=== PATIENT | male | born 1955 | race Caucasian/White ===

== ENCOUNTER 2018-04-02 12:10 | Emergency (ER) | payer BC ==
[~2018-04-02] VITALS: Ht 188 cm; Wt 127.2 kg
[~2018-04-02 12:10] MED LIST: ARA20T; BUDE0.5A11 IH; CLIN150C2 PO; CLON-527 PO; FLUO20CA39 PO; FOLI0.4T2 PO; FURO-150 PO; GEMF600T89 PO; HYDR-4353 PO; LISI10TA4 PO; MECL12.584 PO; METO-292 PO; METO50TA17 PO; MONT10TA24 PO; ONDA8TAB6 PO; PANC1CAP PO; PANT-47 PO; QUELT PO; THI100T PO; VALA100027 PO
[2018-04-02] MEDS ORDERED: GABA-530 PO (12:55)
[2018-04-02 13:28] LABS: BASOPHILS % (AUTO) 0.2 % (0-1); EOSINOPHILS % (AUTO) 0.4 % (0-6); HEMATOCRIT 41.6 % (42.0-52.0); HEMOGLOBIN 14.3 g/dl (14.0-17.9); LYMPHOCYTES # (AUTO) 0.9 X10'3 (1.1-4.8); LYMPHOCYTES % (AUTO) 11.1 % (21-51); MEAN CORPUSCULAR HEMOGLOBIN 32.7 PG (27.0-31.0); MEAN CORPUSCULAR HGB CONC 34.2 g/dL (33.0-36.5); MEAN CORPUSCULAR VOLUME 95.5 FL (78-98); MEAN PLATELET VOLUME 7.5 FL (7.4-10.4); MONOCYTES # (AUTO) 0.8 X10'3 (0-0.9); MONOCYTES % (AUTO) 10.3 % (2-12); NEUTROPHILS # (AUTO) 6.1 X10'3 (1.8-7.7); PLATELET COUNT 179 X10'3 (140-440); RED BLOOD COUNT 4.36 X10'6 (4.70-6.10); RED CELL DISTRIBUTION WIDTH 14.8 % (11.5-14.5); WHITE BLOOD COUNT 7.8 X10'3 (4.5-11.0)
[2018-04-02 13:45] LABS: ALANINE AMINOTRANSFERASE 42 U/L (12-78); ALBUMIN 3.6 G/DL (3.4-5.0); ALBUMIN/GLOBULIN RATIO 1.1 (1.1-1.5); ALKALINE PHOSPHATASE 84 IU/L (46-116); ANION GAP 13 (8-16); ASPARTATE AMINO TRANSFERASE 35 U/L (10-37); BLOOD UREA NITROGEN 19 MG/DL (7-18); BUN/CREATININE RATIO 27.1 (5.4-32.0); CALCIUM 8.9 MG/DL (8.5-10.1); CHLORIDE 97 MMOL/L (99-107); GLUCOSE 134 MG/DL (70-104); POTASSIUM 3.7 MMOL/L (3.5-5.1); SODIUM 138 MMOL/L (135-145); TOTAL CARBON DIOXIDE 28.1 MMOL/L (24-32); TOTAL PROTEIN 6.9 G/DL (6.4-8.2); eGFR > 90 ML/MIN
--- NOTE | 2018-04-02 14:41 | NUR ---
Call to Sadie to inform that Pt. is ready for D/C.
[2018-04-02 15:30] VITALS: BP 206/123
== END 2018-04-02 15:32 | disposition home or self-care (01) ==
LOC: ER 12:10
DX: R56.9 Unspecified convulsions (principal); R42 Dizziness and giddiness; R50.9 Fever, unspecified; R51 Headache; M25.511 Pain in right shoulder; R06.02 Shortness of breath; R18.8 Other ascites; I10 Essential (primary) hypertension; E78.00 Pure hypercholesterolemia, unspecified; J44.9 Chronic obstructive pulmonary disease, unspecified; F10.10 Alcohol abuse, uncomplicated; Z79.899 Other long term (current) drug therapy; Z88.7 Allergy status to serum and vaccine; Z87.891 Personal history of nicotine dependence; Y90.9 Presence of alcohol in blood, level not specified
CPT/HCPCS: 36415; 80053; 85025; 93005; 99284

== ENCOUNTER 2020-01-06 16:45 | Inpatient (IN) | payer BC ==
[~2020-01-06] VITALS: Ht 188 cm; Wt 127.7 kg
[~2020-01-06 16:45] MED LIST changes: -CLIN150C2 PO; +GABA-530 PO; +MECL-183 PO; -MECL12.584 PO; -MONT10TA24 PO; +MONT10TA26 PO; -VALA100027 PO; +VALA100031 PO
[2020-01-06 18:09] LABS: ALANINE AMINOTRANSFERASE 49 U/L (12-78); ALBUMIN 2.8 G/DL (3.4-5.0); ALBUMIN/GLOBULIN RATIO 0.7 (1.1-1.5); ALKALINE PHOSPHATASE 177 IU/L (46-116); ANION GAP 11 (8-16); ASPARTATE AMINO TRANSFERASE 95 U/L (10-37); BILIRUBIN,TOTAL 0.5 MG/DL (0.1-1.0); BLOOD UREA NITROGEN 11 MG/DL (7-18); BUN/CREATININE RATIO 12.9 (5.4-32.0); CALCIUM 8.6 MG/DL (8.5-10.1); CHLORIDE 97 MMOL/L (99-107); CREATININE 0.85 MG/DL (0.60-1.10); GLUCOSE 106 MG/DL (70-104); POTASSIUM 3.8 MMOL/L (3.5-5.1); SODIUM 133 MMOL/L (135-145); TOTAL CARBON DIOXIDE 24.8 MMOL/L (24-32); TOTAL PROTEIN 6.6 G/DL (6.4-8.2); eGFR > 90 ML/MIN
[2020-01-06 18:44] LABS: ETHANOL 0.163 GM/DL (0.0-0.010)
[2020-01-06 18:46] LABS: BASOPHILS # (AUTO) 0.1 X10'3 (0-0.2); BASOPHILS % (AUTO) 0.9 % (0-1); EOSINOPHILS # (AUTO) 0.5 X10'3 (0-0.9); EOSINOPHILS % (AUTO) 6.1 % (0-6); HEMATOCRIT 28.4 % (42.0-52.0); HEMOGLOBIN 9.8 g/dl (14.0-17.9); LYMPHOCYTES # (AUTO) 2.5 X10'3 (1.1-4.8); LYMPHOCYTES % (AUTO) 31.6 % (21-51); MEAN CORPUSCULAR HEMOGLOBIN 34.6 PG (27.0-31.0); MEAN CORPUSCULAR HGB CONC 34.5 g/dL (33.0-36.5); MEAN CORPUSCULAR VOLUME 100.5 FL (78-98); MEAN PLATELET VOLUME 8.6 FL (7.4-10.4); MONOCYTES # (AUTO) 1.2 X10'3 (0-0.9); MONOCYTES % (AUTO) 15.8 % (2-12); NEUTROPHILS # (AUTO) 3.6 X10'3 (1.8-7.7); NEUTROPHILS % (AUTO) 45.6 % (42-75); RED BLOOD COUNT 2.83 X10'6 (4.70-6.10); RED CELL DISTRIBUTION WIDTH 15.1 % (11.5-14.5); WHITE BLOOD COUNT 7.9 X10'3 (4.5-11.0)
[2020-01-06 19:10] LABS: CLARITY,URINE CLEAR (Clear); COLOR,URINE YELLOW (Yellow); GLUCOSE, URINE NEGATIVE (Neg); KETONES,URINE NEGATIVE (Neg); LEUKOCYTE ESTERASE ,URINE NEGATIVE (Neg); NITRITES, URINE NEGATIVE (Neg); OCCULT BLOOD,URINE NEGATIVE (Neg); PH,URINE 5.5 (4.8-8.0); PROTEIN,URINE NEGATIVE (Neg); UROBILINOGEN,URINE 0.2 E.U/dL (0.2-1.0)
[2020-01-06 19:19] LABS: PLATELET COUNT 41 X10'3 (140-440)
[2020-01-06 19:22] LABS: UA COLLECTION TYPE CLN CATCH MIDSTREAM
[2020-01-06] MEDS ORDERED: CefTRIAXone 2gm/D5W 50ml BAG 50 ML IV ONE (19:40)
[2020-01-06] MEDS ORDERED: vancomycin/NS 1 GM ADD-VANTAGE 250 ML IV ONE (19:40)
[2020-01-06] MEDS ORDERED: magnesium hydroxide 30ml (MOM) UD suspension PO PRN (20:35)
[2020-01-06] MEDS ORDERED: ondansetron/PF 4mg/2ml inj IV PRN (20:35)
[2020-01-06] MEDS ORDERED: potassium CL 10mEq/100ml bag 100 ML IV PRN ×2 (20:35)
[2020-01-06] MEDS ORDERED: potassium Cl 20 mEq SR tablet PO PRN ×2 (20:35)
[2020-01-06] MEDS ORDERED: LISI-600 PO (20:46)
[2020-01-06] MEDS ORDERED: HYDR-4353 PO (20:46)
[2020-01-06] MEDS ORDERED: LEVO500T89 PO (20:46)
[2020-01-06] MEDS ORDERED: LIPA1CAP18 PO (20:46)
[2020-01-06] MEDS ORDERED: FLO0.4C PO (20:46)
[2020-01-06] MEDS ORDERED: GEMF600T89 PO (20:46)
[2020-01-06] MEDS ORDERED: MULT-1085 PO (20:46)
[2020-01-06] MEDS ORDERED: PANT40TA54 PO (20:46)
[2020-01-06] MEDS ORDERED: PHEN-893 (20:46)
[2020-01-06] MEDS ORDERED: CEPH-572 PO (20:46)
[2020-01-06] MEDS ORDERED: FLUO20CA39 PO (20:46)
[2020-01-06] MEDS ORDERED: ONDA4TAB12 PO (20:46)
[2020-01-06] MEDS ORDERED: MOME17SP BOTHNARES (20:46)
[2020-01-06] MEDS ORDERED: MONT10TA26 PO (20:46)
[2020-01-06] MEDS ORDERED: CLON-527 PO (20:46)
[2020-01-06] MEDS: furosemide 10 MG/1 ML 10ml inj IV SCH (21:22)
[2020-01-06] MEDS: FLUoxetine 10mg capsule PO SCH (21:22)
[2020-01-06] MEDS: HYDROcodone/acetaminophen 10/325mg tab PO PRN (22:12)
[2020-01-06] MEDS: clonazePAM 0.5mg tablet PO SCH (22:12)
[2020-01-06] MEDS: LORazepam 2 mg/ml vial IV PRN (22:12)
[2020-01-06 23:05] VITALS: BP 125/66
[2020-01-07] MEDS ORDERED: vancomycin/NS 1 GM ADD-VANTAGE 250 ML IV SCH (04:00)
[2020-01-07] MEDS: HYDROcodone/acetaminophen 10/325mg tab PO PRN ×4 (04:23→20:27)
[2020-01-07] MEDS: LORazepam 2 mg/ml vial IV PRN ×3 (04:23→20:30)
[2020-01-07 06:00] VITALS: BP_SYST 104; BP_SYST 113; BP_DIAS 50; BP_DIAS 83
--- NOTE | 2020-01-07 06:05 | NUR ---
REPORT GIVEN TO JAM ASIF.
[2020-01-07 06:36] LABS: BASOPHILS % (AUTO) 0.5 % (0-1); EOSINOPHILS # (AUTO) 0.4 X10'3 (0-0.9); EOSINOPHILS % (AUTO) 4.4 % (0-6); HEMATOCRIT 29.2 % (42.0-52.0); HEMOGLOBIN 10.1 g/dl (14.0-17.9); LYMPHOCYTES # (AUTO) 1.3 X10'3 (1.1-4.8); LYMPHOCYTES % (AUTO) 15.5 % (21-51); MEAN CORPUSCULAR HEMOGLOBIN 34.6 PG (27.0-31.0); MEAN CORPUSCULAR HGB CONC 34.7 g/dL (33.0-36.5); MEAN CORPUSCULAR VOLUME 99.8 FL (78-98); MEAN PLATELET VOLUME 8.4 FL (7.4-10.4); MONOCYTES # (AUTO) 1.6 X10'3 (0-0.9); MONOCYTES % (AUTO) 18.8 % (2-12); NEUTROPHILS # (AUTO) 5.2 X10'3 (1.8-7.7); NEUTROPHILS % (AUTO) 60.8 % (42-75); RED BLOOD COUNT 2.93 X10'6 (4.70-6.10); WHITE BLOOD COUNT 8.6 X10'3 (4.5-11.0)
[2020-01-07 06:44] LABS: PLATELET COUNT 41 X10'3 (140-440)
--- NOTE | 2020-01-07 06:49 | NUR ---
Patient in room ORTHO 4021A. I have received report from JAM WEBER and had the opportunity to ask questions and assume patient care.
[2020-01-07 06:50] LABS: ALANINE AMINOTRANSFERASE 54 U/L (12-78); ALBUMIN 2.7 G/DL (3.4-5.0); ALBUMIN/GLOBULIN RATIO 0.7 (1.1-1.5); ALKALINE PHOSPHATASE 163 IU/L (46-116); ANION GAP 7 (8-16); ASPARTATE AMINO TRANSFERASE 116 U/L (10-37); BLOOD UREA NITROGEN 11 MG/DL (7-18); BUN/CREATININE RATIO 14.3 (5.4-32.0); CALCIUM 8.5 MG/DL (8.5-10.1); CHLORIDE 101 MMOL/L (99-107); CREATININE 0.77 MG/DL (0.60-1.10); GLUCOSE 113 MG/DL (70-104); POTASSIUM 4.5 MMOL/L (3.5-5.1); SODIUM 137 MMOL/L (135-145); TOTAL CARBON DIOXIDE 29.1 MMOL/L (24-32); TOTAL PROTEIN 6.4 G/DL (6.4-8.2); eGFR > 90 ML/MIN
--- NOTE | 2020-01-07 07:03 | NUR ---
Page Sent PAGER ID: [phone] MESSAGE: YEFRI 5430-RE: KAY SAEED, 4021A...CRITICAL LAB PLT 41
[2020-01-07 07:09] LABS: TOTAL CELLS COUNTED 100
[2020-01-07 07:10] LABS: PLATELET ESTIMATE DECREASED
[2020-01-07] MEDS: K and/or MAG REPLACEMENT MC SCH ×2 (07:13→20:00)
[2020-01-07] MEDS: tamsulosin 0.4mg capsule PO SCH (08:05)
[2020-01-07] MEDS: clonazePAM 0.5mg tablet PO SCH ×4 (08:06→20:27)
[2020-01-07] MEDS: gemfibrozil 600mg tablet PO SCH (08:06)
[2020-01-07] MEDS: pantoprazole 40mg Tablet.DR PO SCH (08:06)
[2020-01-07] MEDS: FLUoxetine 10mg capsule PO SCH ×3 (08:07→20:27)
[2020-01-07] MEDS: lisinopril 10 MG tablet PO SCH (08:07)
[2020-01-07] MEDS: spironolactone 25 MG tablet PO SCH (08:08)
[2020-01-07] MEDS: thiamine 100mg tablet PO SCH (08:08)
[2020-01-07] MEDS: fluticasone nasal spray 16GM bottle NS SCH (08:09)
[2020-01-07] MEDS: furosemide 10 MG/1 ML 10ml inj IV SCH ×2 (08:13→20:30)
[2020-01-07] MEDS: CefTRIAXone/D5W-Rocephin 1gm 50 ML IV SCH (08:18)
[2020-01-07] MEDS: vancomycin/NS 1 GM ADD-VANTAGE 250 ML IV SCH ×2 (10:55→20:25)
[2020-01-07] MEDS: mineral oil/petrolatum, white cream 113gm jar TP SCH (17:32)
[2020-01-07 18:00] VITALS: BP 127/53
--- NOTE | 2020-01-07 18:24 | NUR ---
Problems reprioritized. Patient report given, questions answered & plan of care reviewed with JAM ALCANTARA.
[2020-01-07] MEDS: NYSTATIN CREAM - 30GM TUBE TP SCH (20:00)
[2020-01-07 22:00] VITALS: BP 141/68
[2020-01-08] MEDS: LORazepam 2 mg/ml vial IV PRN ×2 (00:53→19:07)
--- NOTE | 2020-01-08 03:20 | NUR ---
PAGER ID: [phone] MESSAGE: "[id number] Carlitos Ott Patient is experiencing extreme pain rating at a 9 out of 10. Current Marblemount 10mg frequency is BID. Vital signs stable, RR of 18. Can we change his frequency to Q6Hr PRN? Thank You, Ria RN #[phone]" [id number] Dr Garcia approved giving one additional dose of Marblemount 10mg now and reevaluating the frequency with the attending physician during morning rounds.
[2020-01-08] MEDS: vancomycin/NS 1 GM ADD-VANTAGE 250 ML IV SCH (03:47)
[2020-01-08] MEDS: HYDROcodone/acetaminophen 10/325mg tab PO PRN ×2 (03:48→14:37)
[2020-01-08 06:00] VITALS: BP 118/62
[2020-01-08 06:05] LABS: BASOPHILS % (AUTO) 0.3 % (0-1); EOSINOPHILS # (AUTO) 0.5 X10'3 (0-0.9); EOSINOPHILS % (AUTO) 6.4 % (0-6); HEMATOCRIT 29.8 % (42.0-52.0); HEMOGLOBIN 10.4 g/dl (14.0-17.9); LYMPHOCYTES # (AUTO) 1.9 X10'3 (1.1-4.8); LYMPHOCYTES % (AUTO) 24.9 % (21-51); MEAN CORPUSCULAR HEMOGLOBIN 34.8 PG (27.0-31.0); MEAN CORPUSCULAR HGB CONC 34.8 g/dL (33.0-36.5); MEAN CORPUSCULAR VOLUME 99.9 FL (78-98); MEAN PLATELET VOLUME 8.8 FL (7.4-10.4); MONOCYTES # (AUTO) 1.6 X10'3 (0-0.9); MONOCYTES % (AUTO) 20.6 % (2-12); NEUTROPHILS # (AUTO) 3.7 X10'3 (1.8-7.7); NEUTROPHILS % (AUTO) 47.8 % (42-75); RED BLOOD COUNT 2.98 X10'6 (4.70-6.10); RED CELL DISTRIBUTION WIDTH 15.3 % (11.5-14.5); WHITE BLOOD COUNT 7.7 X10'3 (4.5-11.0)
--- NOTE | 2020-01-08 06:14 | NUR ---
Problems reprioritized. Patient report given, questions answered & plan of care reviewed with JAM Swift.
[2020-01-08 06:17] LABS: ALANINE AMINOTRANSFERASE 55 U/L (12-78); ALBUMIN 2.8 G/DL (3.4-5.0); ALBUMIN/GLOBULIN RATIO 0.7 (1.1-1.5); ALKALINE PHOSPHATASE 165 IU/L (46-116); ANION GAP 6 (8-16); ASPARTATE AMINO TRANSFERASE 84 U/L (10-37); BILIRUBIN,TOTAL 1.1 MG/DL (0.1-1.0); BLOOD UREA NITROGEN 9 MG/DL (7-18); BUN/CREATININE RATIO 11.5 (5.4-32.0); CALCIUM 8.8 MG/DL (8.5-10.1); CHLORIDE 102 MMOL/L (99-107); CREATININE 0.78 MG/DL (0.60-1.10); GLUCOSE 116 MG/DL (70-104); SODIUM 138 MMOL/L (135-145); TOTAL CARBON DIOXIDE 29.9 MMOL/L (24-32); TOTAL PROTEIN 6.6 G/DL (6.4-8.2); eGFR > 90 ML/MIN
[2020-01-08 06:37] LABS: PLATELET COUNT 50 X10'3 (140-440)
--- NOTE | 2020-01-08 06:38 | NUR ---
Patient in room ORTHO 4021A. I have received report from JAM ALCANTARA and had the opportunity to ask questions and assume patient care.
--- NOTE | 2020-01-08 07:20 | NUR ---
Page Sent PAGER ID: [phone] MESSAGE: KAY LYNCH 4021A...CRITICAL LAB...PLT 50...YESTERDAY PLT 41
[2020-01-08] MEDS: K and/or MAG REPLACEMENT MC SCH ×2 (07:23→20:00)
[2020-01-08] MEDS: tamsulosin 0.4mg capsule PO SCH (08:08)
[2020-01-08] MEDS: gemfibrozil 600mg tablet PO SCH (08:08)
[2020-01-08] MEDS: clonazePAM 0.5mg tablet PO SCH ×4 (08:08→21:38)
[2020-01-08] MEDS: pantoprazole 40mg Tablet.DR PO SCH (08:09)
[2020-01-08] MEDS: thiamine 100mg tablet PO SCH (08:09)
[2020-01-08] MEDS: FLUoxetine 10mg capsule PO SCH ×3 (08:09→21:38)
[2020-01-08] MEDS: cetirizine 10mg tablet PO SCH (08:10)
[2020-01-08] MEDS: lisinopril 10 MG tablet PO SCH (08:10)
[2020-01-08] MEDS: spironolactone 25 MG tablet PO SCH (08:12)
[2020-01-08] MEDS: fluticasone nasal spray 16GM bottle NS SCH (08:13)
[2020-01-08] MEDS: furosemide 10 MG/1 ML 10ml inj IV SCH ×2 (08:15→21:36)
[2020-01-08] MEDS: CefTRIAXone/D5W-Rocephin 1gm 50 ML IV SCH (08:23)
[2020-01-08] MEDS: NYSTATIN CREAM - 30GM TUBE TP SCH ×2 (08:35→20:00)
[2020-01-08] MEDS: mineral oil/petrolatum, white cream 113gm jar TP SCH (08:35)
[2020-01-08 10:00] VITALS: BP 109/55
[2020-01-08] MEDS ORDERED: VANCOMYCIN LEVEL IV ONE (10:30)
--- NOTE | 2020-01-08 12:28 | NUR ---
Page Sent PAGER ID: [phone] MESSAGE: YEFRI 5430-RE: KAY SAEED 4021A...JUST RECIEVED MEDICAL RECORDS FROM [facility]
[2020-01-08] MEDS: VANCOmycin 1250MG/NS 250ml Bag 250 ML IV SCH ×2 (14:33→21:36)
[2020-01-08] MEDS: mag hydrox/Alum hydrox/simeth 30ml oral suspension PO PRN (17:31)
[2020-01-08 18:00] VITALS: BP 109/70
--- NOTE | 2020-01-08 18:23 | NUR ---
Problems reprioritized. Patient report given, questions answered & plan of care reviewed with JAM ESQUIVEL.
--- NOTE | 2020-01-08 18:36 | NUR ---
Patient in room ORTHO 4021. I have received report from Jeniffer POLK and had the opportunity to ask questions and assume patient care.
[2020-01-08] MEDS ORDERED: LORazepam 2 mg/ml vial IV PRN (20:40)
[2020-01-08] MEDS: lactobacillus rhamnosus 10,000 MMU CELLS/CAPSULE PO SCH (21:38)
[2020-01-08 22:00] VITALS: BP 117/63
[2020-01-09] MEDS: HYDROcodone/acetaminophen 10/325mg tab PO PRN ×5 (00:54→22:33)
[2020-01-09] MEDS: LORazepam 1 MG tablet PO PRN ×2 (02:45→22:33)
[2020-01-09] MEDS: VANCOmycin 1250MG/NS 250ml Bag 250 ML IV SCH ×2 (04:12→12:07)
[2020-01-09 06:00] VITALS: BP 135/66
--- NOTE | 2020-01-09 06:29 | NUR ---
Problems reprioritized. Patient report given, questions answered & plan of care reviewed with Tamara POLK.
[2020-01-09 06:46] LABS: BASOPHILS % (AUTO) 0.4 % (0-1); EOSINOPHILS # (AUTO) 0.6 X10'3 (0-0.9); EOSINOPHILS % (AUTO) 7.5 % (0-6); HEMATOCRIT 28.9 % (42.0-52.0); LYMPHOCYTES # (AUTO) 2.2 X10'3 (1.1-4.8); LYMPHOCYTES % (AUTO) 25.9 % (21-51); MEAN CORPUSCULAR HEMOGLOBIN 34.5 PG (27.0-31.0); MEAN CORPUSCULAR HGB CONC 34.5 g/dL (33.0-36.5); MEAN CORPUSCULAR VOLUME 100.1 FL (78-98); MEAN PLATELET VOLUME 8.6 FL (7.4-10.4); MONOCYTES # (AUTO) 1.6 X10'3 (0-0.9); MONOCYTES % (AUTO) 18.3 % (2-12); NEUTROPHILS # (AUTO) 4.1 X10'3 (1.8-7.7); NEUTROPHILS % (AUTO) 47.9 % (42-75); PLATELET COUNT 83 X10'3 (140-440); RED BLOOD COUNT 2.88 X10'6 (4.70-6.10); RED CELL DISTRIBUTION WIDTH 15.3 % (11.5-14.5); WHITE BLOOD COUNT 8.5 X10'3 (4.5-11.0)
[2020-01-09 07:24] LABS: % IRON SATURATION 11 % (11-46); IRON 25 UG/DL (53-167); TOTAL IRON BINDING CAPACITY 232 UG/DL (259-388)
[2020-01-09 07:29] LABS: ALANINE AMINOTRANSFERASE 48 U/L (12-78); ALBUMIN 2.8 G/DL (3.4-5.0); ALBUMIN/GLOBULIN RATIO 0.7 (1.1-1.5); ALKALINE PHOSPHATASE 150 IU/L (46-116); ANION GAP 7 (8-16); ASPARTATE AMINO TRANSFERASE 59 U/L (10-37); BILIRUBIN,TOTAL 0.7 MG/DL (0.1-1.0); BLOOD UREA NITROGEN 11 MG/DL (7-18); BUN/CREATININE RATIO 13.1 (5.4-32.0); CALCIUM 8.8 MG/DL (8.5-10.1); CHLORIDE 101 MMOL/L (99-107); CREATININE 0.84 MG/DL (0.60-1.10); FERRITIN 442 NG/ML (26-388); GLUCOSE 108 MG/DL (70-104); POTASSIUM 3.5 MMOL/L (3.5-5.1); SODIUM 140 MMOL/L (135-145); TOTAL PROTEIN 6.6 G/DL (6.4-8.2); eGFR > 90 ML/MIN
[2020-01-09 07:57] LABS: PLATELET ESTIMATE DECREASED; TOTAL CELLS COUNTED 100
[2020-01-09] MEDS: NYSTATIN CREAM - 30GM TUBE TP SCH ×2 (08:00→20:35)
[2020-01-09] MEDS: K and/or MAG REPLACEMENT MC SCH ×2 (08:00→20:00)
[2020-01-09] MEDS: mineral oil/petrolatum, white cream 113gm jar TP SCH (08:00)
[2020-01-09] MEDS: lactobacillus rhamnosus 10,000 MMU CELLS/CAPSULE PO SCH ×2 (09:10→20:33)
[2020-01-09] MEDS: cetirizine 10mg tablet PO SCH (09:11)
[2020-01-09] MEDS: clonazePAM 0.5mg tablet PO SCH ×4 (09:11→20:33)
[2020-01-09] MEDS: tamsulosin 0.4mg capsule PO SCH (09:11)
[2020-01-09] MEDS: gemfibrozil 600mg tablet PO SCH (09:11)
[2020-01-09] MEDS: thiamine 100mg tablet PO SCH (09:12)
[2020-01-09] MEDS: lisinopril 10 MG tablet PO SCH (09:12)
[2020-01-09] MEDS: spironolactone 25 MG tablet PO SCH (09:13)
[2020-01-09] MEDS: FLUoxetine 10mg capsule PO SCH ×3 (09:13→20:33)
[2020-01-09] MEDS: pantoprazole 40mg Tablet.DR PO SCH (09:13)
[2020-01-09] MEDS: furosemide 10 MG/1 ML 10ml inj IV SCH ×2 (09:14→20:34)
[2020-01-09] MEDS: fluticasone nasal spray 16GM bottle NS SCH (09:15)
[2020-01-09] MEDS: CefTRIAXone/D5W-Rocephin 1gm 50 ML IV SCH (09:15)
[2020-01-09 10:00] VITALS: BP 121/60
--- NOTE | 2020-01-09 11:08 | NUR ---
Patient in room ORTHO 4021. I have received report from Tamara. JAM and had the opportunity to ask questions and assume patient care.
[2020-01-09] MEDS ORDERED: VANCOMYCIN LEVEL IV ONE (11:30)
--- NOTE | 2020-01-09 11:30 | NUR ---
Report called to Jenelle- tranferred patient to surgical 344A- all belongings sent with patient.
--- NOTE | 2020-01-09 12:20 | NUR ---
Vanco trough 20.3. Pharmacy informed; stated give 1200 dose, will adjust next dose. Pt resting in room V/S 98.0, 79,18,96% R/A, 130/73. C/O 9/10 pain PRN pain med given.
[2020-01-09 12:24] VITALS: BP 130/73
[2020-01-09 18:15] VITALS: BP 119/70
--- NOTE | 2020-01-09 18:39 | NUR ---
Problems reprioritized. Patient report given, questions answered & plan of care reviewed with JAM Mahmood.
--- NOTE | 2020-01-09 18:40 | NUR ---
Patient in room NEDA 344. I have received report from JAM Almanzar and had the opportunity to ask questions and assume patient care.
[2020-01-09] MEDS: mag hydrox/Alum hydrox/simeth 30ml oral suspension PO PRN (20:33)
[2020-01-09] MEDS: vancomycin/NS 1 GM ADD-VANTAGE 250 ML IV SCH (20:35)
[2020-01-10 00:15] VITALS: BP 127/68
[2020-01-10] MEDS: HYDROcodone/acetaminophen 10/325mg tab PO PRN ×5 (03:32→23:28)
[2020-01-10] MEDS: vancomycin/NS 1 GM ADD-VANTAGE 250 ML IV SCH ×3 (04:46→21:22)
[2020-01-10] MEDS: LORazepam 1 MG tablet PO PRN (04:54)
--- NOTE | 2020-01-10 05:00 | NUR ---
Pt c/o of generalized itchy. Paged Dr. Brady for anti-itch med.
--- NOTE | 2020-01-10 06:30 | NUR ---
Patient in room NEDA 344. I have received report from JAM Mahmood and had the opportunity to ask questions and assume patient care.
--- NOTE | 2020-01-10 06:49 | NUR ---
Problems reprioritized. Patient report given, questions answered & plan of care reviewed with JAM Almanzar.
[2020-01-10 07:03] LABS: BASOPHILS # (AUTO) 0.1 X10'3 (0-0.2); BASOPHILS % (AUTO) 0.5 % (0-1); EOSINOPHILS # (AUTO) 0.8 X10'3 (0-0.9); EOSINOPHILS % (AUTO) 7.8 % (0-6); HEMOGLOBIN 10.8 g/dl (14.0-17.9); LYMPHOCYTES # (AUTO) 2.4 X10'3 (1.1-4.8); LYMPHOCYTES % (AUTO) 23.9 % (21-51); MEAN CORPUSCULAR HEMOGLOBIN 34.1 PG (27.0-31.0); MEAN CORPUSCULAR HGB CONC 33.9 g/dL (33.0-36.5); MEAN CORPUSCULAR VOLUME 100.5 FL (78-98); MEAN PLATELET VOLUME 7.6 FL (7.4-10.4); MONOCYTES # (AUTO) 1.9 X10'3 (0-0.9); MONOCYTES % (AUTO) 18.2 % (2-12); NEUTROPHILS # (AUTO) 5.1 X10'3 (1.8-7.7); NEUTROPHILS % (AUTO) 49.6 % (42-75); PLATELET COUNT 143 X10'3 (140-440); RED BLOOD COUNT 3.18 X10'6 (4.70-6.10); RED CELL DISTRIBUTION WIDTH 15.2 % (11.5-14.5); WHITE BLOOD COUNT 10.2 X10'3 (4.5-11.0)
[2020-01-10] MEDS: furosemide 10 MG/1 ML 10ml inj IV SCH ×2 (07:19→21:21)
[2020-01-10 07:21] LABS: ALANINE AMINOTRANSFERASE 45 U/L (12-78); ALBUMIN 3.1 G/DL (3.4-5.0); ALBUMIN/GLOBULIN RATIO 0.8 (1.1-1.5); ALKALINE PHOSPHATASE 167 IU/L (46-116); ANION GAP 8 (8-16); ASPARTATE AMINO TRANSFERASE 61 U/L (10-37); BILIRUBIN,TOTAL 0.6 MG/DL (0.1-1.0); BLOOD UREA NITROGEN 13 MG/DL (7-18); BUN/CREATININE RATIO 14.8 (5.4-32.0); CALCIUM 9.2 MG/DL (8.5-10.1); CHLORIDE 103 MMOL/L (99-107); CREATININE 0.88 MG/DL (0.60-1.10); GLUCOSE 111 MG/DL (70-104); POTASSIUM 3.6 MMOL/L (3.5-5.1); SODIUM 141 MMOL/L (135-145); TOTAL CARBON DIOXIDE 29.6 MMOL/L (24-32); TOTAL PROTEIN 7.1 G/DL (6.4-8.2); eGFR 87 ML/MIN
[2020-01-10] MEDS: CefTRIAXone/D5W-Rocephin 1gm 50 ML IV SCH (07:21)
[2020-01-10] MEDS: lactobacillus rhamnosus 10,000 MMU CELLS/CAPSULE PO SCH ×2 (07:26→21:22)
[2020-01-10] MEDS: tamsulosin 0.4mg capsule PO SCH (07:26)
[2020-01-10] MEDS: lisinopril 10 MG tablet PO SCH (07:26)
[2020-01-10] MEDS: clonazePAM 0.5mg tablet PO SCH ×4 (07:26→21:22)
[2020-01-10] MEDS: gemfibrozil 600mg tablet PO SCH (07:27)
[2020-01-10] MEDS: thiamine 100mg tablet PO SCH (07:27)
[2020-01-10] MEDS: pantoprazole 40mg Tablet.DR PO SCH (07:27)
[2020-01-10] MEDS: cetirizine 10mg tablet PO SCH (07:27)
[2020-01-10] MEDS: FLUoxetine 10mg capsule PO SCH ×3 (07:28→21:21)
[2020-01-10] MEDS: fluticasone nasal spray 16GM bottle NS SCH (07:29)
[2020-01-10] MEDS: spironolactone 25 MG tablet PO SCH (07:32)
[2020-01-10 08:00] VITALS: BP 134/83
[2020-01-10] MEDS: K and/or MAG REPLACEMENT MC SCH ×2 (08:00→20:00)
[2020-01-10] MEDS: NYSTATIN CREAM - 30GM TUBE TP SCH ×2 (08:00→21:22)
[2020-01-10] MEDS: mineral oil/petrolatum, white cream 113gm jar TP SCH (08:00)
[2020-01-10 08:01] LABS: TOTAL CELLS COUNTED 100
[2020-01-10 08:02] LABS: PLATELET ESTIMATE NORMAL
[2020-01-10 08:03] LABS: POLYCHROMASIA FEW
[2020-01-10 08:04] LABS: GIANT PLATELET FEW
[2020-01-10 08:05] LABS: LARGE PLATELETS FEW
--- NOTE | 2020-01-10 15:06 | NUR ---
Initial: Pt admit with BLE cellulitis. Per WO notes pt with BLE dried venous ulcers and some partial thickness openings to gluteal sulcus and under pannus. Pt currently on a heart healthy diet documented with mostly average 75-100% PO intake meeting estimated nutrient needs with adequate protein to support skin integrity. Multiple attempted visits with pt at bedside to obtain food preferences and assess need for nutrition intervention however pt unavailable. LB 01/08. No nutrition intervention implemented at this time. Will continue to follow. Recommendations: 1) Continue heart healthy diet 2) Monitor need for additional protein 3) Bowel care per rx 4) Scaled weights per rx Addendum: 01/10/20 at [address] Amended: Links added.
[2020-01-10 18:15] VITALS: BP 131/75
--- NOTE | 2020-01-10 18:42 | NUR ---
Problems reprioritized. Patient report given, questions answered & plan of care reviewed with JAM Mahmood.
--- NOTE | 2020-01-10 18:49 | NUR ---
Patient in room NEDA 344. I have received report from JAM Almanzar and had the opportunity to ask questions and assume patient care.
[2020-01-10] MEDS ORDERED: VANCOMYCIN LEVEL IV ONE (19:30)
[2020-01-10] MEDS ORDERED: LORazepam 1 MG tablet PO PRN (20:40)
--- NOTE | 2020-01-10 21:20 | NUR ---
[facility] 21.5. Talked to Pharmacist, Pancho and okay to administered bag at 2000
[2020-01-10] MEDS: hydrocortisone 1% cream 28gm TP SCH (21:22)
[2020-01-10] MEDS: mag hydrox/Alum hydrox/simeth 30ml oral suspension PO PRN (23:28)
[2020-01-10] MEDS: benzocaine/menthol oral lozeng 1 EACH BOX MM PRN (23:31)
[2020-01-11 00:15] VITALS: BP 129/63
[2020-01-11 03:59] LABS: OCCULT BLOOD STOOL POSITIVE (Neg)
[2020-01-11] MEDS: vancomycin/NS 1 GM ADD-VANTAGE 250 ML IV SCH ×2 (04:58→05:45)
[2020-01-11] MEDS: HYDROcodone/acetaminophen 10/325mg tab PO PRN ×2 (05:42→10:44)
[2020-01-11 06:01] LABS: BASOPHILS % (AUTO) 0.4 % (0-1); EOSINOPHILS # (AUTO) 0.9 X10'3 (0-0.9); EOSINOPHILS % (AUTO) 8.3 % (0-6); HEMATOCRIT 33.3 % (42.0-52.0); HEMOGLOBIN 11.3 g/dl (14.0-17.9); LYMPHOCYTES # (AUTO) 2.7 X10'3 (1.1-4.8); MEAN CORPUSCULAR HEMOGLOBIN 34.1 PG (27.0-31.0); MEAN CORPUSCULAR HGB CONC 33.9 g/dL (33.0-36.5); MEAN CORPUSCULAR VOLUME 100.6 FL (78-98); MEAN PLATELET VOLUME 7.7 FL (7.4-10.4); MONOCYTES # (AUTO) 1.5 X10'3 (0-0.9); MONOCYTES % (AUTO) 13.9 % (2-12); NEUTROPHILS # (AUTO) 5.7 X10'3 (1.8-7.7); NEUTROPHILS % (AUTO) 52.4 % (42-75); PLATELET COUNT 209 X10'3 (140-440); RED BLOOD COUNT 3.31 X10'6 (4.70-6.10); RED CELL DISTRIBUTION WIDTH 15.6 % (11.5-14.5); WHITE BLOOD COUNT 10.8 X10'3 (4.5-11.0)
--- NOTE | 2020-01-11 06:30 | NUR ---
Patient in room NEDA 344. I have received report from JAM Mahmood and had the opportunity to ask questions and assume patient care.
--- NOTE | 2020-01-11 06:41 | NUR ---
Problems reprioritized. Patient report given, questions answered & plan of care reviewed with JAM Armstrong.
[2020-01-11 06:48] LABS: ALANINE AMINOTRANSFERASE 46 U/L (12-78); ALBUMIN 3.2 G/DL (3.4-5.0); ALBUMIN/GLOBULIN RATIO 0.7 (1.1-1.5); ALKALINE PHOSPHATASE 162 IU/L (46-116); ANION GAP 11 (8-16); BILIRUBIN,TOTAL 0.7 MG/DL (0.1-1.0); BLOOD UREA NITROGEN 14 MG/DL (7-18); BUN/CREATININE RATIO 17.1 (5.4-32.0); CALCIUM 9.1 MG/DL (8.5-10.1); CHLORIDE 99 MMOL/L (99-107); CREATININE 0.82 MG/DL (0.60-1.10); GLUCOSE 94 MG/DL (70-104); SODIUM 138 MMOL/L (135-145); TOTAL CARBON DIOXIDE 27.7 MMOL/L (24-32); TOTAL PROTEIN 7.7 G/DL (6.4-8.2); eGFR > 90 ML/MIN
[2020-01-11 06:54] LABS: ASPARTATE AMINO TRANSFERASE 73 U/L (10-37); POTASSIUM 3.8 MMOL/L (3.5-5.1)
[2020-01-11 07:00] VITALS: BP 124/73
[2020-01-11] MEDS: lactobacillus rhamnosus 10,000 MMU CELLS/CAPSULE PO SCH (07:30)
[2020-01-11] MEDS: fluticasone nasal spray 16GM bottle NS SCH (07:30)
[2020-01-11] MEDS: lisinopril 10 MG tablet PO SCH (07:31)
[2020-01-11] MEDS: clonazePAM 0.5mg tablet PO SCH ×2 (07:31→14:06)
[2020-01-11] MEDS: cetirizine 10mg tablet PO SCH (07:31)
[2020-01-11] MEDS: gemfibrozil 600mg tablet PO SCH (07:31)
[2020-01-11] MEDS: FLUoxetine 10mg capsule PO SCH ×2 (07:31→14:07)
[2020-01-11] MEDS: tamsulosin 0.4mg capsule PO SCH (07:36)
[2020-01-11] MEDS: pantoprazole 40mg Tablet.DR PO SCH (07:36)
[2020-01-11] MEDS: thiamine 100mg tablet PO SCH (07:36)
[2020-01-11] MEDS: NYSTATIN CREAM - 30GM TUBE TP SCH (07:37)
[2020-01-11] MEDS: spironolactone 25 MG tablet PO SCH (07:37)
[2020-01-11] MEDS: mineral oil/petrolatum, white cream 113gm jar TP SCH (07:37)
[2020-01-11] MEDS: furosemide 10 MG/1 ML 10ml inj IV SCH ×2 (08:00→08:49)
[2020-01-11] MEDS: hydrocortisone 1% cream 28gm TP SCH (08:00)
[2020-01-11] MEDS ORDERED: VANCOMYCIN 750MG IV in NS 250 ML IV SCH (08:00)
[2020-01-11] MEDS: K and/or MAG REPLACEMENT MC SCH (08:00)
[2020-01-11] MEDS: CefTRIAXone/D5W-Rocephin 1gm 50 ML IV SCH (08:49)
[2020-01-11 11:00] VITALS: BP 122/60
[2020-01-11] MEDS: benzocaine/menthol oral lozeng 1 EACH BOX MM PRN (12:09)
[2020-01-11] MEDS ORDERED: MYC15CR TP (13:58)
[2020-01-11] MEDS ORDERED: BENZ1LOZ30 MM (13:58)
[2020-01-11] MEDS ORDERED: LACT1CAP26 PO (13:58)
[2020-01-11] MEDS ORDERED: SPIR25TA5 PO (13:58)
[2020-01-11] MEDS ORDERED: THIA50TA10 PO (13:58)
[2020-01-11] MEDS ORDERED: FOLI0.4T2 PO (13:58)
[2020-01-11] MEDS ORDERED: HYDR28CR14 TP (13:58)
[2020-01-11] MEDS ORDERED: WOOL454C TP (13:58)
[2020-01-11] MEDS ORDERED: FURO-150 PO (13:58)
[2020-01-11] MEDS ORDERED: CEFD300C3 PO (13:58)
[2020-01-12] MEDS ORDERED: VANCOMYCIN LEVEL IV ONE (07:30)
== END 2020-01-11 14:50 | disposition home health service (06) | DRG 603 ==
LOC: ER 16:46 → ED HOLD 20:34 → ORTHO 4S 22:41 → SUR 3N 01-09 11:33
PROVIDERS: ADMIT Internal Medicine; ATTEND Family Medicine
DX: L03.115 Cellulitis of right lower limb (principal); E87.2 Acidosis; D69.6 Thrombocytopenia, unspecified; L03.116 Cellulitis of left lower limb; E66.01 Morbid (severe) obesity due to excess calories; E78.00 Pure hypercholesterolemia, unspecified; E87.70 Fluid overload, unspecified; F10.10 Alcohol abuse, uncomplicated; I10 Essential (primary) hypertension; J44.9 Chronic obstructive pulmonary disease, unspecified; R63.3 Feeding difficulties; Z82.5 Family history of asthma and other chronic lower respiratory diseases; Z20.828 Contact with and (suspected) exposure to other viral communicable diseases; Z68.36 Body mass index [BMI] 36.0-36.9, adult
CPT/HCPCS: 36415; 71045; 76937; 80053; 80202; 80320; 81003; 82272; 82728; 82948; 83540; 83550; 83605; 83880; 84145; 84443; 84484; 85007; 85025; 87040; 87081; 87635; 87880; 93005; 93308; 96365; 97110; 97116; 97161; 97530; 99285; C9803; G0378; J0696; J1940; J2060; J3370; J7050

== ENCOUNTER 2020-04-05 17:48 | Inpatient (IN) | payer BC ==
[~2020-04-05] VITALS: Ht 188 cm; Wt 127.0 kg
[~2020-04-05 17:48] MED LIST changes: -ARA20T; +BENZ1LOZ30 MM; -BUDE0.5A11 IH; +FLO0.4C PO; -FOLI0.4T2 PO; -FURO-150 PO; -GABA-530 PO; +HYDR28CR14 TP; +LACT1CAP26 PO; +LIPA1CAP18 PO; -LISI10TA4 PO; +LISI20TA28 PO; -MECL-183 PO; -METO-292 PO; -METO50TA17 PO; +MOME17SP BOTHNARES; -MONT10TA26 PO; +MONT10TA32 PO; +MULT-1085 PO; +MYC15CR TP; +ONDA4TAB12 PO; -ONDA8TAB6 PO; -PANC1CAP PO; -PANT-47 PO; +PANT40TA54 PO; +PHEN-893; -QUELT PO; +SPIR25TA5 PO; -THI100T PO; +THIA50TA10 PO; -VALA100031 PO; +WOOL454C TP
--- NOTE | 2020-04-05 19:33 | NUR ---
STOOD AT BEDSIDE TO TRY TO VOID AGAIN, PATIENT UNABLE TO VOID X 2, PATIETN UNSTEADY ON FEET PA AWARE
[2020-04-05 19:43] LABS: BASOPHILS # (AUTO) 0.4 X10'3 (0-0.2); HEMOGLOBIN 10.8 g/dl (14.0-17.9); LYMPHOCYTES # (AUTO) 4.2 X10'3 (1.1-4.8); MEAN PLATELET VOLUME 7.8 FL (7.4-10.4); PLATELET COUNT 396 X10'3 (140-440); RED CELL DISTRIBUTION WIDTH 14.8 % (11.5-14.5)
[2020-04-05 19:45] LABS: BASOPHILS % (AUTO) 3.6 % (0-1); EOSINOPHILS # (AUTO) 0.4 X10'3 (0-0.9); EOSINOPHILS % (AUTO) 3.8 % (0-6); HEMATOCRIT 32.2 % (42.0-52.0); MEAN CORPUSCULAR HEMOGLOBIN 32.1 PG (27.0-31.0); MEAN CORPUSCULAR HGB CONC 33.5 g/dL (33.0-36.5); MEAN CORPUSCULAR VOLUME 96.1 FL (78-98); MONOCYTES % (AUTO) 8.6 % (2-12); NEUTROPHILS # (AUTO) 5.6 X10'3 (1.8-7.7); RED BLOOD COUNT 3.36 X10'6 (4.70-6.10); WHITE BLOOD COUNT 11.6 X10'3 (4.5-11.0)
[2020-04-05 20:20] LABS: PLATELET ESTIMATE NORMAL; TOTAL CELLS COUNTED 100
[2020-04-05 20:26] LABS: CLARITY,URINE CLEAR (Clear); COLOR,URINE YELLOW (Yellow); GLUCOSE, URINE NEGATIVE (Neg); KETONES,URINE NEGATIVE (Neg); LEUKOCYTE ESTERASE ,URINE NEGATIVE (Neg); NITRITES, URINE NEGATIVE (Neg); OCCULT BLOOD,URINE NEGATIVE (Neg); PROTEIN,URINE NEGATIVE (Neg); UROBILINOGEN,URINE 0.2 E.U/dL (0.2-1.0)
[2020-04-05 20:32] LABS: UA COLLECTION TYPE NON-SPECIFIED
[2020-04-05 20:35] LABS: ALANINE AMINOTRANSFERASE 44 U/L (12-78); ALBUMIN 3.7 G/DL (3.4-5.0); ALBUMIN/GLOBULIN RATIO 0.9 (1.1-1.5); ALKALINE PHOSPHATASE 134 IU/L (46-116); ANION GAP 10 (8-16); ASPARTATE AMINO TRANSFERASE 50 U/L (10-37); BILIRUBIN,TOTAL 0.3 MG/DL (0.1-1.0); BLOOD UREA NITROGEN 15 MG/DL (7-18); CALCIUM 9.2 MG/DL (8.5-10.1); CHLORIDE 101 MMOL/L (99-107); CREATININE 0.79 MG/DL (0.60-1.10); ETHANOL 0.285 GM/DL (0.0-0.010); GLUCOSE 106 MG/DL (70-104); POTASSIUM 4.2 MMOL/L (3.5-5.1); SODIUM 137 MMOL/L (135-145); TOTAL CARBON DIOXIDE 25.7 MMOL/L (24-32); TOTAL PROTEIN 7.6 G/DL (6.4-8.2); eGFR > 90 ML/MIN
[2020-04-05 20:40] LABS: URINE AMPHETAMINE SCREEN NEGATIVE (Neg); URINE BARBITUATE SCREEN NEGATIVE (Neg); URINE BENZODIAZEPINES SCREEN NEGATIVE (Neg); URINE CANNABINOID SCREEN NEGATIVE (Neg); URINE COCAINE SCREEN NEGATIVE (Neg); URINE METHADONE SCREEN NEGATIVE (Neg); URINE OPIATE SCREEN POSITIVE (Neg); URINE PHENCYCLIDINE SCREEN NEGATIVE (Neg)
--- NOTE | 2020-04-05 21:19 | NUR ---
ABDI HILLMAN IN ROOM DISCUSSING NEED TO LEAVE CATHETER IN DISCUSSED PAIN MEDICINE P[ATIENT STILL VOICING DESIRE TO KILL ONE SELF
[2020-04-05] MEDS ORDERED: morphine 4 MG/ML inj SYRINge IV ONE (21:40)
[2020-04-05] MEDS ORDERED: vancomycin inj 2,000 MG in normal saline 500ml IV soln 500 ML IV ONE (22:00)
[2020-04-05] MEDS ORDERED: acetaminophen 325mg tablet PO PRN (22:25)
[2020-04-05] MEDS ORDERED: potassium Cl 20 mEq SR tablet PO PRN ×2 (22:25)
[2020-04-05] MEDS ORDERED: magnesium hydroxide 30ml (MOM) UD suspension PO PRN (22:25)
[2020-04-05] MEDS ORDERED: mag hydrox/Alum hydrox/simeth 30ml oral suspension PO PRN (22:25)
[2020-04-05] MEDS ORDERED: magnesium 4gm in 100ml NS 100 ML IV PRN (22:25)
[2020-04-05] MEDS ORDERED: potassium Cl 40MEQ/1/2NS 520ml 520 ML IV PRN ×2 (22:25)
[2020-04-05] MEDS ORDERED: morphine 2 MG/ML inj. syringe IV PRN ×3 (22:25→22:30)
[2020-04-05] MEDS ORDERED: magnesium 2GM in 50ml NS 50 ML IV PRN (22:25)
[2020-04-05 23:03] LABS: HEMOGLOBIN A1C 5.4 % (4.5-6.2)
[2020-04-05] MEDS: thiamine inj. 100 MG in normal saline 100ml IV soln 100 ML IV SCH (23:10)
[2020-04-06 00:40] VITALS: BP 153/85
[2020-04-06] MEDS: morphine 4 MG/ML inj SYRINge IV PRN ×6 (01:21→23:47)
--- NOTE | 2020-04-06 02:25 | NUR ---
NOTIFIED R/T NO RELIEF OF PAIN, STATES THAT SHE DISCUSSED THIS WITH THE PT AND HE DID NOT WANT NORCO. SHE INCREASED THE PAIN MED FROM 2MG TO 4MG IV, SHE IS NOT GOING TO ORDER DILAUDID. PT ADVISED TO KEEP LEGS ELEVATED ABOVE HEART LEVEL. HE CONTINUES TO ASK IF HE CAN DANGLE HIS LEGS.
[2020-04-06] MEDS ORDERED: haloperidol 5mg tablet PO PRN (04:55)
[2020-04-06] MEDS ORDERED: haloperidol lactate 5mg/ml inj IM PRN (04:55)
[2020-04-06] MEDS ORDERED: LORazepam 2 mg/ml vial IV PRN (04:55)
[2020-04-06] MEDS: ondansetron/PF 4mg/2ml inj IV PRN (05:20)
--- NOTE | 2020-04-06 06:30 | NUR ---
Patient in room NEDA 357. I have received report from JAM Madrid and had the opportunity to ask questions and assume patient care.
[2020-04-06 06:34] LABS: BASOPHILS # (AUTO) 0.1 X10'3 (0-0.2); BASOPHILS % (AUTO) 1.1 % (0-1); EOSINOPHILS # (AUTO) 0.4 X10'3 (0-0.9); EOSINOPHILS % (AUTO) 3.8 % (0-6); HEMATOCRIT 28.8 % (42.0-52.0); HEMOGLOBIN 10.1 g/dl (14.0-17.9); LYMPHOCYTES # (AUTO) 1.2 X10'3 (1.1-4.8); LYMPHOCYTES % (AUTO) 11.9 % (21-51); MEAN CORPUSCULAR HEMOGLOBIN 33.1 PG (27.0-31.0); MEAN CORPUSCULAR HGB CONC 35.1 g/dL (33.0-36.5); MEAN CORPUSCULAR VOLUME 94.2 FL (78-98); MEAN PLATELET VOLUME 7.6 FL (7.4-10.4); MONOCYTES # (AUTO) 0.9 X10'3 (0-0.9); MONOCYTES % (AUTO) 8.8 % (2-12); NEUTROPHILS # (AUTO) 7.2 X10'3 (1.8-7.7); NEUTROPHILS % (AUTO) 74.4 % (42-75); PLATELET COUNT 331 X10'3 (140-440); RED BLOOD COUNT 3.06 X10'6 (4.70-6.10); RED CELL DISTRIBUTION WIDTH 14.4 % (11.5-14.5); WHITE BLOOD COUNT 9.7 X10'3 (4.5-11.0)
--- NOTE | 2020-04-06 06:34 | NUR ---
REPORT GIVEN TO JAM TRENT.
[2020-04-06 07:02] LABS: ALANINE AMINOTRANSFERASE 41 U/L (12-78); ALBUMIN 3.3 G/DL (3.4-5.0); ALBUMIN/GLOBULIN RATIO 0.9 (1.1-1.5); ALKALINE PHOSPHATASE 112 IU/L (46-116); AMYLASE 48 U/L (25-115); ANION GAP 11 (8-16); ASPARTATE AMINO TRANSFERASE 41 U/L (10-37); BILIRUBIN,TOTAL 0.4 MG/DL (0.1-1.0); BLOOD UREA NITROGEN 11 MG/DL (7-18); CALCIUM 9.5 MG/DL (8.5-10.1); CHLORIDE 103 MMOL/L (99-107); CHOL/HDL RATIO 1.8 (0.00-4.99); CHOLESTEROL 194 MG/DL (0-200); CREATININE 0.58 MG/DL (0.60-1.10); GLUCOSE 113 MG/DL (70-104); HDL CHOLESTEROL 110 MG/DL (35-60); LDL CHOLESTEROL 73 MG/DL (50-100); LIPASE 67 U/L (73-393); MAGNESIUM 1.3 MG/DL (1.5-2.4); PHOSPHORUS 3.2 MG/DL (2.3-4.5); SODIUM 138 MMOL/L (135-145); TOTAL CARBON DIOXIDE 23.7 MMOL/L (24-32); TOTAL PROTEIN 6.8 G/DL (6.4-8.2); TRIGLYCERIDES 37 MG/DL (20-135); eGFR > 90 ML/MIN
[2020-04-06 07:04] VITALS: BP 129/70
[2020-04-06] MEDS: multivitamins, therapeutics tablet PO SCH (07:43)
[2020-04-06] MEDS: LORazepam 2 mg/ml vial IV PRN ×4 (07:43→22:11)
[2020-04-06] MEDS: enoxaparin 40mg/0.4ml syringe SUBCUT SCH (07:45)
[2020-04-06] MEDS: folic acid 1mg/0.2ml inj IV SCH (07:45)
[2020-04-06] MEDS: thiamine inj. 100 MG in normal saline 100ml IV soln 100 ML IV SCH (07:46)
[2020-04-06] MEDS: K and/or MAG REPLACEMENT MC SCH ×2 (08:00→19:23)
[2020-04-06] MEDS ORDERED: thiamine inj. 100 MG, MVI, adult No.4 with vit. K 10 ML in dextrose 5% water 500ml 500 ML IV SCH ×3 (08:00)
[2020-04-06] MEDS: vancomycin/NS 1 GM ADD-VANTAGE 250 ML X 1 DOSE IV SCH ×3 (09:56→23:34)
[2020-04-06] MEDS ORDERED: VANCOmycin 1250MG/NS 250ml Bag 250 ML IV SCH (11:00)
[2020-04-06] MEDS: magnesium Cl slow-release 64mg tablet PO PRN ×2 (11:23→19:31)
[2020-04-06 12:00] VITALS: BP 138/61
--- NOTE | 2020-04-06 12:45 | NUR ---
Patient has continually asked to have catheter removed. Addressed with patient that we need to wait for physician orders. Patient acknowledged.
[2020-04-06] MEDS ORDERED: APIX5TAB3 PO (13:52)
[2020-04-06] MEDS ORDERED: FURO20TA4 (13:55)
[2020-04-06] MEDS ORDERED: TIOT18CA3 INH (13:55)
[2020-04-06] MEDS ORDERED: CLON-369 (13:55)
[2020-04-06] MEDS ORDERED: PENI-88 PO (14:08)
[2020-04-06] MEDS ORDERED: GABA300C PO (14:08)
[2020-04-06] MEDS ORDERED: CARV12.545 PO (14:08)
[2020-04-06] MEDS ORDERED: AZEL137S4 BOTHNARES (14:08)
[2020-04-06] MEDS ORDERED: FURO40TA4 PO (14:08)
[2020-04-06] MEDS ORDERED: OLOP5DRO14 EACHEYE (14:08)
[2020-04-06] MEDS ORDERED: BUDE0.5A3 NEB (14:08)
[2020-04-06] MEDS ORDERED: ATRNS BOTHNARES (14:08)
[2020-04-06] MEDS ORDERED: CHOL378P PO (14:08)
[2020-04-06] MEDS ORDERED: [UNRECOGNIZED DRUG - CODE] PO (14:08)
[2020-04-06] MEDS ORDERED: DILT-36 PO (14:08)
--- NOTE | 2020-04-06 17:44 | NUR ---
Student documentation: I have reviewed and agree with all interventions, assessments performed and documented by LANE MCCARTNEY.
[2020-04-06 18:30] VITALS: BP 147/80
[2020-04-06] MEDS: lactobacillus rhamnosus 10,000 MMU CELLS/CAPSULE PO SCH (19:31)
--- NOTE | 2020-04-06 21:10 | NUR ---
Pt wants Reyes catheter out. I talked to Dr. Scott and she said OK, DC it. Started bladder training and will dc in early am.
[2020-04-06] MEDS: HYDROcodone/acetaminophen 10/325mg tab PO PRN (22:14)
[2020-04-07] VITALS: BP 113/76
--- NOTE | 2020-04-07 04:48 | NUR ---
JACOB CHAN'D PER MD ORDER AFTER BLADDER TRAINING.
--- NOTE | 2020-04-07 06:39 | NUR ---
Problems reprioritized. Patient report given, questions answered & plan of care reviewed with LINWOOD. Addendum: 04/07/20 at 0639 by Isacc Neal RN Amended: Links added.
[2020-04-07 07:00] VITALS: BP 115/62
--- NOTE | 2020-04-07 07:04 | NUR ---
Patient in room NEDA 357. I have received report from Bonifacio POLK and had the opportunity to ask questions and assume patient care.Sitter at bedside
[2020-04-07] MEDS ORDERED: VANCOMYCIN LEVEL IV ONE (07:30)
[2020-04-07] MEDS: K and/or MAG REPLACEMENT MC SCH ×2 (08:00→20:00)
[2020-04-07 08:05] LABS: BASOPHILS # (AUTO) 0.1 X10'3 (0-0.2); BASOPHILS % (AUTO) 1.6 % (0-1); EOSINOPHILS # (AUTO) 0.5 X10'3 (0-0.9); EOSINOPHILS % (AUTO) 6.7 % (0-6); HEMATOCRIT 29.3 % (42.0-52.0); HEMOGLOBIN 9.9 g/dl (14.0-17.9); LYMPHOCYTES # (AUTO) 1.7 X10'3 (1.1-4.8); LYMPHOCYTES % (AUTO) 23.1 % (21-51); MEAN CORPUSCULAR HEMOGLOBIN 32.5 PG (27.0-31.0); MEAN CORPUSCULAR HGB CONC 33.7 g/dL (33.0-36.5); MEAN CORPUSCULAR VOLUME 96.3 FL (78-98); MEAN PLATELET VOLUME 7.4 FL (7.4-10.4); MONOCYTES # (AUTO) 0.7 X10'3 (0-0.9); MONOCYTES % (AUTO) 10.1 % (2-12); NEUTROPHILS # (AUTO) 4.2 X10'3 (1.8-7.7); NEUTROPHILS % (AUTO) 58.5 % (42-75); PLATELET COUNT 260 X10'3 (140-440); RED BLOOD COUNT 3.05 X10'6 (4.70-6.10); RED CELL DISTRIBUTION WIDTH 14.6 % (11.5-14.5); WHITE BLOOD COUNT 7.2 X10'3 (4.5-11.0)
[2020-04-07 08:18] LABS: ALANINE AMINOTRANSFERASE 32 U/L (12-78); ALBUMIN 2.9 G/DL (3.4-5.0); ALBUMIN/GLOBULIN RATIO 0.9 (1.1-1.5); ALKALINE PHOSPHATASE 100 IU/L (46-116); AMYLASE 34 U/L (25-115); ANION GAP 7 (8-16); ASPARTATE AMINO TRANSFERASE 31 U/L (10-37); BILIRUBIN,TOTAL 0.5 MG/DL (0.1-1.0); BLOOD UREA NITROGEN 11 MG/DL (7-18); BUN/CREATININE RATIO 20.4 (5.4-32.0); CALCIUM 8.8 MG/DL (8.5-10.1); CHLORIDE 103 MMOL/L (99-107); CREATININE 0.54 MG/DL (0.60-1.10); GLUCOSE 109 MG/DL (70-104); LIPASE < 50 U/L (73-393); MAGNESIUM 1.6 MG/DL (1.5-2.4); PHOSPHORUS 4.2 MG/DL (2.3-4.5); POTASSIUM 4.1 MMOL/L (3.5-5.1); SODIUM 137 MMOL/L (135-145); TOTAL CARBON DIOXIDE 27.4 MMOL/L (24-32); TOTAL PROTEIN 6.2 G/DL (6.4-8.2); VANCOMYCIN,TROUGH 13.3 UG/ML (6.0-14.0); eGFR > 90 ML/MIN
[2020-04-07] MEDS: enoxaparin 40mg/0.4ml syringe SUBCUT SCH (09:21)
[2020-04-07] MEDS: lactobacillus rhamnosus 10,000 MMU CELLS/CAPSULE PO SCH ×2 (09:21→19:12)
[2020-04-07] MEDS: multivitamins, therapeutics tablet PO SCH (09:23)
[2020-04-07] MEDS: HYDROcodone/acetaminophen 10/325mg tab PO PRN ×4 (09:23→22:53)
[2020-04-07] MEDS: folic acid 1mg/0.2ml inj IV SCH (09:24)
[2020-04-07] MEDS: VANCOmycin 1250MG/NS 250ml Bag 250 ML IV SCH ×2 (09:32→16:44)
[2020-04-07 11:00] VITALS: BP 127/70
[2020-04-07] MEDS: LORazepam 2 mg/ml vial IV PRN ×3 (11:58→19:12)
[2020-04-07] MEDS: thiamine inj. 100 MG in normal saline 100ml IV soln 100 ML IV SCH (11:58)
--- NOTE | 2020-04-07 12:18 | NUR ---
PAGER ID: [phone] MESSAGE: Susan-Surg [phone] Re: Namrata 357B patient very concerned about his home medications especially Prozac, also can I get a PT eval and tx
[2020-04-07] MEDS ORDERED: HYDROCODONE PO PRN (15:15)
[2020-04-07] MEDS ORDERED: IBUPROFEN PO PRN (15:15)
[2020-04-07] MEDS ORDERED: diphenhydrAMINE 25mg capsule PO PRN (15:20)
[2020-04-07] MEDS: diltiazem CD 180mg cap (once-daily) PO SCH (16:33)
[2020-04-07] MEDS: tamsulosin 0.4mg capsule PO SCH (16:34)
[2020-04-07] MEDS: gemfibrozil 600mg tablet PO SCH (16:34)
[2020-04-07] MEDS: montelukast 10mg tablet PO SCH (16:34)
[2020-04-07] MEDS: lisinopril 10 MG tablet PO SCH (16:36)
--- NOTE | 2020-04-07 18:31 | NUR ---
Problems reprioritized. Patient report given, questions answered & plan of care reviewed with Danielle Dunbar RN.
--- NOTE | 2020-04-07 18:36 | NUR ---
Patient in room NEDA 357. I have received report from Susan RN and JAM Youngblood and had the opportunity to ask questions and assume patient care.
[2020-04-07 19:00] VITALS: BP 135/77
[2020-04-07] MEDS: furosemide 40mg tablet PO SCH (19:12)
[2020-04-07] MEDS: apixaban 5mg tablet PO SCH (19:12)
[2020-04-07] MEDS: pantoprazole 40mg Tablet.DR PO SCH (19:12)
[2020-04-07] MEDS: carVEDilol 12.5mg tablet PO SCH (19:12)
[2020-04-07] MEDS: ipratropium 0.5 MG/2.5ML nebule IH SCH (20:22)
[2020-04-07] MEDS: FLUoxetine 10mg capsule PO SCH (20:59)
[2020-04-07] MEDS: ipratropium 0.06% nasal spray 15ml NS SCH (21:00)
[2020-04-07] MEDS ORDERED: tamsulosin 0.4mg capsule PO SCH (21:00)
[2020-04-08] VITALS: BP 116/64
[2020-04-08] MEDS: VANCOmycin 1250MG/NS 250ml Bag 250 ML IV SCH ×2 (00:39→11:24)
[2020-04-08] MEDS: LORazepam 2 mg/ml vial IV PRN (02:25)
[2020-04-08] MEDS: ipratropium 0.5 MG/2.5ML nebule IH SCH ×3 (03:05→19:17)
[2020-04-08] MEDS: HYDROcodone/acetaminophen 10/325mg tab PO PRN ×3 (04:22→19:09)
[2020-04-08] MEDS ORDERED: LORazepam 2 mg/ml vial IV PRN (04:55)
--- NOTE | 2020-04-08 06:28 | NUR ---
Problems reprioritized. Patient report given, questions answered & plan of care reviewed with JAM Wood.
[2020-04-08 07:00] VITALS: BP 119/64
[2020-04-08] MEDS ORDERED: VANCOMYCIN LEVEL IV ONE (07:30)
[2020-04-08] MEDS: lactobacillus rhamnosus 10,000 MMU CELLS/CAPSULE PO SCH ×2 (07:43→20:56)
[2020-04-08] MEDS: diltiazem CD 180mg cap (once-daily) PO SCH (07:43)
[2020-04-08] MEDS: carVEDilol 12.5mg tablet PO SCH ×2 (07:43→21:00)
[2020-04-08] MEDS: apixaban 5mg tablet PO SCH ×2 (07:44→20:57)
[2020-04-08] MEDS: tamsulosin 0.4mg capsule PO SCH (07:44)
[2020-04-08] MEDS: pantoprazole 40mg Tablet.DR PO SCH ×2 (07:46→21:00)
[2020-04-08] MEDS: montelukast 10mg tablet PO SCH (07:46)
[2020-04-08] MEDS: FLUoxetine 10mg capsule PO SCH (07:46)
[2020-04-08] MEDS: furosemide 40mg tablet PO SCH ×2 (07:46→20:00)
[2020-04-08] MEDS: multivitamins, therapeutics tablet PO SCH (07:47)
[2020-04-08] MEDS: lisinopril 10 MG tablet PO SCH (07:47)
[2020-04-08] MEDS: naphazoline/pheniramine eye 1 DROP BOTTLE EACHEYE PRN ×2 (07:48→16:28)
[2020-04-08] MEDS: gemfibrozil 600mg tablet PO SCH (07:48)
[2020-04-08] MEDS: ipratropium 0.06% nasal spray 15ml NS SCH ×3 (07:48→20:58)
[2020-04-08] MEDS: thiamine 100mg tablet PO SCH (07:50)
[2020-04-08] MEDS: folic acid 1mg tablet PO SCH (07:50)
[2020-04-08] MEDS: K and/or MAG REPLACEMENT MC SCH ×2 (08:00→20:00)
[2020-04-08 08:19] LABS: BASOPHILS # (AUTO) 0.1 X10'3 (0-0.2); BASOPHILS % (AUTO) 1.2 % (0-1); EOSINOPHILS # (AUTO) 0.7 X10'3 (0-0.9); EOSINOPHILS % (AUTO) 8.7 % (0-6); HEMATOCRIT 29.6 % (42.0-52.0); LYMPHOCYTES # (AUTO) 1.7 X10'3 (1.1-4.8); LYMPHOCYTES % (AUTO) 20.9 % (21-51); MEAN CORPUSCULAR HEMOGLOBIN 32.3 PG (27.0-31.0); MEAN CORPUSCULAR HGB CONC 33.8 g/dL (33.0-36.5); MEAN CORPUSCULAR VOLUME 95.5 FL (78-98); MEAN PLATELET VOLUME 7.5 FL (7.4-10.4); MONOCYTES # (AUTO) 0.7 X10'3 (0-0.9); MONOCYTES % (AUTO) 8.4 % (2-12); NEUTROPHILS # (AUTO) 4.9 X10'3 (1.8-7.7); NEUTROPHILS % (AUTO) 60.8 % (42-75); PLATELET COUNT 249 X10'3 (140-440); RED CELL DISTRIBUTION WIDTH 14.5 % (11.5-14.5); WHITE BLOOD COUNT 8.1 X10'3 (4.5-11.0)
--- NOTE | 2020-04-08 08:30 | NUR ---
Per morning report, Last BM 04/07/2020 no BM as of assessment today Addendum: 04/08/20 at 0831 by Barrington DAVALOS Amended: Links added.
[2020-04-08 08:41] LABS: ALANINE AMINOTRANSFERASE 36 U/L (12-78); ALBUMIN 3.1 G/DL (3.4-5.0); ALBUMIN/GLOBULIN RATIO 0.9 (1.1-1.5); ALKALINE PHOSPHATASE 104 IU/L (46-116); AMYLASE 32 U/L (25-115); ANION GAP 8 (8-16); ASPARTATE AMINO TRANSFERASE 33 U/L (10-37); BILIRUBIN,TOTAL 0.5 MG/DL (0.1-1.0); BLOOD UREA NITROGEN 11 MG/DL (7-18); BUN/CREATININE RATIO 16.7 (5.4-32.0); CHLORIDE 101 MMOL/L (99-107); CREATININE 0.66 MG/DL (0.60-1.10); GLUCOSE 118 MG/DL (70-104); LIPASE < 50 U/L (73-393); MAGNESIUM 1.7 MG/DL (1.5-2.4); PHOSPHORUS 4.4 MG/DL (2.3-4.5); SODIUM 136 MMOL/L (135-145); TOTAL CARBON DIOXIDE 26.7 MMOL/L (24-32); TOTAL PROTEIN 6.7 G/DL (6.4-8.2); VANCOMYCIN,TROUGH 18.2 UG/ML (6.0-14.0); eGFR > 90 ML/MIN
[2020-04-08] MEDS: budesonide 0.5mg/2ml UD nebule IH SCH ×2 (09:23→14:40)
[2020-04-08 11:00] VITALS: BP 109/65
[2020-04-08] MEDS: chloestyramine/aspartame 4gm packet PO SCH (11:00)
[2020-04-08] MEDS: LORazepam 1 MG tablet PO PRN ×3 (11:25→20:56)
--- NOTE | 2020-04-08 12:10 | NUR ---
Patient in room NEDA 357. I have received report from Barrington Wolff [facility] adn student and had the opportunity to ask questions and assume patient care.
--- NOTE | 2020-04-08 12:54 | NUR ---
Dr Scott rounded on pt and stated pt to have a psych consult before modifying sitter order.
[2020-04-08 13:02] VITALS: BP 108/57
--- NOTE | 2020-04-08 18:45 | NUR ---
Problems reprioritized. Patient report given, questions answered & plan of care reviewed with JAM GONZALEZ.
--- NOTE | 2020-04-08 18:50 | NUR ---
Patient in room NEDA 357. I have received report from JAM Wood and had the opportunity to ask questions and assume patient care.
--- NOTE | 2020-04-08 19:49 | NUR ---
Patient in room NEDA 357A. I have received report from JAM GONZALEZ and had the opportunity to ask questions and assume patient care.
[2020-04-08] MEDS: gabapentin 100mg capsule PO SCH (21:00)
[2020-04-08] MEDS ORDERED: FLUoxetine 20mg capsule PO SCH (21:00)
[2020-04-08] MEDS: morphine 2 MG/ML inj. syringe IV PRN (21:57)
[2020-04-08] MEDS: ondansetron/PF 4mg/2ml inj IV PRN (22:02)
[2020-04-09] VITALS: BP 128/83
[2020-04-09] MEDS: ceFAZolin/D5W- 1GM premix 50 ML IV SCH ×3 (00:07→16:00)
[2020-04-09] MEDS: HYDROcodone/acetaminophen 10/325mg tab PO PRN ×3 (00:29→14:22)
[2020-04-09] MEDS: LORazepam 1 MG tablet PO PRN ×2 (01:52→10:00)
[2020-04-09] MEDS: morphine 2 MG/ML inj. syringe IV PRN (05:01)
--- NOTE | 2020-04-09 06:30 | NUR ---
Problems reprioritized. Patient report given, questions answered & plan of care reviewed with JAM Mills.
--- NOTE | 2020-04-09 06:35 | NUR ---
Patient in room NEDA 357. I have received report from Danielle Antony RN and had the opportunity to ask questions and assume patient care.
--- NOTE | 2020-04-09 06:43 | NUR ---
Patient in room NEDA 357. I have received report from Danielle Dunbar RN and had the opportunity to ask questions and assume patient care.
[2020-04-09 06:54] LABS: BASOPHILS # (AUTO) 0.1 X10'3 (0-0.2); BASOPHILS % (AUTO) 0.8 % (0-1); EOSINOPHILS # (AUTO) 0.7 X10'3 (0-0.9); EOSINOPHILS % (AUTO) 8.4 % (0-6); HEMATOCRIT 28.8 % (42.0-52.0); HEMOGLOBIN 9.9 g/dl (14.0-17.9); LYMPHOCYTES # (AUTO) 2.3 X10'3 (1.1-4.8); LYMPHOCYTES % (AUTO) 25.7 % (21-51); MEAN CORPUSCULAR HEMOGLOBIN 32.7 PG (27.0-31.0); MEAN CORPUSCULAR HGB CONC 34.3 g/dL (33.0-36.5); MEAN CORPUSCULAR VOLUME 95.4 FL (78-98); MEAN PLATELET VOLUME 7.8 FL (7.4-10.4); MONOCYTES # (AUTO) 0.9 X10'3 (0-0.9); MONOCYTES % (AUTO) 10.3 % (2-12); NEUTROPHILS # (AUTO) 4.8 X10'3 (1.8-7.7); NEUTROPHILS % (AUTO) 54.8 % (42-75); PLATELET COUNT 232 X10'3 (140-440); RED BLOOD COUNT 3.02 X10'6 (4.70-6.10); RED CELL DISTRIBUTION WIDTH 14.3 % (11.5-14.5); WHITE BLOOD COUNT 8.8 X10'3 (4.5-11.0)
[2020-04-09 07:00] VITALS: BP 122/55
[2020-04-09] MEDS: ipratropium 0.5 MG/2.5ML nebule IH SCH (07:22)
[2020-04-09] MEDS: budesonide 0.5mg/2ml UD nebule IH SCH (07:23)
[2020-04-09] MEDS: gemfibrozil 600mg tablet PO SCH (07:42)
[2020-04-09] MEDS: lactobacillus rhamnosus 10,000 MMU CELLS/CAPSULE PO SCH (07:42)
[2020-04-09] MEDS: pantoprazole 40mg Tablet.DR PO SCH (07:42)
[2020-04-09] MEDS: thiamine 100mg tablet PO SCH (07:43)
[2020-04-09] MEDS: folic acid 1mg tablet PO SCH (07:43)
[2020-04-09] MEDS: carVEDilol 12.5mg tablet PO SCH (07:43)
[2020-04-09] MEDS: lisinopril 10 MG tablet PO SCH (07:43)
[2020-04-09] MEDS: apixaban 5mg tablet PO SCH (07:44)
[2020-04-09] MEDS: multivitamins, therapeutics tablet PO SCH (07:44)
[2020-04-09] MEDS: montelukast 10mg tablet PO SCH (07:44)
[2020-04-09] MEDS: tamsulosin 0.4mg capsule PO SCH (07:44)
[2020-04-09] MEDS: diltiazem CD 180mg cap (once-daily) PO SCH (07:44)
[2020-04-09 07:49] LABS: ALANINE AMINOTRANSFERASE 35 U/L (12-78); ALBUMIN/GLOBULIN RATIO 0.9 (1.1-1.5); ALKALINE PHOSPHATASE 103 IU/L (46-116); AMYLASE 32 U/L (25-115); ANION GAP 9 (8-16); ASPARTATE AMINO TRANSFERASE 32 U/L (10-37); BILIRUBIN,TOTAL 0.4 MG/DL (0.1-1.0); BLOOD UREA NITROGEN 10 MG/DL (7-18); BUN/CREATININE RATIO 15.9 (5.4-32.0); CALCIUM 8.9 MG/DL (8.5-10.1); CHLORIDE 100 MMOL/L (99-107); CREATININE 0.63 MG/DL (0.60-1.10); GLUCOSE 112 MG/DL (70-104); LIPASE < 50 U/L (73-393); MAGNESIUM 1.7 MG/DL (1.5-2.4); PHOSPHORUS 3.9 MG/DL (2.3-4.5); POTASSIUM 4.1 MMOL/L (3.5-5.1); SODIUM 135 MMOL/L (135-145); TOTAL PROTEIN 6.5 G/DL (6.4-8.2); eGFR > 90 ML/MIN
[2020-04-09] MEDS: gabapentin 100mg capsule PO SCH ×2 (08:00→13:00)
[2020-04-09] MEDS: K and/or MAG REPLACEMENT MC SCH (08:00)
[2020-04-09] MEDS: furosemide 40mg tablet PO SCH (08:00)
[2020-04-09] MEDS: naphazoline/pheniramine eye 1 DROP BOTTLE EACHEYE PRN ×2 (08:02→14:15)
[2020-04-09] MEDS: ipratropium 0.06% nasal spray 15ml NS SCH ×2 (08:02→14:13)
[2020-04-09] MEDS: chloestyramine/aspartame 4gm packet PO SCH (11:00)
--- NOTE | 2020-04-09 11:26 | NUR ---
Initial: Pt admit with BLE cellulitis and SI, social media developer following. Pt on a 2 g Na restricted diet documented with 100% PO intake throughout LOS. D/w dietary to send double protein TID for satiety. Pt receiving routine Thiamine, Folic acid, and MVI for EtOH hx. LBM 04/07 after receiving first dose of PRN bowel care 04/07. Will continue to follow and monitor need for further nutrition intervention. Recommendations: 1) Advance to regular diet as medically indicated 2) Double eggs WB, double meat BIDLD 3) Continue routine Thiamine, Folic acid, and MVI for EtOH hx 4) Routine bowel care 5) Scaled weights per rx Addendum: 04/09/20 at [address] Amended: Links added.
[2020-04-09 12:38] VITALS: BP 100/58
[2020-04-09] MEDS ORDERED: FLUO-167 PO (14:30)
[2020-04-09] MEDS ORDERED: DOXY-243 PO (14:31)
--- NOTE | 2020-04-09 16:25 | NUR ---
patient up with PT see note. Requiring q2hrly pain control. seen by Dr daniel, is for DC with follow up with Mental health patient given information for follow up with Dr leatha Richardson mental health and outpatient wound clinic . patient discharged home via private car with family member in stable condition. 1615hrs.
[2020-04-10] MEDS ORDERED: LORazepam 2 mg/ml vial IV PRN (04:55)
[2020-04-10] MEDS ORDERED: LORazepam 1 MG tablet PO PRN (04:55)
[2020-04-10] MEDS ORDERED: terbinafine 250mg tablet PO SCH (08:00)
== END 2020-04-09 16:05 | disposition home health service (06) | DRG 603 ==
LOC: ER 17:49 → ED HOLD 22:25 → SUR 3N 04-06 00:46
PROVIDERS: ADMIT Internal Medicine; ATTEND Internal Medicine
DX: L03.116 Cellulitis of left lower limb (principal); L03.115 Cellulitis of right lower limb; E66.01 Morbid (severe) obesity due to excess calories; Z68.35 Body mass index [BMI] 35.0-35.9, adult; Z88.8 Allergy status to other drugs, medicaments and biological substances; I10 Essential (primary) hypertension; E78.5 Hyperlipidemia, unspecified; J44.9 Chronic obstructive pulmonary disease, unspecified; G47.30 Sleep apnea, unspecified; I73.9 Peripheral vascular disease, unspecified; E78.00 Pure hypercholesterolemia, unspecified; F41.9 Anxiety disorder, unspecified; Z87.891 Personal history of nicotine dependence; R33.9 Retention of urine, unspecified; D64.9 Anemia, unspecified; D72.829 Elevated white blood cell count, unspecified; F32.9 Major depressive disorder, single episode, unspecified; B35.1 Tinea unguium; I87.2 Venous insufficiency (chronic) (peripheral); F10.20 Alcohol dependence, uncomplicated; Y90.9 Presence of alcohol in blood, level not specified; G89.4 Chronic pain syndrome; Z20.822 Contact with and (suspected) exposure to COVID-19
CPT/HCPCS: 36415; 80053; 80061; 80202; 80305; 80320; 81003; 82150; 82948; 83036; 83605; 83690; 83735; 83880; 84100; 84145; 84443; 85007; 85025; 85610; 87040; 87081; 87426; 93306; 93308; 94640; 94760; 96374; 97110; 97161; 97530; 97535; 99285; G0378; J0690; J1650; J2060; J2270; J2405; J3370; J3411; J3490; J7040; J7626; Q0163

== ENCOUNTER 2020-04-13 10:47 | Emergency (ER) | payer BC ==
[~2020-04-13] VITALS: Ht 188 cm; Wt 100.0 kg
[~2020-04-13 10:47] MED LIST changes: +APIX5TAB3 PO; +ATRNS BOTHNARES; +AZEL137S4 BOTHNARES; -BENZ1LOZ30 MM; +BUDE0.5A3 NEB; +CARV12.545 PO; +CHOL378P PO; -CLON-527 PO; +DILT-36 PO; +DOXY-243 PO; +FLUO-167 PO; -FLUO20CA39 PO; +FURO40TA4 PO; +GABA300C PO; -HYDR-4353 PO; -HYDR28CR14 TP; -LACT1CAP26 PO; -LIPA1CAP18 PO; -MOME17SP BOTHNARES; -MULT-1085 PO; -MYC15CR TP; +OLOP5DRO14 EACHEYE; -ONDA4TAB12 PO; -PHEN-893; -SPIR25TA5 PO; -THIA50TA10 PO; +TIOT18CA3 INH; -WOOL454C TP; +[UNRECOGNIZED DRUG - CODE] PO
[2020-04-13] MEDS ORDERED: normal saline 1000ML IV soln IVB ONE (12:20)
[2020-04-13] MEDS ORDERED: magnesium citrate 296ml oral solution PO ONE (12:20)
[2020-04-13] MEDS ORDERED: CefTRIAXone/D5W-Rocephin 1gm 50 ML IV ONE (12:25)
[2020-04-13 13:17] LABS: CLARITY,URINE CLEAR (Clear); COLOR,URINE YELLOW (Yellow); GLUCOSE, URINE NEGATIVE (Neg); KETONES,URINE NEGATIVE (Neg); LEUKOCYTE ESTERASE ,URINE NEGATIVE (Neg); NITRITES, URINE NEGATIVE (Neg); OCCULT BLOOD,URINE TRACE-INTACT (Neg); PROTEIN,URINE NEGATIVE (Neg); UA COLLECTION TYPE FOLEY CATH; UROBILINOGEN,URINE 0.2 E.U/dL (0.2-1.0)
[2020-04-13 13:22] LABS: BASOPHILS # (AUTO) 0.2 X10'3 (0-0.2); BASOPHILS % (AUTO) 1.1 % (0-1); EOSINOPHILS # (AUTO) 0.2 X10'3 (0-0.9); EOSINOPHILS % (AUTO) 1.5 % (0-6); HEMATOCRIT 31.2 % (42.0-52.0); HEMOGLOBIN 10.4 g/dl (14.0-17.9); LYMPHOCYTES # (AUTO) 2.8 X10'3 (1.1-4.8); LYMPHOCYTES % (AUTO) 18.6 % (21-51); MEAN CORPUSCULAR HEMOGLOBIN 31.9 PG (27.0-31.0); MEAN CORPUSCULAR HGB CONC 33.4 g/dL (33.0-36.5); MEAN CORPUSCULAR VOLUME 95.4 FL (78-98); MEAN PLATELET VOLUME 7.3 FL (7.4-10.4); MONOCYTES # (AUTO) 1.8 X10'3 (0-0.9); NEUTROPHILS # (AUTO) 10.1 X10'3 (1.8-7.7); NEUTROPHILS % (AUTO) 66.8 % (42-75); PLATELET COUNT 296 X10'3 (140-440); RED BLOOD COUNT 3.27 X10'6 (4.70-6.10); RED CELL DISTRIBUTION WIDTH 14.1 % (11.5-14.5); WHITE BLOOD COUNT 15.1 X10'3 (4.5-11.0)
[2020-04-13 13:30] LABS: MUCUS STRANDS FEW /LPF (Neg); SQUAMOUS EPITHELIAL CELL,UR NONE SEEN /LPF (FEW)
[2020-04-13 13:30] LABS: PARTIAL THROMBOPLASTIN TIME 27 SECONDS (22-32)
[2020-04-13 13:31] LABS: BACTERIA,URINE FEW /HPF (Neg); RBC,URINE 0-2 /HPF (0-2); WBC,URINE 0-4 /HPF (0-4)
[2020-04-13 13:33] LABS: ALANINE AMINOTRANSFERASE 32 U/L (12-78); ALBUMIN 3.6 G/DL (3.4-5.0); ALBUMIN/GLOBULIN RATIO 0.9 (1.1-1.5); ALKALINE PHOSPHATASE 111 IU/L (46-116); ANION GAP 8 (8-16); ASPARTATE AMINO TRANSFERASE 38 U/L (10-37); BILIRUBIN,TOTAL 0.3 MG/DL (0.1-1.0); BLOOD UREA NITROGEN 8 MG/DL (7-18); BUN/CREATININE RATIO 14.8 (5.4-32.0); CALCIUM 9.6 MG/DL (8.5-10.1); CHLORIDE 98 MMOL/L (99-107); CREATININE 0.54 MG/DL (0.60-1.10); GLUCOSE 111 MG/DL (70-104); POTASSIUM 3.7 MMOL/L (3.5-5.1); SODIUM 134 MMOL/L (135-145); TOTAL CARBON DIOXIDE 27.8 MMOL/L (24-32); TOTAL PROTEIN 7.5 G/DL (6.4-8.2); eGFR > 90 ML/MIN
[2020-04-13] MEDS ORDERED: POLY17PO10 PO (13:59)
[2020-04-13] MEDS ORDERED: CEPH-585 PO (13:59)
[2020-04-13 14:42] VITALS: BP 138/76
--- NOTE | 2020-04-13 17:29 | NUR ---
pt leena called and spoke to her at [phone] as per pt unable to urinate since pt got d/c .pt stated that he doesnot feel that he is full but has sensation in penis that he has go ,instructed to drink liquid and then try if he is unable to urinate at all and has lower abd pain then come back to er. verbalized understanding.
== END 2020-04-13 14:46 | disposition home or self-care (01) ==
LOC: ER 10:48
DX: K59.00 Constipation, unspecified (principal); R30.0 Dysuria; F10.129 Alcohol abuse with intoxication, unspecified; L03.116 Cellulitis of left lower limb; L03.115 Cellulitis of right lower limb; E78.00 Pure hypercholesterolemia, unspecified; I10 Essential (primary) hypertension; J44.9 Chronic obstructive pulmonary disease, unspecified; G47.39 Other sleep apnea; Z72.89 Other problems related to lifestyle; Z88.7 Allergy status to serum and vaccine; Z79.2 Long term (current) use of antibiotics; Z79.899 Other long term (current) drug therapy; Y90.8 Blood alcohol level of 240 mg/100 ml or more
CPT/HCPCS: 36415; 51702; 71045; 80053; 80320; 81001; 85025; 85610; 85730; 96365; 99284; J0696; J7030

== ENCOUNTER 2020-07-14 20:38 | Emergency (ER) | payer BC ==
[~2020-07-14] VITALS: Ht 188 cm; Wt 115.7 kg
[~2020-07-14 20:38] MED LIST changes: +CEPH-585 PO; -DOXY-243 PO
[2020-07-14 21:28] LABS: HEMOGLOBIN 10.9 g/dl (14.0-17.9); MEAN PLATELET VOLUME 7.6 FL (7.4-10.4); RED BLOOD COUNT 3.97 X10'6 (4.70-6.10)
[2020-07-14 21:30] LABS: BASOPHILS # (AUTO) 0.1 X10'3 (0-0.2); BASOPHILS % (AUTO) 0.7 % (0-1); EOSINOPHILS # (AUTO) 0.2 X10'3 (0-0.9); EOSINOPHILS % (AUTO) 1.3 % (0-6); HEMATOCRIT 32.9 % (42.0-52.0); LYMPHOCYTES # (AUTO) 2.5 X10'3 (1.1-4.8); LYMPHOCYTES % (AUTO) 20.8 % (21-51); MEAN CORPUSCULAR HEMOGLOBIN 27.4 PG (27.0-31.0); MEAN CORPUSCULAR HGB CONC 33.1 g/dL (33.0-36.5); MEAN CORPUSCULAR VOLUME 82.9 FL (78-98); NEUTROPHILS # (AUTO) 8.3 X10'3 (1.8-7.7); NEUTROPHILS % (AUTO) 69.2 % (42-75); PLATELET COUNT 331 X10'3 (140-440); RED CELL DISTRIBUTION WIDTH 17.9 % (11.5-14.5)
[2020-07-14 21:35] LABS: ALANINE AMINOTRANSFERASE 43 U/L (12-78); ALBUMIN 3.6 G/DL (3.4-5.0); ALKALINE PHOSPHATASE 107 IU/L (46-116); ANION GAP 11 (8-16); ASPARTATE AMINO TRANSFERASE 26 U/L (10-37); BILIRUBIN,TOTAL 0.3 MG/DL (0.1-1.0); BLOOD UREA NITROGEN 15 MG/DL (7-18); CHLORIDE 103 MMOL/L (99-107); CREATININE 1.07 MG/DL (0.60-1.10); GLUCOSE 124 MG/DL (70-104); POTASSIUM 3.7 MMOL/L (3.5-5.1); SODIUM 138 MMOL/L (135-145); TOTAL CARBON DIOXIDE 24.3 MMOL/L (24-32); TOTAL PROTEIN 7.1 G/DL (6.4-8.2); eGFR 70 ML/MIN
[2020-07-14 21:39] LABS: TROPONIN I < 0.04 NG/ML (0.0-0.05)
[2020-07-14 23:08] LABS: URINE AMPHETAMINE SCREEN NEGATIVE (Neg); URINE BARBITUATE SCREEN NEGATIVE (Neg); URINE BENZODIAZEPINES SCREEN POSITIVE (Neg); URINE CANNABINOID SCREEN NEGATIVE (Neg); URINE COCAINE SCREEN NEGATIVE (Neg); URINE METHADONE SCREEN NEGATIVE (Neg); URINE OPIATE SCREEN POSITIVE (Neg); URINE PHENCYCLIDINE SCREEN NEGATIVE (Neg)
[2020-07-14 23:26] LABS: ETHANOL < 0.010 GM/DL (0.0-0.010)
[2020-07-14] MEDS ORDERED: ALPRAZolam 0.5mg tablet PO ONE (23:45)
[2020-07-15] MEDS: normal saline 1000ML IV soln IVB ONE ×2 (00:22→00:23)
--- NOTE | 2020-07-15 00:25 | NUR ---
pt refused iv, Md Mcallister notified and no iv needed at this time.
[2020-07-15 00:29] VITALS: BP 114/53
== END 2020-07-15 00:33 | disposition home or self-care (01) ==
LOC: ER 20:39
DX: R53.81 Other malaise (principal); R42 Dizziness and giddiness; R11.0 Nausea; R53.1 Weakness; I48.91 Unspecified atrial fibrillation; I11.0 Hypertensive heart disease with heart failure; I50.9 Heart failure, unspecified; E78.00 Pure hypercholesterolemia, unspecified; J44.9 Chronic obstructive pulmonary disease, unspecified; F41.9 Anxiety disorder, unspecified; Z72.89 Other problems related to lifestyle; Z88.7 Allergy status to serum and vaccine; Z79.2 Long term (current) use of antibiotics; Z79.899 Other long term (current) drug therapy
CPT/HCPCS: 36415; 71045; 80053; 80305; 80320; 82140; 82948; 83880; 84484; 85025; 93005; 99285; J7030

== ENCOUNTER 2020-08-08 13:05 | Emergency (ER) | payer MEDICARE, BC ==
[~2020-08-08] VITALS: Ht 188 cm; Wt 118.2 kg
[2020-08-08 14:58] LABS: ALBUMIN 3.3 G/DL (3.4-5.0); ANION GAP 4 (8-16); BLOOD UREA NITROGEN 17 MG/DL (7-18); BUN/CREATININE RATIO 18.9 (5.4-32.0); CALCIUM 8.8 MG/DL (8.5-10.1); CHLORIDE 105 MMOL/L (99-107); GLUCOSE 97 MG/DL (70-104); POTASSIUM 4.4 MMOL/L (3.5-5.1); SODIUM 138 MMOL/L (135-145); TOTAL CARBON DIOXIDE 28.7 MMOL/L (24-32); eGFR 85 ML/MIN
[2020-08-08 15:01] LABS: BASOPHILS # (AUTO) 0.1 X10'3 (0-0.2); EOSINOPHILS # (AUTO) 0.4 X10'3 (0-0.9); EOSINOPHILS % (AUTO) 3.3 % (0-6); HEMATOCRIT 36.4 % (42.0-52.0); HEMOGLOBIN 11.8 g/dl (14.0-17.9); LYMPHOCYTES # (AUTO) 2.8 X10'3 (1.1-4.8); LYMPHOCYTES % (AUTO) 22.3 % (21-51); MEAN CORPUSCULAR HEMOGLOBIN 27.2 PG (27.0-31.0); MEAN CORPUSCULAR HGB CONC 32.4 g/dL (33.0-36.5); MEAN CORPUSCULAR VOLUME 83.8 FL (78-98); MEAN PLATELET VOLUME 7.7 FL (7.4-10.4); MONOCYTES # (AUTO) 1.2 X10'3 (0-0.9); MONOCYTES % (AUTO) 9.4 % (2-12); NEUTROPHILS # (AUTO) 8.1 X10'3 (1.8-7.7); PLATELET COUNT 303 X10'3 (140-440); RED BLOOD COUNT 4.34 X10'6 (4.70-6.10); RED CELL DISTRIBUTION WIDTH 18.8 % (11.5-14.5); WHITE BLOOD COUNT 12.7 X10'3 (4.5-11.0)
[2020-08-08] MEDS ORDERED: vancomycin/NS 1 GM ADD-VANTAGE 250 ML IV ONE (15:10)
[2020-08-08] MEDS ORDERED: CefTRIAXone 2gm/D5W 50ml BAG 50 ML IV ONE (15:10)
[2020-08-08 15:27] LABS: ACANTHOCYTES FEW; ANISOCYTOSIS 2+; ELLIPTOCYTES FEW; PLATELET ESTIMATE NORMAL
[2020-08-08] MEDS ORDERED: HYDROcodone/acetaminophen 10/325mg tab PO ONE (15:40)
[2020-08-08] MEDS ORDERED: ondansetron 4mg rapidly disintigrating tab PO ONE (15:40)
[2020-08-08 15:42] VITALS: BP 136/84
[2020-08-08] MEDS ORDERED: SULF1TAB45 PO (16:31)
== END 2020-08-08 18:39 | disposition home or self-care (01) ==
LOC: ER 13:06
DX: L97.528 Non-pressure chronic ulcer of other part of left foot with other specified severity (principal); L03.116 Cellulitis of left lower limb; L03.115 Cellulitis of right lower limb; I48.91 Unspecified atrial fibrillation; I11.0 Hypertensive heart disease with heart failure; I50.9 Heart failure, unspecified; E78.00 Pure hypercholesterolemia, unspecified; J44.9 Chronic obstructive pulmonary disease, unspecified; F41.9 Anxiety disorder, unspecified; Z72.89 Other problems related to lifestyle; Z88.7 Allergy status to serum and vaccine; Z79.2 Long term (current) use of antibiotics; Z79.899 Other long term (current) drug therapy
CPT/HCPCS: 36415; 73630; 80048; 83605; 84145; 85008; 85025; 87040; 96365; 96366; 96367; 99284; J0696; J3370

== ENCOUNTER 2020-08-10 08:24 | Emergency (ER) | payer BC ==
[~2020-08-10] VITALS: Ht 188 cm; Wt 122.0 kg
[~2020-08-10 08:24] MED LIST changes: +SULF1TAB45 PO
[2020-08-10 08:37] VITALS: BP 118/69
[2020-08-10] MEDS ORDERED: ondansetron 4mg rapidly disintigrating tab PO ONE (10:05)
[2020-08-10] MEDS ORDERED: HYDROcodone/acetaminophen 10/325mg tab PO ONE (10:05)
== END 2020-08-10 10:30 | disposition home or self-care (01) ==
LOC: ER 08:24
DX: L97.529 Non-pressure chronic ulcer of other part of left foot with unspecified severity (principal); R60.0 Localized edema; I48.91 Unspecified atrial fibrillation; I50.9 Heart failure, unspecified; I11.0 Hypertensive heart disease with heart failure; E78.00 Pure hypercholesterolemia, unspecified; G47.39 Other sleep apnea; J44.9 Chronic obstructive pulmonary disease, unspecified; Z88.7 Allergy status to serum and vaccine; Z79.2 Long term (current) use of antibiotics; Z79.899 Other long term (current) drug therapy
CPT/HCPCS: 99283

== ENCOUNTER 2020-09-11 14:05 | Emergency (ER) | payer MEDICARE, BC ==
[~2020-09-11] VITALS: Ht 188 cm; Wt 109.1 kg
[~2020-09-11 14:05] MED LIST changes: -SULF1TAB45 PO
[2020-09-11 16:33] LABS: BASOPHILS # (AUTO) 0.1 X10'3 (0-0.2); BASOPHILS % (AUTO) 0.8 % (0-1); EOSINOPHILS # (AUTO) 0.4 X10'3 (0-0.9); EOSINOPHILS % (AUTO) 5.3 % (0-6); HEMOGLOBIN 12.3 g/dl (14.0-17.9); LYMPHOCYTES # (AUTO) 2.3 X10'3 (1.1-4.8); LYMPHOCYTES % (AUTO) 28.7 % (21-51); MEAN CORPUSCULAR HEMOGLOBIN 27.5 PG (27.0-31.0); MEAN CORPUSCULAR HGB CONC 33.4 g/dL (33.0-36.5); MEAN CORPUSCULAR VOLUME 82.5 FL (78-98); MEAN PLATELET VOLUME 7.8 FL (7.4-10.4); MONOCYTES # (AUTO) 0.9 X10'3 (0-0.9); MONOCYTES % (AUTO) 11.6 % (2-12); NEUTROPHILS # (AUTO) 4.3 X10'3 (1.8-7.7); NEUTROPHILS % (AUTO) 53.6 % (42-75); PLATELET COUNT 263 X10'3 (140-440); RED BLOOD COUNT 4.48 X10'6 (4.70-6.10); RED CELL DISTRIBUTION WIDTH 16.1 % (11.5-14.5); WHITE BLOOD COUNT 8.1 X10'3 (4.5-11.0)
[2020-09-11 17:02] LABS: ANION GAP 9 (8-16); BILIRUBIN,TOTAL 0.3 MG/DL (0.1-1.0); BLOOD UREA NITROGEN 18 MG/DL (7-18); BUN/CREATININE RATIO 21.4 (5.4-32.0); CALCIUM 8.8 MG/DL (8.5-10.1); CHLORIDE 103 MMOL/L (99-107); CREATININE 0.84 MG/DL (0.60-1.10); GLUCOSE 95 MG/DL (70-104); POTASSIUM 4.4 MMOL/L (3.5-5.1); SODIUM 139 MMOL/L (135-145); TOTAL CARBON DIOXIDE 27.3 MMOL/L (24-32); eGFR > 90 ML/MIN
[2020-09-11 17:03] LABS: ALANINE AMINOTRANSFERASE 24 U/L (12-78); ALBUMIN 3.7 G/DL (3.4-5.0); ALKALINE PHOSPHATASE 125 IU/L (46-116); ASPARTATE AMINO TRANSFERASE 27 U/L (10-37); TOTAL PROTEIN 7.4 G/DL (6.4-8.2)
[2020-09-11] MEDS ORDERED: CLIN-15 PO (18:06)
[2020-09-11 18:12] VITALS: BP 141/82
[2020-09-11] MEDS ORDERED: HYDROcodone/acetaminophen 10/325mg tab PO ONE (18:15)
== END 2020-09-11 18:51 | disposition home or self-care (01) ==
LOC: ER 14:05
DX: S91.302A Unspecified open wound, left foot, initial encounter (principal); L03.116 Cellulitis of left lower limb; I87.2 Venous insufficiency (chronic) (peripheral); G89.29 Other chronic pain; Z88.7 Allergy status to serum and vaccine; Z79.899 Other long term (current) drug therapy; I48.91 Unspecified atrial fibrillation; I11.0 Hypertensive heart disease with heart failure; I50.9 Heart failure, unspecified; E78.00 Pure hypercholesterolemia, unspecified; J44.9 Chronic obstructive pulmonary disease, unspecified; G47.30 Sleep apnea, unspecified; X58.XXXA Exposure to other specified factors, initial encounter; Y93.89 Activity, other specified; Y92.89 Other specified places as the place of occurrence of the external cause; Y99.8 Other external cause status
CPT/HCPCS: 36415; 73630; 80053; 83605; 84145; 85025; 85651; 87040; 93925; 99285

== ENCOUNTER 2020-09-26 09:28 | Emergency (ER) | payer MEDICARE ==
[~2020-09-26] VITALS: Ht 188 cm; Wt 122.7 kg
[2020-09-26 09:30] VITALS: BP 134/71
== END 2020-09-26 09:41 | disposition left against medical advice (07) ==
LOC: ER 09:30
DX: M79.672 Pain in left foot (principal); Z53.21 Procedure and treatment not carried out due to patient leaving prior to being seen by health care provider

== ENCOUNTER 2020-11-16 05:04 | Emergency (ER) | payer MEDICARE ==
[~2020-11-16] VITALS: Ht 188 cm; Wt 122.7 kg
[2020-11-16] MEDS ORDERED: CLIN150C8 PO (05:50)
[2020-11-16 06:32] LABS: BASOPHILS # (AUTO) 0.1 X10'3 (0-0.2); BASOPHILS % (AUTO) 0.6 % (0-1); EOSINOPHILS # (AUTO) 0.4 X10'3 (0-0.9); EOSINOPHILS % (AUTO) 3.9 % (0-6); HEMATOCRIT 36.4 % (42.0-52.0); HEMOGLOBIN 12.2 g/dl (14.0-17.9); LYMPHOCYTES # (AUTO) 2.5 X10'3 (1.1-4.8); LYMPHOCYTES % (AUTO) 23.1 % (21-51); MEAN CORPUSCULAR HEMOGLOBIN 27.2 PG (27.0-31.0); MEAN CORPUSCULAR HGB CONC 33.4 g/dL (33.0-36.5); MEAN CORPUSCULAR VOLUME 81.4 FL (78-98); MONOCYTES # (AUTO) 0.8 X10'3 (0-0.9); MONOCYTES % (AUTO) 7.4 % (2-12); NEUTROPHILS # (AUTO) 6.9 X10'3 (1.8-7.7); PLATELET COUNT 289 X10'3 (140-440); RED BLOOD COUNT 4.48 X10'6 (4.70-6.10); WHITE BLOOD COUNT 10.6 X10'3 (4.5-11.0)
[2020-11-16 06:50] LABS: ALANINE AMINOTRANSFERASE 23 U/L (12-78); ALBUMIN 3.4 G/DL (3.4-5.0); ALBUMIN/GLOBULIN RATIO 0.9 (1.1-1.5); ALKALINE PHOSPHATASE 128 IU/L (46-116); ANION GAP 9 (8-16); ASPARTATE AMINO TRANSFERASE 18 U/L (10-37); BILIRUBIN,TOTAL 0.3 MG/DL (0.1-1.0); BLOOD UREA NITROGEN 28 MG/DL (7-18); BUN/CREATININE RATIO 13.9 (5.4-32.0); CALCIUM 8.9 MG/DL (8.5-10.1); CHLORIDE 110 MMOL/L (99-107); CREATININE 2.01 MG/DL (0.60-1.10); GLUCOSE 109 MG/DL (70-104); POTASSIUM 4.3 MMOL/L (3.5-5.1); SODIUM 145 MMOL/L (135-145); TOTAL CARBON DIOXIDE 26.3 MMOL/L (24-32); eGFR 34 ML/MIN
[2020-11-16 06:57] LABS: MAGNESIUM 2.2 MG/DL (1.5-2.4)
[2020-11-16 09:17] VITALS: BP 158/88
[2020-11-16 10:15] LABS: CLARITY,URINE SLIGHTLY CLOUDY (Clear); COLOR,URINE YELLOW (Yellow); UA COLLECTION TYPE NON-SPECIFIED
[2020-11-16 10:16] LABS: GLUCOSE, URINE NEGATIVE (Neg); KETONES,URINE NEGATIVE (Neg); NITRITES, URINE NEGATIVE (Neg); OCCULT BLOOD,URINE NEGATIVE (Neg); PROTEIN,URINE NEGATIVE (Neg); UROBILINOGEN,URINE 0.2 E.U/dL (0.2-1.0)
[2020-11-16 10:17] LABS: LEUKOCYTE ESTERASE ,URINE NEGATIVE (Neg)
[2020-11-16 10:18] LABS: BACTERIA,URINE NONE SEEN /HPF (Neg); MUCUS STRANDS FEW /LPF (Neg); SQUAMOUS EPITHELIAL CELL,UR FEW /LPF (FEW)
[2020-11-16 10:19] LABS: AMORPHOUS PHOSPHATES 1+; RBC,URINE 0-2 /HPF (0-2); WBC,URINE 0-4 /HPF (0-4)
== END 2020-11-16 09:19 | disposition home or self-care (01) ==
LOC: ER 05:05
DX: L03.115 Cellulitis of right lower limb (principal); Z20.822 Contact with and (suspected) exposure to COVID-19; L03.116 Cellulitis of left lower limb; R60.0 Localized edema; J02.9 Acute pharyngitis, unspecified; R51.9 Headache, unspecified; N28.9 Disorder of kidney and ureter, unspecified; I48.91 Unspecified atrial fibrillation; E78.00 Pure hypercholesterolemia, unspecified; I11.0 Hypertensive heart disease with heart failure; I50.9 Heart failure, unspecified; J44.9 Chronic obstructive pulmonary disease, unspecified; G47.39 Other sleep apnea; Z72.89 Other problems related to lifestyle; Z86.19 Personal history of other infectious and parasitic diseases; Z88.7 Allergy status to serum and vaccine; Z79.899 Other long term (current) drug therapy
CPT/HCPCS: 36415; 71045; 80053; 81001; 83605; 83735; 83880; 84145; 85025; 85651; 87040; 87081; 87635; 87880; 93005; 99285; C9803

== ENCOUNTER 2021-05-18 00:11 | Inpatient (IN) | payer MEDICARE ==
[~2021-05-18] VITALS: Ht 188 cm; Wt 134.1 kg
[~2021-05-18 00:11] MED LIST changes: -APIX5TAB3 PO; -CARV12.545 PO; -CEPH-585 PO; -CHOL378P PO; -DILT-36 PO; -FURO40TA4 PO; -GABA300C PO; -GEMF600T89 PO; +MONT-40 PO; -MONT10TA32 PO; -OLOP5DRO14 EACHEYE
[2021-05-18] MEDS ORDERED: aspirin 325mg tablet PO ONE (02:20)
[2021-05-18 02:45] LABS: BASOPHILS # (AUTO) 0.1 X10'3 (0-0.2); BASOPHILS % (AUTO) 0.8 % (0-1); EOSINOPHILS # (AUTO) 0.2 X10'3 (0-0.9); EOSINOPHILS % (AUTO) 1.5 % (0-6); HEMATOCRIT 31.1 % (42.0-52.0); HEMOGLOBIN 9.8 g/dl (14.0-17.9); LYMPHOCYTES # (AUTO) 2.1 X10'3 (1.1-4.8); LYMPHOCYTES % (AUTO) 19.2 % (21-51); MEAN CORPUSCULAR HEMOGLOBIN 23.1 PG (27.0-31.0); MEAN CORPUSCULAR HGB CONC 31.6 g/dL (33.0-36.5); MEAN CORPUSCULAR VOLUME 73.1 FL (78-98); MEAN PLATELET VOLUME 7.6 FL (7.4-10.4); MONOCYTES # (AUTO) 0.9 X10'3 (0-0.9); MONOCYTES % (AUTO) 8.3 % (2-12); NEUTROPHILS # (AUTO) 7.8 X10'3 (1.8-7.7); NEUTROPHILS % (AUTO) 70.2 % (42-75); PLATELET COUNT 349 X10'3 (140-440); RED BLOOD COUNT 4.26 X10'6 (4.70-6.10); RED CELL DISTRIBUTION WIDTH 16.6 % (11.5-14.5); WHITE BLOOD COUNT 11.2 X10'3 (4.5-11.0)
[2021-05-18 02:51] LABS: APTT 31 SECONDS (22-32)
[2021-05-18 02:54] LABS: ALBUMIN 3.1 G/DL (3.4-5.0); ANION GAP 10 (8-16); BILIRUBIN,TOTAL 0.3 MG/DL (0.1-1.0); BLOOD UREA NITROGEN 16 MG/DL (7-18); BUN/CREATININE RATIO 18.2 (5.4-32.0); CALCIUM 9.1 MG/DL (8.5-10.1); CHLORIDE 102 MMOL/L (99-107); CREATININE 0.88 MG/DL (0.60-1.10); GLUCOSE 119 MG/DL (70-104); POTASSIUM 3.9 MMOL/L (3.5-5.1); SODIUM 139 MMOL/L (135-145); TOTAL CARBON DIOXIDE 27.4 MMOL/L (24-32); eGFR 87 ML/MIN
[2021-05-18 02:55] LABS: ALANINE AMINOTRANSFERASE 19 U/L (12-78); ALBUMIN/GLOBULIN RATIO 0.8 (1.1-1.5); ALKALINE PHOSPHATASE 183 IU/L (46-116); ASPARTATE AMINO TRANSFERASE 19 U/L (10-37)
[2021-05-18] MEDS ORDERED: potassium Cl 20 mEq SR tablet PO PRN ×2 (03:10)
[2021-05-18] MEDS ORDERED: potassium CL 10mEq/100ml bag 100 ML IV PRN (03:10)
[2021-05-18] MEDS ORDERED: magnesium 4gm in 100ml NS 100 ML IV PRN (03:10)
[2021-05-18] MEDS ORDERED: magnesium 2GM in 50ml NS 50 ML IV PRN (03:10)
[2021-05-18] MEDS ORDERED: ondansetron/PF 4mg/2ml inj IV PRN (03:10)
[2021-05-18] MEDS ORDERED: mag hydrox/Alum hydrox/simeth 30ml oral suspension PO PRN (03:10)
[2021-05-18] MEDS ORDERED: acetaminophen 325mg tablet PO PRN ×2 (03:10)
[2021-05-18] MEDS ORDERED: HYDROcodone/acetaminophen 10/325mg tab PO PRN (03:10)
[2021-05-18] MEDS ORDERED: cefTRIAXone 1g/NS 100ml IVPB 100 ML IV ONE (03:35)
[2021-05-18 03:37] LABS: CHOL/HDL RATIO 1.6 (0.00-4.99); CHOLESTEROL 166 MG/DL (0-200); HDL CHOLESTEROL 106 MG/DL (35-60); LDL CHOLESTEROL 53 MG/DL (50-100); TRIGLYCERIDES 37 MG/DL (20-135)
[2021-05-18] MEDS ORDERED: CLON0.5T5 PO (03:59)
[2021-05-18] MEDS ORDERED: DOXY50CA2 PO (03:59)
[2021-05-18] MEDS ORDERED: DUTA0.5C36 PO (03:59)
[2021-05-18] MEDS ORDERED: CYCL-1 PO (03:59)
[2021-05-18] MEDS ORDERED: ONDA-104 PO (03:59)
[2021-05-18] MEDS ORDERED: DULO60CA65 PO (03:59)
[2021-05-18] MEDS ORDERED: CARV25TA2 PO (03:59)
[2021-05-18] MEDS ORDERED: ROPI0.5T4 PO (03:59)
[2021-05-18] MEDS ORDERED: OXYC1TAB17 PO (03:59)
[2021-05-18] MEDS ORDERED: BUPR-317 PO (03:59)
[2021-05-18] MEDS ORDERED: FLO0.4C PO (03:59)
[2021-05-18] MEDS ORDERED: APIX5TAB3 PO (04:00)
[2021-05-18] MEDS ORDERED: TRAZ-256 PO (04:01)
[2021-05-18] MEDS ORDERED: BUPR8TAB4 SL (04:01)
[2021-05-18] MEDS ORDERED: AMIO200T61 PO (04:01)
[2021-05-18] MEDS ORDERED: ondansetron 4mg rapidly disintigrating tab PO PRN (04:10)
[2021-05-18] MEDS ORDERED: traZODone 150mg tablet PO PRN (04:10)
[2021-05-18] MEDS ORDERED: clonazePAM 0.5mg tablet PO PRN (04:10)
[2021-05-18] MEDS ORDERED: traZODone 50mg tablet PO PRN (04:25)
[2021-05-18 04:40] LABS: URINE AMPHETAMINE SCREEN NEGATIVE (Neg); URINE BARBITUATE SCREEN NEGATIVE (Neg); URINE BENZODIAZEPINES SCREEN NEGATIVE (Neg); URINE CANNABINOID SCREEN NEGATIVE (Neg); URINE COCAINE SCREEN NEGATIVE (Neg); URINE METHADONE SCREEN NEGATIVE (Neg); URINE OPIATE SCREEN POSITIVE (Neg); URINE PHENCYCLIDINE SCREEN NEGATIVE (Neg)
[2021-05-18 05:32] VITALS: BP 145/76
[2021-05-18] MEDS: oxyCODONE/APAP 10/325mg tablet PO PRN ×2 (05:43→17:14)
[2021-05-18 06:00] VITALS: BP 153/77
[2021-05-18] MEDS: K and/or MAG REPLACEMENT MC SCH ×2 (08:00→19:08)
[2021-05-18] MEDS: BUPRENORPHINE 8 MG SL SCH ×2 (08:00→20:00)
[2021-05-18] MEDS ORDERED: apixaban 5mg tablet PO SCH (08:00)
[2021-05-18] MEDS: carVEDilol 12.5mg tablet PO SCH (08:00)
[2021-05-18] MEDS: dutasteride 0.5 MG capsule PO SCH (08:00)
[2021-05-18] MEDS: lisinopril 10 MG tablet PO SCH (08:00)
[2021-05-18] MEDS: HYDROcodone/acetaminophen 5mg/325mg tablet PO PRN ×2 (08:40→20:41)
[2021-05-18] MEDS: amiodarone 200mg tablet PO SCH ×2 (08:41→20:44)
[2021-05-18] MEDS: pantoprazole 40mg Tablet.DR PO SCH (08:41)
[2021-05-18] MEDS: duloxetine 30mg CAPSULE.DR PO SCH (08:41)
[2021-05-18] MEDS: buPROPion SR 150mg tablet PO SCH (08:42)
[2021-05-18] MEDS: docusate sod 100mg capsule PO SCH ×2 (08:42→20:44)
[2021-05-18] MEDS: apixaban 5mg tablet PO SCH ×2 (08:42→20:41)
[2021-05-18] MEDS: cefTRIAXone 1g/NS 100ml IVPB 100 ML IV SCH (08:42)
[2021-05-18 11:00] VITALS: BP 109/70
[2021-05-18] MEDS ORDERED: morphine 4 MG/ML inj SYRINge IV ONE (11:00)
[2021-05-18] MEDS ORDERED: iohexol 350MG/ML 100ml bottle IV ONE (11:17)
--- NOTE | 2021-05-18 12:08 | NUR ---
Dr. Riley notified of uneffective pain medication, X1 dose order of morphine ordered. new order received for aspirin 81 mg, to hold blood pressure medication for 24 hours, if MRI result (+) hold medications for 48 hours
[2021-05-18] MEDS: aspirin 81mg, enteric-coated 1 TAB TABLET.DR PO SCH (12:30)
--- NOTE | 2021-05-18 14:22 | NUR ---
WOUND INFECTION EDUCATION PROVIDED BY WOUND CARE 1. Patient instructed to call their primary doctor, or go the ED immediately if any of the following symptoms occur: * Increased pain in wound * Increase in drainage from the wound * Redness in the skin surrounding the wound * Warmth in the skin surrounding the wound * Bleeding from the wound * Temperature of 101 or greater 2. If any of these occur while in the hospital tell a nurse immediately. PRESSURE ULCER EDUCATION: DEFINITION: A pressure ulcer is an area of skin that breaks down when you stay in one position too long. The constant pressure against the skin reduces the blood flow to that area and the affected tissue dies. CAUSES: "Being bedridden or in a wheelchair "Fragile skin "Having a chronic condition, such as diabetes or vascular disease "Inability to move certain parts of your body without assistance "Older age "Incontinence of urine or stool SYMPTOMS: "A reddened area that DOES NOT turn white when pressed on - this can be the beginning of a pressure ulcer "A blister, deep sore or a crater - these can be advanced pressure ulcers FIRST AID: "Relieve the pressure on this area "Keep the area clean and dry "Call your primary doctor if you see any of the above symptoms "DO NOT massage the area "DO NOT use a donut shaped or ring shaped pillow- these actually interfere with the blood flow and cause complications PREVENTION: "Check for pressure ulcers everyday "Change position at least every two hours to relieve pressure "Use items that help relieve pressure- pillows, sheepskin, foam padding, and powders. "Keep skin clean and dry "Eat healthy well balanced meals "Exercise daily IF YOU SEE ANY OF THESE SYMPTOMS WHILE IN THE HOSPITAL - TELL YOUR NURSE IMMEDIATELY. IF YOU SEE ANY OF THESE SYMPTOMS WHILE AT HOME OR HAVE ANY QUESTIONS OR CONCERNS ABOUT PRESSURE ULCERS - CALL YOUR PRIMARY DOCTOR IMMEDIATELY. Addendum: 05/18/21 at 1422 by Yolanda Arreguin RN Amended: Links added.
[2021-05-18 15:00] VITALS: BP 135/68
--- NOTE | 2021-05-18 16:59 | NUR ---
Dr Rosemary white for clarification on holding blood pressure medication d/t MRI order cancel.
--- NOTE | 2021-05-18 17:03 | NUR ---
call back received from Dr. Riley to keep blood pressure medications on hold, will re-order MRI.
[2021-05-18 18:00] VITALS: BP 123/67
[2021-05-18] MEDS ORDERED: enoxaparin 40mg/0.4ml syringe SQ SCH (20:00)
[2021-05-18] MEDS: cyclobenzaprine 10mg tablet PO PRN (20:39)
[2021-05-18] MEDS: ROPINIRole 1mg tablet PO SCH (20:40)
[2021-05-18] MEDS: tamsulosin 0.4mg capsule PO SCH (20:40)
[2021-05-18 22:00] VITALS: BP 141/80
[2021-05-19] MEDS: oxyCODONE/APAP 10/325mg tablet PO PRN ×5 (00:31→22:38)
[2021-05-19 02:04] VITALS: BP 150/85
[2021-05-19] MEDS: cyclobenzaprine 10mg tablet PO PRN ×3 (02:51→19:17)
[2021-05-19] MEDS: HYDROcodone/acetaminophen 5mg/325mg tablet PO PRN ×4 (02:52→20:39)
[2021-05-19 07:33] LABS: BASOPHILS # (AUTO) 0.1 X10'3 (0-0.2); BASOPHILS % (AUTO) 1.7 % (0-1); EOSINOPHILS # (AUTO) 0.2 X10'3 (0-0.9); EOSINOPHILS % (AUTO) 2.7 % (0-6); HEMATOCRIT 32.7 % (42.0-52.0); HEMOGLOBIN 10.3 g/dl (14.0-17.9); LYMPHOCYTES # (AUTO) 2.2 X10'3 (1.1-4.8); LYMPHOCYTES % (AUTO) 26.4 % (21-51); MEAN CORPUSCULAR HGB CONC 31.6 g/dL (33.0-36.5); MEAN CORPUSCULAR VOLUME 72.7 FL (78-98); MEAN PLATELET VOLUME 8.1 FL (7.4-10.4); MONOCYTES # (AUTO) 0.8 X10'3 (0-0.9); MONOCYTES % (AUTO) 10.1 % (2-12); NEUTROPHILS # (AUTO) 4.9 X10'3 (1.8-7.7); NEUTROPHILS % (AUTO) 59.1 % (42-75); PLATELET COUNT 286 X10'3 (140-440); RED BLOOD COUNT 4.49 X10'6 (4.70-6.10); WHITE BLOOD COUNT 8.3 X10'3 (4.5-11.0)
[2021-05-19 07:52] LABS: ALANINE AMINOTRANSFERASE 17 U/L (12-78); ALBUMIN/GLOBULIN RATIO 0.7 (1.1-1.5); ALKALINE PHOSPHATASE 187 IU/L (46-116); ANION GAP 9 (8-16); ASPARTATE AMINO TRANSFERASE 24 U/L (10-37); BILIRUBIN,TOTAL 0.3 MG/DL (0.1-1.0); BLOOD UREA NITROGEN 8 MG/DL (7-18); BUN/CREATININE RATIO 10.4 (5.4-32.0); CALCIUM 8.7 MG/DL (8.5-10.1); CHLORIDE 106 MMOL/L (99-107); CREATININE 0.77 MG/DL (0.60-1.10); GLUCOSE 105 MG/DL (70-104); MAGNESIUM 2.3 MG/DL (1.5-2.4); POTASSIUM 3.6 MMOL/L (3.5-5.1); SODIUM 143 MMOL/L (135-145); TOTAL CARBON DIOXIDE 28.4 MMOL/L (24-32); TOTAL PROTEIN 7.2 G/DL (6.4-8.2); eGFR > 90 ML/MIN
[2021-05-19] MEDS: dutasteride 0.5 MG capsule PO SCH (08:00)
[2021-05-19] MEDS: BUPRENORPHINE 8 MG SL SCH ×2 (08:00→20:00)
[2021-05-19] MEDS: K and/or MAG REPLACEMENT MC SCH ×2 (08:00→19:18)
[2021-05-19] MEDS: cefTRIAXone 1g/NS 100ml IVPB 100 ML IV SCH (08:04)
[2021-05-19] MEDS: buPROPion SR 150mg tablet PO SCH (08:04)
[2021-05-19] MEDS: duloxetine 30mg CAPSULE.DR PO SCH (08:04)
[2021-05-19] MEDS: docusate sod 100mg capsule PO SCH ×2 (08:05→19:18)
[2021-05-19] MEDS: pantoprazole 40mg Tablet.DR PO SCH (08:05)
[2021-05-19] MEDS: amiodarone 200mg tablet PO SCH ×2 (08:05→19:18)
[2021-05-19] MEDS: aspirin 81mg, enteric-coated 1 TAB TABLET.DR PO SCH (08:05)
[2021-05-19] MEDS: apixaban 5mg tablet PO SCH ×2 (08:05→19:17)
[2021-05-19 11:00] VITALS: BP 123/72
[2021-05-19 15:00] VITALS: BP 112/74
[2021-05-19] MEDS: tamsulosin 0.4mg capsule PO SCH (20:39)
[2021-05-19] MEDS: ROPINIRole 1mg tablet PO SCH (20:39)
[2021-05-19 22:00] VITALS: BP 151/78
[2021-05-20 02:00] VITALS: BP 138/77
[2021-05-20] MEDS: HYDROcodone/acetaminophen 5mg/325mg tablet PO PRN ×2 (02:22→08:22)
[2021-05-20 03:00] VITALS: BP 138/77
[2021-05-20] MEDS: cyclobenzaprine 10mg tablet PO PRN ×2 (03:27→09:53)
[2021-05-20] MEDS: oxyCODONE/APAP 10/325mg tablet PO PRN ×3 (03:27→14:10)
[2021-05-20 06:00] VITALS: BP 144/74
[2021-05-20 07:15] LABS: BASOPHILS # (AUTO) 0.1 X10'3 (0-0.2); BASOPHILS % (AUTO) 0.9 % (0-1); EOSINOPHILS # (AUTO) 0.4 X10'3 (0-0.9); EOSINOPHILS % (AUTO) 4.8 % (0-6); HEMATOCRIT 30.8 % (42.0-52.0); HEMOGLOBIN 9.9 g/dl (14.0-17.9); LYMPHOCYTES # (AUTO) 2.1 X10'3 (1.1-4.8); LYMPHOCYTES % (AUTO) 28.7 % (21-51); MEAN CORPUSCULAR HEMOGLOBIN 23.5 PG (27.0-31.0); MEAN CORPUSCULAR HGB CONC 32.1 g/dL (33.0-36.5); MEAN CORPUSCULAR VOLUME 73.1 FL (78-98); MEAN PLATELET VOLUME 7.8 FL (7.4-10.4); MONOCYTES # (AUTO) 0.7 X10'3 (0-0.9); MONOCYTES % (AUTO) 9.5 % (2-12); NEUTROPHILS # (AUTO) 4.2 X10'3 (1.8-7.7); NEUTROPHILS % (AUTO) 56.1 % (42-75); PLATELET COUNT 292 X10'3 (140-440); RED BLOOD COUNT 4.21 X10'6 (4.70-6.10); RED CELL DISTRIBUTION WIDTH 16.8 % (11.5-14.5); WHITE BLOOD COUNT 7.4 X10'3 (4.5-11.0)
[2021-05-20] MEDS: BUPRENORPHINE 8 MG SL SCH (08:00)
[2021-05-20] MEDS: K and/or MAG REPLACEMENT MC SCH (08:00)
[2021-05-20 08:07] LABS: ALANINE AMINOTRANSFERASE 17 U/L (12-78); ALBUMIN 2.9 G/DL (3.4-5.0); ALBUMIN/GLOBULIN RATIO 0.8 (1.1-1.5); ALKALINE PHOSPHATASE 170 IU/L (46-116); ANION GAP 8 (8-16); ASPARTATE AMINO TRANSFERASE 23 U/L (10-37); BILIRUBIN,TOTAL 0.3 MG/DL (0.1-1.0); BLOOD UREA NITROGEN 9 MG/DL (7-18); BUN/CREATININE RATIO 11.7 (5.4-32.0); CALCIUM 8.6 MG/DL (8.5-10.1); CHLORIDE 107 MMOL/L (99-107); CREATININE 0.77 MG/DL (0.60-1.10); GLUCOSE 110 MG/DL (70-104); MAGNESIUM 2.4 MG/DL (1.5-2.4); POTASSIUM 3.9 MMOL/L (3.5-5.1); SODIUM 143 MMOL/L (135-145); TOTAL PROTEIN 6.7 G/DL (6.4-8.2); eGFR > 90 ML/MIN
[2021-05-20] MEDS ORDERED: LACT1CAP26 PO (09:26)
[2021-05-20] MEDS ORDERED: CEFD300C3 PO (09:26)
[2021-05-20] MEDS ORDERED: ASPI-1071 PO (09:26)
[2021-05-20] MEDS: amiodarone 200mg tablet PO SCH (09:52)
[2021-05-20] MEDS: lisinopril 10 MG tablet PO SCH (09:54)
[2021-05-20] MEDS: buPROPion SR 150mg tablet PO SCH (09:55)
[2021-05-20] MEDS: aspirin 81mg, enteric-coated 1 TAB TABLET.DR PO SCH (09:55)
[2021-05-20] MEDS: duloxetine 30mg CAPSULE.DR PO SCH (09:55)
[2021-05-20] MEDS: pantoprazole 40mg Tablet.DR PO SCH (09:57)
[2021-05-20] MEDS: apixaban 5mg tablet PO SCH (09:57)
[2021-05-20] MEDS: docusate sod 100mg capsule PO SCH (09:57)
[2021-05-20] MEDS: carVEDilol 12.5mg tablet PO SCH (09:58)
[2021-05-20] MEDS ORDERED: fluconazole 150mg tablet PO ONE (10:10)
[2021-05-20 11:00] VITALS: BP 140/72
[2021-05-20] MEDS: dutasteride 0.5 MG capsule PO SCH (11:14)
[2021-05-20] MEDS: cefTRIAXone 1g/NS 100ml IVPB 100 ML IV SCH (11:21)
--- NOTE | 2021-05-20 12:27 | NUR ---
Called [facility] to "call in" new RX - nystatin. use 3 times a day for 10 days.
[2021-05-20] MEDS ORDERED: nystatin 15 GM powder TP SCH (13:00)
--- NOTE | 2021-05-20 14:22 | NUR ---
Pt stable for D/C New rx was electronically sent to [facility]. 1 was called into [facility] [employer]. PIV was removed and pt tolerated well. Tele box was removed and handed back to teletype adjuster monitor. Pt received elicarlis coupon and wanted everything to be put in the folder. He states; "I do not have time to go over all d/c ppwk as I have done this a million times before and dont want to". He was rushing me to get out the door. Pt was wheeled down to private vehicle in [place] where his ride was waiting.
--- NOTE | 2021-05-20 14:32 | NUR ---
reposition pt has been repositioning himself throughout shift.
== END 2021-05-20 14:20 | disposition home health service (06) | DRG 69 ==
LOC: ER 00:12 → UNDOADMIN 03:12 → ED HOLD 03:12 → MED 3N 05:10 → PCU 3S 05-19 21:48
PROVIDERS: ADMIT Family Medicine; ATTEND Family Medicine
PROC: B3251ZZ Computerized Tomography (CT Scan) of Bilateral Common Carotid Arteries using Low Osmolar Contrast (ICD-10-PCS; principal; 2021-05-18)
PROC: B32G1ZZ Computerized Tomography (CT Scan) of Bilateral Vertebral Arteries using Low Osmolar Contrast (ICD-10-PCS; 2021-05-18)
PROC: B32R1ZZ Computerized Tomography (CT Scan) of Intracranial Arteries using Low Osmolar Contrast (ICD-10-PCS; 2021-05-18)
PROC: B3281ZZ Computerized Tomography (CT Scan) of Bilateral Internal Carotid Arteries using Low Osmolar Contrast (ICD-10-PCS; 2021-05-18)
DX: G45.9 Transient cerebral ischemic attack, unspecified (principal); M87.88 Other osteonecrosis, other site; I48.20 Chronic atrial fibrillation, unspecified; L03.116 Cellulitis of left lower limb; L03.115 Cellulitis of right lower limb; I50.32 Chronic diastolic (congestive) heart failure; R47.01 Aphasia; I11.0 Hypertensive heart disease with heart failure; F41.9 Anxiety disorder, unspecified; G47.30 Sleep apnea, unspecified; W01.0XXA Fall on same level from slipping, tripping and stumbling without subsequent striking against object, initial encounter; R47.81 Slurred speech; D64.9 Anemia, unspecified; E78.00 Pure hypercholesterolemia, unspecified; E78.5 Hyperlipidemia, unspecified; J44.9 Chronic obstructive pulmonary disease, unspecified; Z80.0 Family history of malignant neoplasm of digestive organs; Z82.5 Family history of asthma and other chronic lower respiratory diseases; Z98.1 Arthrodesis status; Y93.89 Activity, other specified; Y92.098 Other place in other non-institutional residence as the place of occurrence of the external cause; Y99.8 Other external cause status; Z88.7 Allergy status to serum and vaccine; Z79.899 Other long term (current) drug therapy
CPT/HCPCS: 36415; 70450; 70496; 70498; 73030; 73501; 80053; 80061; 80305; 83036; 83735; 84443; 84484; 85025; 85610; 85730; 87081; 92508; 92616; 93005; 93306; 93970; 97161; 97530; 99285; G0378; J0696; J2270; Q9967

== ENCOUNTER 2021-09-28 00:27 | Emergency (ER) | payer MEDICARE ==
[~2021-09-28] VITALS: Ht 188 cm; Wt 127.3 kg
[~2021-09-28 00:27] MED LIST changes: +AMIO200T61 PO; +APIX5TAB3 PO; +ASPI-1071 PO; -ATRNS BOTHNARES; -AZEL137S4 BOTHNARES; -BUDE0.5A3 NEB; +BUPR-317 PO; +BUPR8TAB4 SL; +CARV25TA2 PO; +CLON0.5T5 PO; +CYCL-1 PO; +DULO60CA65 PO; +DUTA0.5C36 PO; -FLUO-167 PO; +LACT1CAP26 PO; -MONT-40 PO; +ONDA-104 PO; +OXYC1TAB17 PO; +ROPI0.5T4 PO; -TIOT18CA3 INH; +TRAZ-256 PO; -[UNRECOGNIZED DRUG - CODE] PO
[2021-09-28] MEDS ORDERED: vancomycin/NS 1 GM ADD-VANTAGE 250 ML IV ONE (01:45)
[2021-09-28] MEDS ORDERED: morphine 4 MG/ML inj SYRINge IV ONE (02:25)
[2021-09-28 02:34] LABS: BASOPHILS # (AUTO) 0.1 X10'3 (0-0.2); BASOPHILS % (AUTO) 0.6 % (0-1); EOSINOPHILS # (AUTO) 0.4 X10'3 (0-0.9); EOSINOPHILS % (AUTO) 4.3 % (0-6); HEMATOCRIT 25.5 % (42.0-52.0); HEMOGLOBIN 8.1 g/dl (14.0-17.9); LYMPHOCYTES # (AUTO) 1.6 X10'3 (1.1-4.8); LYMPHOCYTES % (AUTO) 18.3 % (21-51); MEAN CORPUSCULAR HEMOGLOBIN 22.4 PG (27.0-31.0); MEAN CORPUSCULAR HGB CONC 31.9 g/dL (33.0-36.5); MEAN CORPUSCULAR VOLUME 70.4 FL (78-98); MEAN PLATELET VOLUME 7.5 FL (7.4-10.4); MONOCYTES % (AUTO) 11.7 % (2-12); NEUTROPHILS # (AUTO) 5.8 X10'3 (1.8-7.7); NEUTROPHILS % (AUTO) 65.1 % (42-75); PLATELET COUNT 236 X10'3 (140-440); RED BLOOD COUNT 3.62 X10'6 (4.70-6.10); WHITE BLOOD COUNT 8.9 X10'3 (4.5-11.0)
[2021-09-28 02:39] LABS: ALANINE AMINOTRANSFERASE 49 U/L (12-78); ALBUMIN 2.5 G/DL (3.4-5.0); ALBUMIN/GLOBULIN RATIO 0.8 (1.1-1.5); ALKALINE PHOSPHATASE 103 IU/L (46-116); ANION GAP 9 (8-16); ASPARTATE AMINO TRANSFERASE 20 U/L (10-37); BILIRUBIN,TOTAL 0.2 MG/DL (0.1-1.0); BLOOD UREA NITROGEN 25 MG/DL (7-18); BUN/CREATININE RATIO 26.9 (5.4-32.0); CHLORIDE 105 MMOL/L (99-107); CREATININE 0.93 MG/DL (0.60-1.10); GLUCOSE 173 MG/DL (70-104); POTASSIUM 4.2 MMOL/L (3.5-5.1); SODIUM 140 MMOL/L (135-145); TOTAL CARBON DIOXIDE 26.4 MMOL/L (24-32); TOTAL PROTEIN 5.6 G/DL (6.4-8.2); eGFR 81 ML/MIN
[2021-09-28 03:06] LABS: PLATELET ESTIMATE NORMAL
[2021-09-28 03:07] LABS: ANISOCYTOSIS 2+; MICROCYTOSIS 1+; POLYCHROMASIA 1+
[2021-09-28] MEDS ORDERED: CLIN-97 PO ×2 (03:15)
[2021-09-28 04:23] VITALS: BP 119/69
== END 2021-09-28 04:27 | disposition home or self-care (01) ==
LOC: ER 00:27
DX: L03.116 Cellulitis of left lower limb (principal); L03.115 Cellulitis of right lower limb; D64.9 Anemia, unspecified; K92.1 Melena; R19.7 Diarrhea, unspecified; I48.91 Unspecified atrial fibrillation; N40.0 Benign prostatic hyperplasia without lower urinary tract symptoms; I11.0 Hypertensive heart disease with heart failure; I50.9 Heart failure, unspecified; E78.00 Pure hypercholesterolemia, unspecified; I10 Essential (primary) hypertension; J44.9 Chronic obstructive pulmonary disease, unspecified; G47.30 Sleep apnea, unspecified; Z86.16 Personal history of COVID-19; Z72.89 Other problems related to lifestyle; Z79.899 Other long term (current) drug therapy; Z79.82 Long term (current) use of aspirin; Z79.2 Long term (current) use of antibiotics; Z88.7 Allergy status to serum and vaccine
CPT/HCPCS: 36415; 80053; 83605; 85008; 85025; 87040; 93005; 96365; 96366; 96375; 99285; J2270; J3370; 99284

== ENCOUNTER 2021-10-05 16:44 | Inpatient (IN) | payer MEDICARE ==
[~2021-10-05] VITALS: Ht 188 cm; Wt 122.7 kg
[~2021-10-05 16:44] MED LIST changes: +CLIN-97 PO
[2021-10-05] MEDS ORDERED: LIDOcaine 2% 10ml TOPICAL JELLY (Urojet) TP ONE (17:35)
[2021-10-05] MEDS ORDERED: ringers solution, lactated 1000ml IV soln IV ONE (17:40)
[2021-10-05] MEDS ORDERED: cefepime 2g/NS 100ml ADVANTAGE 100 ML IV ONE (17:50)
[2021-10-05 18:21] LABS: BASOPHILS % (AUTO) 0.2 % (0-1); EOSINOPHILS # (AUTO) 1.4 X10'3 (0-0.9); EOSINOPHILS % (AUTO) 16.1 % (0-6); HEMATOCRIT 24.9 % (42.0-52.0); HEMOGLOBIN 8.1 g/dl (14.0-17.9); LYMPHOCYTES # (AUTO) 1.9 X10'3 (1.1-4.8); LYMPHOCYTES % (AUTO) 22.1 % (21-51); MEAN CORPUSCULAR HEMOGLOBIN 22.5 PG (27.0-31.0); MEAN CORPUSCULAR HGB CONC 32.5 g/dL (33.0-36.5); MEAN CORPUSCULAR VOLUME 69.3 FL (78-98); MEAN PLATELET VOLUME 7.4 FL (7.4-10.4); MONOCYTES # (AUTO) 1.2 X10'3 (0-0.9); MONOCYTES % (AUTO) 13.5 % (2-12); NEUTROPHILS # (AUTO) 4.2 X10'3 (1.8-7.7); NEUTROPHILS % (AUTO) 48.1 % (42-75); PLATELET COUNT 245 X10'3 (140-440); RED CELL DISTRIBUTION WIDTH 18.2 % (11.5-14.5); WHITE BLOOD COUNT 8.8 X10'3 (4.5-11.0)
[2021-10-05 18:29] LABS: ALANINE AMINOTRANSFERASE 27 U/L (12-78); ALBUMIN 2.7 G/DL (3.4-5.0); ALBUMIN/GLOBULIN RATIO 0.8 (1.1-1.5); ALKALINE PHOSPHATASE 105 IU/L (46-116); ANION GAP 10 (8-16); ASPARTATE AMINO TRANSFERASE 20 U/L (10-37); BILIRUBIN,TOTAL 0.2 MG/DL (0.1-1.0); BLOOD UREA NITROGEN 43 MG/DL (7-18); BUN/CREATININE RATIO 21.6 (5.4-32.0); CHLORIDE 102 MMOL/L (99-107); CREATININE 1.99 MG/DL (0.60-1.10); GLUCOSE 126 MG/DL (70-104); POTASSIUM 4.7 MMOL/L (3.5-5.1); SODIUM 138 MMOL/L (135-145); TOTAL CARBON DIOXIDE 26.1 MMOL/L (24-32); TOTAL PROTEIN 6.3 G/DL (6.4-8.2); eGFR 34 ML/MIN
--- NOTE | 2021-10-05 18:30 | NUR ---
ASSUMED CARE OF PT. REPORT GIVEN BY KAREY POLK. PT AWAKE AND ALERT. PLAN OF CARE DISCUSSED WITH PT. JAMES CATH PLACED PER ORDER. PT TOLERATED WELL. UA SENT. WILL MONITOR.
[2021-10-05 18:38] LABS: MAGNESIUM 2.9 MG/DL (1.5-2.4)
[2021-10-05 18:51] LABS: COLOR,URINE YELLOW (Yellow); GLUCOSE, URINE NEGATIVE (Neg); KETONES,URINE NEGATIVE (Neg); LEUKOCYTE ESTERASE ,URINE NEGATIVE (Neg); NITRITES, URINE NEGATIVE (Neg); OCCULT BLOOD,URINE NEGATIVE (Neg); PH,URINE 5.5 (4.8-8.0); PROTEIN,URINE NEGATIVE (Neg); UROBILINOGEN,URINE 0.2 E.U/dL (0.2-1.0)
[2021-10-05 18:52] LABS: UA COLLECTION TYPE FOLEY CATH
[2021-10-05 18:57] LABS: CLARITY,URINE SLIGHTLY CLOUDY (Clear)
[2021-10-05 19:11] LABS: BACTERIA,URINE NONE SEEN /HPF (Neg); RBC,URINE 0-2 /HPF (0-2); SQUAMOUS EPITHELIAL CELL,UR FEW /LPF (FEW); TRANSITIONAL EPI CELLS,URINE FEW /HPF; WBC,URINE 0-4 /HPF (0-4)
[2021-10-05 19:29] LABS: ANISOCYTOSIS 2+; MICROCYTOSIS 2+; PLATELET ESTIMATE NORMAL; POLYCHROMASIA 1+
[2021-10-05 19:30] LABS: ELLIPTOCYTES FEW
[2021-10-05] MEDS ORDERED: oxyCODONE IR 5mg (immed. release) tablet PO ONE (19:50)
--- NOTE | 2021-10-05 20:00 | NUR ---
PT C/O MAR LE PAIN. WILL NOTIFIED MD FOR ANALGESIC ORDER AND MONITOR.
[2021-10-05] MEDS ORDERED: potassium CL 10mEq/100ml bag 100 ML IV PRN (23:10)
[2021-10-05] MEDS ORDERED: acetaminophen 325mg tablet PO PRN (23:10)
[2021-10-05] MEDS ORDERED: magnesium 4gm in 100ml NS 100 ML IV PRN (23:10)
[2021-10-05] MEDS ORDERED: magnesium 2GM in 50ml NS 50 ML IV PRN (23:10)
[2021-10-05] MEDS ORDERED: magnesium hydroxide 30ml (MOM) UD suspension PO PRN (23:10)
[2021-10-05] MEDS ORDERED: POTASSIUM BICARB 20meq eff tab 20 MEQ TABLET.EFF PO PRN ×2 (23:10)
[2021-10-05] MEDS ORDERED: magnesium Cl slow-release 64mg tablet PO PRN (23:10)
[2021-10-05 23:23] LABS: POTASSIUM 4.6 MMOL/L (3.5-5.1)
[2021-10-05] MEDS ORDERED: FLUC100T64 PO (23:58)
[2021-10-05] MEDS ORDERED: BUME2TAB7 PO (23:58)
[2021-10-05] MEDS ORDERED: DOXY-224 PO (23:58)
[2021-10-06] MEDS ORDERED: CEPH500C2 PO (00:09)
[2021-10-06] MEDS ORDERED: LACT1CAP26 PO (00:18)
[2021-10-06] MEDS ORDERED: ASPI81TA52 PO (00:19)
[2021-10-06] MEDS ORDERED: OXYC-150 PO (00:57)
[2021-10-06] MEDS ORDERED: clonazePAM 0.5mg tablet PO PRN (01:10)
[2021-10-06] MEDS ORDERED: traZODone 50mg tablet PO PRN (01:10)
[2021-10-06] MEDS: oxyCODONE/APAP 10/325mg tablet PO PRN ×4 (01:53→20:18)
[2021-10-06] MEDS: ondansetron/PF 4mg/2ml inj IV PRN ×3 (03:09→20:18)
[2021-10-06 07:33] LABS: BASOPHILS % (AUTO) 0.4 % (0-1); EOSINOPHILS # (AUTO) 1.2 X10'3 (0-0.9); EOSINOPHILS % (AUTO) 16.8 % (0-6); HEMATOCRIT 24.6 % (42.0-52.0); HEMOGLOBIN 7.9 g/dl (14.0-17.9); LYMPHOCYTES # (AUTO) 1.9 X10'3 (1.1-4.8); LYMPHOCYTES % (AUTO) 26.4 % (21-51); MEAN CORPUSCULAR HEMOGLOBIN 22.4 PG (27.0-31.0); MEAN CORPUSCULAR HGB CONC 32.3 g/dL (33.0-36.5); MEAN CORPUSCULAR VOLUME 69.4 FL (78-98); MEAN PLATELET VOLUME 7.3 FL (7.4-10.4); MONOCYTES # (AUTO) 0.7 X10'3 (0-0.9); MONOCYTES % (AUTO) 10.1 % (2-12); NEUTROPHILS # (AUTO) 3.4 X10'3 (1.8-7.7); NEUTROPHILS % (AUTO) 46.3 % (42-75); PLATELET COUNT 218 X10'3 (140-440); RED BLOOD COUNT 3.54 X10'6 (4.70-6.10); RED CELL DISTRIBUTION WIDTH 17.9 % (11.5-14.5); WHITE BLOOD COUNT 7.3 X10'3 (4.5-11.0)
[2021-10-06] MEDS ORDERED: dutasteride 0.5 MG capsule PO SCH (08:00)
[2021-10-06] MEDS: K and/or MAG REPLACEMENT MC SCH ×2 (08:00→20:00)
[2021-10-06] MEDS ORDERED: vancomycin/NS 1 GM ADD-VANTAGE 250 ML IV SCH (08:00)
[2021-10-06 08:03] LABS: PLATELET ESTIMATE NORMAL
[2021-10-06 08:04] LABS: ANISOCYTOSIS 1+; MICROCYTOSIS 2+
[2021-10-06 08:05] LABS: ELLIPTOCYTES FEW
[2021-10-06 08:07] LABS: ALANINE AMINOTRANSFERASE 26 U/L (12-78); ALBUMIN 2.4 G/DL (3.4-5.0); ALBUMIN/GLOBULIN RATIO 0.7 (1.1-1.5); ALKALINE PHOSPHATASE 96 IU/L (46-116); ANION GAP 6 (8-16); ASPARTATE AMINO TRANSFERASE 23 U/L (10-37); BILIRUBIN,TOTAL 0.2 MG/DL (0.1-1.0); BLOOD UREA NITROGEN 26 MG/DL (7-18); BUN/CREATININE RATIO 23.4 (5.4-32.0); CALCIUM 7.9 MG/DL (8.5-10.1); CHLORIDE 107 MMOL/L (99-107); CREATININE 1.11 MG/DL (0.60-1.10); GLUCOSE 116 MG/DL (70-104); MAGNESIUM 2.3 MG/DL (1.5-2.4); POTASSIUM 4.7 MMOL/L (3.5-5.1); SODIUM 141 MMOL/L (135-145); TOTAL CARBON DIOXIDE 27.8 MMOL/L (24-32); TOTAL PROTEIN 5.9 G/DL (6.4-8.2); eGFR 66 ML/MIN
[2021-10-06 08:46] VITALS: BP 152/74
[2021-10-06] MEDS: lisinopril 10 MG tablet PO SCH (10:00)
[2021-10-06] MEDS: amiodarone 200mg tablet PO SCH ×2 (10:00→20:14)
[2021-10-06] MEDS: docusate sod 100mg capsule PO SCH ×2 (10:01→20:00)
[2021-10-06] MEDS: bumetanide 1mg tablet PO SCH (10:01)
[2021-10-06] MEDS: apixaban 5mg tablet PO SCH ×2 (10:01→20:17)
[2021-10-06] MEDS: carVEDilol 12.5mg tablet PO SCH ×2 (10:02→20:17)
[2021-10-06] MEDS: aspirin 81mg, enteric-coated 1 TAB TABLET.DR PO SCH (10:02)
[2021-10-06] MEDS: duloxetine 30mg CAPSULE.DR PO SCH (10:02)
[2021-10-06] MEDS: buPROPion SR 150mg tablet PO SCH (10:03)
[2021-10-06] MEDS: CefTRIAXone/D5W-Rocephin 1gm 50 ML IV SCH (10:45)
[2021-10-06 10:57] VITALS: BP 92/49
[2021-10-06] MEDS: fluconazole 100mg tablet PO SCH (12:23)
[2021-10-06] MEDS: mag hydrox/Alum hydrox/simeth 30ml oral suspension PO PRN ×2 (16:52→23:41)
--- NOTE | 2021-10-06 18:23 | NUR ---
Patient in room ORTHO 4010. I have received report from Lars POLK and had the opportunity to ask questions and assume patient care.
--- NOTE | 2021-10-06 18:23 | NUR ---
Problems reprioritized. Patient report given, questions answered & plan of care reviewed with Amanda POLK.
[2021-10-06 20:19] VITALS: BP 107/55
[2021-10-06] MEDS ORDERED: tamsulosin 0.4mg capsule PO SCH (21:00)
[2021-10-06] MEDS ORDERED: ROPINIRole 1mg tablet PO SCH (21:00)
[2021-10-06 22:00] VITALS: BP 103/81
[2021-10-07] MEDS: oxyCODONE/APAP 10/325mg tablet PO PRN ×4 (00:12→14:53)
[2021-10-07 06:19] LABS: BASOPHILS % (AUTO) 0.5 % (0-1); EOSINOPHILS # (AUTO) 1.1 X10'3 (0-0.9); EOSINOPHILS % (AUTO) 14.7 % (0-6); HEMATOCRIT 24.4 % (42.0-52.0); HEMOGLOBIN 7.9 g/dl (14.0-17.9); LYMPHOCYTES # (AUTO) 2.1 X10'3 (1.1-4.8); LYMPHOCYTES % (AUTO) 28.7 % (21-51); MEAN CORPUSCULAR HEMOGLOBIN 22.4 PG (27.0-31.0); MEAN CORPUSCULAR HGB CONC 32.5 g/dL (33.0-36.5); MEAN CORPUSCULAR VOLUME 68.9 FL (78-98); MEAN PLATELET VOLUME 7.5 FL (7.4-10.4); MONOCYTES # (AUTO) 0.8 X10'3 (0-0.9); MONOCYTES % (AUTO) 10.3 % (2-12); NEUTROPHILS # (AUTO) 3.4 X10'3 (1.8-7.7); NEUTROPHILS % (AUTO) 45.8 % (42-75); PLATELET COUNT 219 X10'3 (140-440); RED BLOOD COUNT 3.55 X10'6 (4.70-6.10); RED CELL DISTRIBUTION WIDTH 18.2 % (11.5-14.5); WHITE BLOOD COUNT 7.4 X10'3 (4.5-11.0)
--- NOTE | 2021-10-07 06:28 | NUR ---
Problems reprioritized. Patient report given, questions answered & plan of care reviewed with Aracely POLK.
[2021-10-07 06:51] LABS: ALANINE AMINOTRANSFERASE 21 U/L (12-78); ALBUMIN 2.3 G/DL (3.4-5.0); ALBUMIN/GLOBULIN RATIO 0.6 (1.1-1.5); ALKALINE PHOSPHATASE 92 IU/L (46-116); ANION GAP 6 (8-16); ASPARTATE AMINO TRANSFERASE 19 U/L (10-37); BILIRUBIN,TOTAL 0.1 MG/DL (0.1-1.0); BLOOD UREA NITROGEN 16 MG/DL (7-18); BUN/CREATININE RATIO 17.4 (5.4-32.0); CHLORIDE 104 MMOL/L (99-107); CREATININE 0.92 MG/DL (0.60-1.10); GLUCOSE 101 MG/DL (70-104); MAGNESIUM 2.1 MG/DL (1.5-2.4); POTASSIUM 4.3 MMOL/L (3.5-5.1); SODIUM 141 MMOL/L (135-145); TOTAL PROTEIN 5.9 G/DL (6.4-8.2); eGFR 82 ML/MIN
[2021-10-07 07:10] VITALS: BP 94/54
[2021-10-07] MEDS: docusate sod 100mg capsule PO SCH (07:48)
[2021-10-07] MEDS: duloxetine 30mg CAPSULE.DR PO SCH (07:48)
[2021-10-07] MEDS: aspirin 81mg, enteric-coated 1 TAB TABLET.DR PO SCH (07:48)
[2021-10-07] MEDS: CefTRIAXone/D5W-Rocephin 1gm 50 ML IV SCH (07:48)
[2021-10-07] MEDS: fluconazole 100mg tablet PO SCH (07:48)
[2021-10-07] MEDS: bumetanide 1mg tablet PO SCH (07:48)
[2021-10-07] MEDS: buPROPion SR 150mg tablet PO SCH (07:48)
[2021-10-07] MEDS: apixaban 5mg tablet PO SCH (07:48)
[2021-10-07] MEDS: amiodarone 200mg tablet PO SCH (07:48)
[2021-10-07] MEDS: lisinopril 10 MG tablet PO SCH (07:49)
[2021-10-07] MEDS: carVEDilol 12.5mg tablet PO SCH (07:49)
[2021-10-07] MEDS: K and/or MAG REPLACEMENT MC SCH (07:49)
[2021-10-07 07:57] LABS: ANISOCYTOSIS 2+; ELLIPTOCYTES 1+; HYPOCHROMASIA 1+; MICROCYTOSIS 2+; PLATELET ESTIMATE NORMAL
[2021-10-07 10:00] VITALS: BP 107/58
[2021-10-07] MEDS: ondansetron/PF 4mg/2ml inj IV PRN (11:00)
[2021-10-07] MEDS ORDERED: VANC5VIA PO (13:31)
[2021-10-07] MEDS ORDERED: HYDR12.55 PO (13:32)
[2021-10-07] MEDS ORDERED: vancomycin 125mg/5ml ORAL solution 5ml UD oral syringe PO SCH (14:00)
--- NOTE | 2021-10-07 15:22 | NUR ---
Patient stable and appropriate for discharge home with SO. IV removed. Reyes catheter in place patent/draining. Reyes catheter care explained and demonstrated for patient. Discharge instructions and education given and reviewed with patient, all questions answered. Verbalized understanding of all. New RX e-scripted to preferred pharmacy, next due doses of all medications written down for patient.
[2021-10-08] MEDS ORDERED: vitamin A & D ointment-NF 1 APPLIC TUBE TP SCH (08:00)
--- NOTE | 2021-10-13 13:14 | NUR ---
Case Management DC follow up: Left VM with name, telephone number, and reason for call.
--- NOTE | 2021-10-15 08:42 | NUR ---
Case Management DC follow up:Late Entry:Spoke with Patient via telephone 10/13/21. S/P: Patient Reports: Denies Acute/continuous CP, emergent SOB, resp distress, dyspnea.Verbalizes he has nausea; however, has taken Zofran and not had any episode of vomiting.Denies: Vertigo, and/or syncope episodes, orthostatic hypotension, ZAYAS, blurry vision, s/s of stroke/BE-FAST.Verbalizes he has had a fleeting episode of dizziness.Denies dysuria, hematuria, retention, abdominal pain/distention, hematochezia, melena, unexplained bruising, bleeding, fever, chills.Verbalizes he went to 's office 10/12/21 and had his Reyes catheter removed; again denying any problem voiding.Verbalizes he feels shaky, weak and very tired.When asked ,Patient verbalizes he has not had anything to eat.Verbalizes he has taken his regular medications including pain medication and Zofran.Asked Patient at this time if he has been taking his Vancomycin.Patient verbalizes he has not picked up his new medication because he was told the order was unclear; therefore, not available.I telephoned Lacey and spoke with the Pharmacist regarding Patients prescriptions.Pharmacist verbalizes they had received clarification on order; prescriptions filled and waiting for pickup since yesterday. Cost of Vancomycin is one hundred and three dollars, and cost of his hydrochlorothiazide one dollar.Pharmacist agreed to call ,Patient's PCP, and work on a way to get leal of vancomycin decreased.Telephoned Patient and apprised him the prescriptions have been filled, and the cost of medications.Patient verbalizes he will pick the medications up.Denies any bouts of diarrhea.Verbalizes he has not seen home health nurse yet, but has spoken with Desmond Hartley via telephone.Reiterated to Patient to eat, monitor his blood pressure, and have Home health nurse draw his labs for C.M.P. , and bulk picker his medication.Patient complained of an increase in edema at lower extremities ; encouraged him to wear his TANI hose, and keep his legs elevated, after he picks up his new prescriptions.Verbalizes understanding of s/s that warrant a 9-11/ER visit for further evaluation.Verbalizes need for follow up appointment with JANAE Escobar.No complaints regarding care in hospital.Needs met, questions/concerns addressed at DC.No further questions/concerns regarding recent hospital stay and/or DC status at this time.
== END 2021-10-07 15:20 | disposition home health service (06) | DRG 602 ==
LOC: ER 16:46 → ED HOLD 23:13 → EDBEDREQ 10-06 03:31 → ORTHO 4S 10-06 07:50
PROVIDERS: ADMIT Internal Medicine; ATTEND Internal Medicine
DX: L03.116 Cellulitis of left lower limb (principal); N17.0 Acute kidney failure with tubular necrosis; A04.72 Enterocolitis due to Clostridium difficile, not specified as recurrent; I48.20 Chronic atrial fibrillation, unspecified; N17.9 Acute kidney failure, unspecified; I50.32 Chronic diastolic (congestive) heart failure; M87.88 Other osteonecrosis, other site; L03.115 Cellulitis of right lower limb; J44.9 Chronic obstructive pulmonary disease, unspecified; N13.9 Obstructive and reflux uropathy, unspecified; E78.00 Pure hypercholesterolemia, unspecified; G47.33 Obstructive sleep apnea (adult) (pediatric); D64.9 Anemia, unspecified; E66.9 Obesity, unspecified; Z20.822 Contact with and (suspected) exposure to COVID-19; Z96.643 Presence of artificial hip joint, bilateral; I11.0 Hypertensive heart disease with heart failure; F41.1 Generalized anxiety disorder; I87.2 Venous insufficiency (chronic) (peripheral); R13.10 Dysphagia, unspecified; Z80.0 Family history of malignant neoplasm of digestive organs; Z82.5 Family history of asthma and other chronic lower respiratory diseases; Z86.73 Personal history of transient ischemic attack (TIA), and cerebral infarction without residual deficits; Z88.7 Allergy status to serum and vaccine; Z79.899 Other long term (current) drug therapy; Z68.34 Body mass index [BMI] 34.0-34.9, adult
CPT/HCPCS: 36415; 71045; 80053; 81001; 83605; 83735; 83880; 84132; 84145; 84484; 85008; 85025; 87040; 87081; 87635; 93005; 97110; 97116; 97162; 99285; A4314; A4615; A6213; A6250; A6449; C9803; G0378; J0692; J0696; J2405; J7120

== ENCOUNTER 2021-10-19 00:33 | Emergency (ER) | payer MEDICARE ==
[~2021-10-19] VITALS: Ht 190.5 cm; Wt 127.3 kg
[~2021-10-19 00:33] MED LIST changes: -ASPI-1071 PO; +ASPI81TA52 PO; +BUME2TAB7 PO; -CLIN-97 PO; +FLUC100T64 PO; +HYDR12.55 PO; +OXYC-150 PO; +VANC5VIA PO
[2021-10-19] MEDS ORDERED: ondansetron 4mg rapidly disintigrating tab PO ONE (02:10)
[2021-10-19 02:18] LABS: BASOPHILS # (AUTO) 0.2 X10'3 (0-0.2); BASOPHILS % (AUTO) 1.3 % (0-1); EOSINOPHILS # (AUTO) 0.3 X10'3 (0-0.9); EOSINOPHILS % (AUTO) 2.4 % (0-6); HEMATOCRIT 28.8 % (42.0-52.0); HEMOGLOBIN 9.2 g/dl (14.0-17.9); LYMPHOCYTES # (AUTO) 3.9 X10'3 (1.1-4.8); LYMPHOCYTES % (AUTO) 28.5 % (21-51); MEAN CORPUSCULAR HEMOGLOBIN 21.3 PG (27.0-31.0); MEAN CORPUSCULAR HGB CONC 31.9 g/dL (33.0-36.5); MEAN CORPUSCULAR VOLUME 66.8 FL (78-98); MEAN PLATELET VOLUME 7.5 FL (7.4-10.4); MONOCYTES # (AUTO) 1.2 X10'3 (0-0.9); NEUTROPHILS # (AUTO) 8.1 X10'3 (1.8-7.7); NEUTROPHILS % (AUTO) 58.8 % (42-75); PLATELET COUNT 543 X10'3 (140-440); RED BLOOD COUNT 4.31 X10'6 (4.70-6.10); RED CELL DISTRIBUTION WIDTH 17.7 % (11.5-14.5); WHITE BLOOD COUNT 13.7 X10'3 (4.5-11.0)
[2021-10-19 02:34] LABS: ALANINE AMINOTRANSFERASE 19 U/L (12-78); ALBUMIN 3.4 G/DL (3.4-5.0); ALBUMIN/GLOBULIN RATIO 0.9 (1.1-1.5); ALKALINE PHOSPHATASE 126 IU/L (46-116); ANION GAP 11 (8-16); ASPARTATE AMINO TRANSFERASE 18 U/L (10-37); BILIRUBIN,TOTAL 0.2 MG/DL (0.1-1.0); BLOOD UREA NITROGEN 12 MG/DL (7-18); BUN/CREATININE RATIO 11.2 (5.4-32.0); CALCIUM 8.8 MG/DL (8.5-10.1); CHLORIDE 102 MMOL/L (99-107); CREATININE 1.07 MG/DL (0.60-1.10); GLUCOSE 111 MG/DL (70-104); LIPASE < 50 U/L (73-393); POTASSIUM 4.2 MMOL/L (3.5-5.1); SODIUM 140 MMOL/L (135-145); TOTAL PROTEIN 7.2 G/DL (6.4-8.2); eGFR 69 ML/MIN
[2021-10-19 02:49] LABS: PLATELET ESTIMATE NORMAL
[2021-10-19 02:50] LABS: ANISOCYTOSIS 2+; ELLIPTOCYTES 1+; HYPOCHROMASIA 2+; MICROCYTOSIS 2+
[2021-10-19] MEDS ORDERED: POTA-207 PO (02:55)
[2021-10-19] MEDS ORDERED: FURO20TA4 PO (02:55)
[2021-10-19] MEDS ORDERED: furosemide 20MG tablet PO ONE (02:55)
[2021-10-19] MEDS ORDERED: ONDA4TAB12 PO (02:55)
[2021-10-19 03:19] VITALS: BP 129/79
== END 2021-10-19 03:23 | disposition home or self-care (01) ==
LOC: ER 00:34
DX: L03.116 Cellulitis of left lower limb (principal); L03.115 Cellulitis of right lower limb; R22.43 Localized swelling, mass and lump, lower limb, bilateral; I11.0 Hypertensive heart disease with heart failure; I50.9 Heart failure, unspecified; J44.9 Chronic obstructive pulmonary disease, unspecified; Z88.7 Allergy status to serum and vaccine
CPT/HCPCS: 36415; 80053; 83690; 84145; 85008; 85025; 99284

== ENCOUNTER 2021-10-26 00:40 | Emergency (ER) | payer MEDICARE ==
[~2021-10-26] VITALS: Ht 188 cm; Wt 129.6 kg
[~2021-10-26 00:40] MED LIST changes: +FURO20TA4 PO; +ONDA4TAB12 PO; +POTA-207 PO
[2021-10-26] MEDS ORDERED: furosemide 40mg/4ml inj IV ONE (01:00)
[2021-10-26 01:24] LABS: BASOPHILS # (AUTO) 0.1 X10'3 (0-0.2); BASOPHILS % (AUTO) 1.3 % (0-1); EOSINOPHILS # (AUTO) 0.4 X10'3 (0-0.9); EOSINOPHILS % (AUTO) 4.5 % (0-6); HEMATOCRIT 27.1 % (42.0-52.0); HEMOGLOBIN 8.7 g/dl (14.0-17.9); LYMPHOCYTES # (AUTO) 2.2 X10'3 (1.1-4.8); LYMPHOCYTES % (AUTO) 22.7 % (21-51); MEAN CORPUSCULAR HEMOGLOBIN 21.3 PG (27.0-31.0); MEAN CORPUSCULAR HGB CONC 32.2 g/dL (33.0-36.5); MEAN CORPUSCULAR VOLUME 66.2 FL (78-98); MEAN PLATELET VOLUME 7.7 FL (7.4-10.4); MONOCYTES % (AUTO) 9.9 % (2-12); NEUTROPHILS # (AUTO) 6.1 X10'3 (1.8-7.7); NEUTROPHILS % (AUTO) 61.6 % (42-75); PLATELET COUNT 463 X10'3 (140-440); RED BLOOD COUNT 4.09 X10'6 (4.70-6.10); RED CELL DISTRIBUTION WIDTH 17.8 % (11.5-14.5); WHITE BLOOD COUNT 9.9 X10'3 (4.5-11.0)
[2021-10-26 01:36] LABS: ALANINE AMINOTRANSFERASE 17 U/L (12-78); ALBUMIN 3.3 G/DL (3.4-5.0); ALKALINE PHOSPHATASE 116 IU/L (46-116); ANION GAP 11 (8-16); ASPARTATE AMINO TRANSFERASE 19 U/L (10-37); BILIRUBIN,TOTAL 0.4 MG/DL (0.1-1.0); BLOOD UREA NITROGEN 13 MG/DL (7-18); BUN/CREATININE RATIO 13.1 (5.4-32.0); CHLORIDE 103 MMOL/L (99-107); CREATININE 0.99 MG/DL (0.60-1.10); GLUCOSE 139 MG/DL (70-104); POTASSIUM 3.3 MMOL/L (3.5-5.1); SODIUM 140 MMOL/L (135-145); TOTAL PROTEIN 6.6 G/DL (6.4-8.2); eGFR 76 ML/MIN
[2021-10-26 02:43] VITALS: BP 100/60
[2021-10-26 03:15] LABS: ANISOCYTOSIS 1+; ELLIPTOCYTES 1+; MICROCYTOSIS 2+; PLATELET ESTIMATE INCREASED; STOMATOCYTES FEW; TEAR DROP CELLS FEW
== END 2021-10-26 02:54 | disposition home or self-care (01) ==
LOC: ER 00:41
DX: K59.00 Constipation, unspecified (principal); M79.89 Other specified soft tissue disorders; R06.02 Shortness of breath; I48.91 Unspecified atrial fibrillation; I11.0 Hypertensive heart disease with heart failure; I50.9 Heart failure, unspecified; E78.00 Pure hypercholesterolemia, unspecified; J44.9 Chronic obstructive pulmonary disease, unspecified; F41.9 Anxiety disorder, unspecified; Z86.73 Personal history of transient ischemic attack (TIA), and cerebral infarction without residual deficits; Z72.89 Other problems related to lifestyle; Z88.7 Allergy status to serum and vaccine; Z79.82 Long term (current) use of aspirin; Z79.2 Long term (current) use of antibiotics; Z79.899 Other long term (current) drug therapy
CPT/HCPCS: 36415; 71045; 73564; 80053; 83880; 85008; 85025; 93005; 96374; 99285; J1940

== ENCOUNTER 2022-07-22 00:32 | Emergency (ER) | payer MEDICARE ==
[~2022-07-22] VITALS: Ht 188 cm; Wt 126.8 kg
[~2022-07-22 00:32] MED LIST changes: -AMIO200T61 PO; +BACL10TA PO; -BUME2TAB7 PO; -BUPR8TAB4 SL; +CETI10TA14 PO; -CYCL-1 PO; -DUTA0.5C36 PO; +FAMO20TA8 PO; +FERR325T7 PO; +FINA5TAB11 PO; -FLUC100T64 PO; -FURO20TA4 PO; -HYDR12.55 PO; -LACT1CAP26 PO; -LISI20TA28 PO; +LOSA25TA41 PO; +MAGN400T56 PO; +NITR0.4T48 SL; -ONDA4TAB12 PO; -OXYC1TAB17 PO; -PANT40TA54 PO; -POTA-207 PO; +POTA-366 PO; +PRAZ1CAP5 PO; +PREG100C55 PO; -TRAZ-256 PO; -VANC5VIA PO
[2022-07-22] MEDS ORDERED: ATRNS BOTHNARES (01:01)
[2022-07-22] MEDS ORDERED: DULO30CA52 PO (01:01)
[2022-07-22] MEDS ORDERED: DILT180C76 PO (01:01)
[2022-07-22] MEDS ORDERED: PANT40TA54 PO (01:04)
[2022-07-22] MEDS ORDERED: OXYC1TAB17 PO (01:04)
[2022-07-22] MEDS ORDERED: DUTA0.5C36 PO (01:04)
[2022-07-22] MEDS ORDERED: LACT1CAP65 PO (01:08)
[2022-07-22] MEDS ORDERED: FLUO10CA28 PO (01:08)
[2022-07-22] MEDS ORDERED: PLEC3TAB2 PO (01:08)
[2022-07-22] MEDS ORDERED: DULO-31 PO (01:08)
[2022-07-22] MEDS ORDERED: CARV-50 PO (01:08)
[2022-07-22] MEDS ORDERED: LUBI8CAP PO (01:08)
[2022-07-22] MEDS ORDERED: CARB100C9 PO (01:08)
[2022-07-22 01:39] LABS: BASOPHILS # (AUTO) 0.1 X10'3 (0-0.2); BASOPHILS % (AUTO) 1.1 % (0-1); EOSINOPHILS # (AUTO) 0.4 X10'3 (0-0.9); EOSINOPHILS % (AUTO) 4.4 % (0-6); HEMATOCRIT 36.5 % (42.0-52.0); HEMOGLOBIN 12.1 g/dl (14.0-17.9); LYMPHOCYTES # (AUTO) 2.4 X10'3 (1.1-4.8); LYMPHOCYTES % (AUTO) 24.4 % (21-51); MEAN CORPUSCULAR HEMOGLOBIN 28.3 PG (27.0-31.0); MEAN CORPUSCULAR HGB CONC 33.3 g/dL (33.0-36.5); MEAN CORPUSCULAR VOLUME 85.1 FL (78-98); MEAN PLATELET VOLUME 7.4 FL (7.4-10.4); MONOCYTES # (AUTO) 1.1 X10'3 (0-0.9); NEUTROPHILS # (AUTO) 5.7 X10'3 (1.8-7.7); NEUTROPHILS % (AUTO) 59.1 % (42-75); PLATELET COUNT 266 X10'3 (140-440); RED BLOOD COUNT 4.29 X10'6 (4.70-6.10); RED CELL DISTRIBUTION WIDTH 15.3 % (11.5-14.5); WHITE BLOOD COUNT 9.7 X10'3 (4.5-11.0)
[2022-07-22 01:49] LABS: ALANINE AMINOTRANSFERASE 17 U/L (12-78); ALBUMIN 3.5 G/DL (3.4-5.0); ALBUMIN/GLOBULIN RATIO 1.2 (1.1-1.5); ALKALINE PHOSPHATASE 119 IU/L (46-116); ANION GAP 7 (8-16); ASPARTATE AMINO TRANSFERASE 16 U/L (10-37); BILIRUBIN,TOTAL 0.2 MG/DL (0.1-1.0); BLOOD UREA NITROGEN 17 MG/DL (7-18); BUN/CREATININE RATIO 21.5 (10.0-20.0); CALCIUM 8.7 MG/DL (8.5-10.1); CHLORIDE 105 MMOL/L (99-107); CREATINE KINASE 104 U/L (39-308); CREATININE 0.79 MG/DL (0.60-1.10); GLUCOSE 132 MG/DL (70-104); PHOSPHORUS 3.4 MG/DL (2.3-4.5); POTASSIUM 3.9 MMOL/L (3.5-5.1); SODIUM 141 MMOL/L (135-145); TOTAL CARBON DIOXIDE 29.3 MMOL/L (24-32); TOTAL PROTEIN 6.4 G/DL (6.4-8.2); eGFR > 90 ML/MIN
[2022-07-22] MEDS ORDERED: morphine 4 MG/ML inj SYRINge IV ONE (02:05)
[2022-07-22] MEDS ORDERED: ketorolac trometh. 30mg/ml inj. IV ONE (02:05)
[2022-07-22] MEDS ORDERED: normal saline 1000ml 1,000 ML IV ONE (02:05)
[2022-07-22] MEDS ORDERED: magnesium 2GM in 50ml NS 50 ML IV ONE (02:05)
[2022-07-22] MEDS ORDERED: acetaminophen 325mg tablet PO ONE (02:05)
--- NOTE | 2022-07-22 02:35 | NUR ---
pt declines NS fliuds and tylenol at this time. dr rivera notified
[2022-07-22 04:13] VITALS: BP 144/87
== END 2022-07-22 04:14 | disposition home or self-care (01) ==
LOC: ER 00:33
DX: G89.29 Other chronic pain (principal); M79.604 Pain in right leg; M79.605 Pain in left leg; I11.0 Hypertensive heart disease with heart failure; I10 Essential (primary) hypertension; J44.9 Chronic obstructive pulmonary disease, unspecified; F41.9 Anxiety disorder, unspecified; E78.00 Pure hypercholesterolemia, unspecified; Z88.5 Allergy status to narcotic agent; Z88.6 Allergy status to analgesic agent; Z79.899 Other long term (current) drug therapy; Z88.8 Allergy status to other drugs, medicaments and biological substances
CPT/HCPCS: 36415; 80053; 82550; 83735; 84100; 85025; 96365; 96375; 99284; J1885; J2270; J3475

== ENCOUNTER 2024-04-01 00:59 | Inpatient (IN) | payer MEDICARE ==
[~2024-04-01] VITALS: Ht 185.4 cm; Wt 34.4 kg
[~2024-04-01 00:59] MED LIST changes: -APIX5TAB3 PO; -BACL10TA PO; -BUPR-317 PO; +BUPR-561 PO; +CARB100C9 PO; +CARV-50 PO; -CARV25TA2 PO; -CETI10TA14 PO; +DILT180C76 PO; +DULO-31 PO; -DULO60CA65 PO; +DUTA0.5C36 PO; -FAMO20TA8 PO; +FLUO10CA28 PO; +LACT1CAP65 PO; -LOSA25TA41 PO; +LUBI8CAP PO; -NITR0.4T48 SL; -OXYC-150 PO; +OXYC1TAB17 PO; +PANT40TA54 PO; +PLEC3TAB2 PO; -PRAZ1CAP5 PO; -PREG100C55 PO; +PREG100C56 PO; -ROPI0.5T4 PO
[2024-04-01] MEDS ORDERED: potassium Cl 20 mEq SR tablet PO PRN (02:50)
[2024-04-01] MEDS ORDERED: HYDROcodone/acetaminophen 5mg/325mg tablet PO PRN (02:50)
[2024-04-01] MEDS ORDERED: magnesium sulf-water 4G/100mL 100 ML IV PRN (02:50)
[2024-04-01] MEDS ORDERED: potassium Cl 40MEQ/1/2NS 520ml 520 ML IV PRN (02:50)
[2024-04-01] MEDS ORDERED: magnesium Cl slow-release 64mg tablet PO PRN (02:50)
[2024-04-01] MEDS ORDERED: magnesium sulf-water 2g/50mL 50 ML IV PRN (02:50)
[2024-04-01] MEDS ORDERED: acetaminophen 325mg tablet PO PRN (02:50)
[2024-04-01 03:16] LABS: BASOPHILS # (AUTO) 0.1 X10'3 (0-0.2); BASOPHILS % (AUTO) 0.8 % (0-1); EOSINOPHILS # (AUTO) 0.2 X10'3 (0-0.9); EOSINOPHILS % (AUTO) 1.3 % (0-6); HEMATOCRIT 26.5 % (42.0-52.0); HEMOGLOBIN 8.6 g/dl (14.0-17.9); LYMPHOCYTES # (AUTO) 1.7 X10'3 (1.1-4.8); LYMPHOCYTES % (AUTO) 14.4 % (21-51); MEAN CORPUSCULAR HEMOGLOBIN 23.7 PG (27.0-31.0); MEAN CORPUSCULAR HGB CONC 32.4 g/dL (33.0-36.5); MEAN PLATELET VOLUME 7.4 FL (7.4-10.4); MONOCYTES % (AUTO) 8.1 % (2-12); NEUTROPHILS % (AUTO) 75.4 % (42-75); PLATELET COUNT 280 X10'3 (140-440); RED BLOOD COUNT 3.63 X10'6 (4.70-6.10)
[2024-04-01 03:27] LABS: ANION GAP 4 (8-16); BLOOD UREA NITROGEN 16 MG/DL (7-18); BUN/CREATININE RATIO 21.9 (10.0-20.0); CALCIUM 8.4 MG/DL (8.5-10.1); CHLORIDE 106 MMOL/L (99-107); CREATININE 0.73 MG/DL (0.60-1.10); GLUCOSE 123 MG/DL (70-104); MAGNESIUM 1.6 MG/DL (1.5-2.4); SODIUM 142 MMOL/L (135-145); TOTAL CARBON DIOXIDE 31.9 MMOL/L (24-32); eCRCL 109 ML/MIN; eGFR > 90 ML/MIN
[2024-04-01] MEDS: normal saline 1000ml 1,000 ML IV SCH (03:56)
[2024-04-01] MEDS: CefTRIAXone/D5W-Rocephin 1gm 50 ML IV SCH (03:57)
[2024-04-01 04:42] LABS: APTT 27 SECONDS (22-32); HEMOGLOBIN A1C 6.1 % (4.5-6.2); PROTHROMBIN TIME 10.7 SECONDS (9.0-12.0)
[2024-04-01] MEDS: potassium Cl 20 mEq SR tablet PO PRN (04:56)
[2024-04-01] MEDS: HYDROcodone/acetaminophen 10/325mg tab PO PRN (04:59)
[2024-04-01 05:34] LABS: HEMATOCRIT 23.9 % (42.0-52.0); HEMOGLOBIN 7.8 g/dl (14.0-17.9); MEAN CORPUSCULAR HEMOGLOBIN 24.1 PG (27.0-31.0); MEAN CORPUSCULAR HGB CONC 32.8 g/dL (33.0-36.5); MEAN CORPUSCULAR VOLUME 73.6 FL (78-98); PLATELET COUNT 268 X10'3 (140-440); RED BLOOD COUNT 3.24 X10'6 (4.70-6.10); RED CELL DISTRIBUTION WIDTH 17.9 % (11.5-14.5); WHITE BLOOD COUNT 9.7 X10'3 (4.5-11.0)
[2024-04-01] MEDS: K and/or MAG REPLACEMENT MC SCH (08:00)
[2024-04-01] MEDS: pantoprazole 40 MG vial IV SCH ×2 (08:00→10:07)
[2024-04-01] MEDS ORDERED: DULO-31 PO (08:53)
[2024-04-01] MEDS ORDERED: LINA145C PO (08:53)
[2024-04-01] MEDS ORDERED: BUPR8TAB4 SL (08:53)
[2024-04-01] MEDS ORDERED: DRY EYE EACHEYE (08:55)
[2024-04-01] MEDS ORDERED: ELQUIS PO (09:09)
[2024-04-01] MEDS ORDERED: eliquis PO (09:10)
[2024-04-01 09:34] LABS: ALANINE AMINOTRANSFERASE 13 U/L (12-78); ALBUMIN 2.9 G/DL (3.4-5.0); ALBUMIN/GLOBULIN RATIO 0.9 (1.1-1.5); ALKALINE PHOSPHATASE 124 IU/L (46-116); ANION GAP 6 (8-16); ASPARTATE AMINO TRANSFERASE 9 U/L (10-37); BILIRUBIN,TOTAL 0.3 MG/DL (0.1-1.0); BLOOD UREA NITROGEN 13 MG/DL (7-18); CALCIUM 8.6 MG/DL (8.5-10.1); CHLORIDE 108 MMOL/L (99-107); CREATININE 0.62 MG/DL (0.60-1.10); GLUCOSE 115 MG/DL (70-104); POTASSIUM 3.2 MMOL/L (3.5-5.1); SODIUM 145 MMOL/L (135-145); TOTAL CARBON DIOXIDE 31.5 MMOL/L (24-32); TOTAL PROTEIN 6.3 G/DL (6.4-8.2); eCRCL 129 ML/MIN; eGFR > 90 ML/MIN
[2024-04-01 09:36] LABS: IRON 14 UG/DL (53-167)
[2024-04-01] MEDS: docusate sod 100mg capsule PO SCH (10:03)
[2024-04-01] MEDS: lactobacillus rhamnosus 10,000 MMU CELLS/CAPSULE PO SCH (10:03)
[2024-04-01] MEDS: FLU VACC TS2024-25(6MOS UP)/PF 45 MCG/0.5 ML SYRINGE IMVAC ONE (10:08)
[2024-04-01] MEDS: ondansetron/PF 4mg/2ml inj IV PRN (10:13)
[2024-04-01 12:14] VITALS: BP 146/79; PULSE 83; RESP 16; TEMP 97.4; O2SAT 97
[2024-04-01 12:15] VITALS: RESP 16; O2SAT 97
[2024-04-01 13:41] LABS: FERRITIN 12 NG/ML (26-388)
[2024-04-01 18:00] VITALS: BP 144/68; PULSE 85; RESP 16; TEMP 98.4; O2SAT 95
[2024-04-01] MEDS: iron dextran complex inj. 25 MG in normal saline 50ml IV soln 100 ML IV STA (19:04)
[2024-04-01] MEDS: potassium Cl 20 mEq SR tablet PO STA (19:31)
[2024-04-01] MEDS ORDERED: iohexol 300mg/ml 100ml inj. ONE (19:39)
[2024-04-01] MEDS: POTASSIUM CHLORIDE 20 MEQ/15 ML oral solution PO ONE (19:41)
[2024-04-01 19:57] LABS: HEMOGLOBIN 7.8 g/dl (14.0-17.9); MEAN CORPUSCULAR HEMOGLOBIN 23.6 PG (27.0-31.0); MEAN CORPUSCULAR HGB CONC 32.5 g/dL (33.0-36.5); MEAN CORPUSCULAR VOLUME 72.7 FL (78-98); MEAN PLATELET VOLUME 7.4 FL (7.4-10.4); PLATELET COUNT 276 X10'3 (140-440); RED CELL DISTRIBUTION WIDTH 17.8 % (11.5-14.5); WHITE BLOOD COUNT 9.1 X10'3 (4.5-11.0)
[2024-04-01 20:00] VITALS: RESP 16; O2SAT 94
[2024-04-01] MEDS: iron dextran complex inj. 75 MG in normal saline 100ml IV soln 100 ML IV ONE (20:45)
[2024-04-01] MEDS: magnesium hydroxide 30ml (MOM) UD suspension PO PRN (20:50)
[2024-04-01 22:00] VITALS: BP 166/75; PULSE 95; RESP 18; TEMP 97.5; O2SAT 99
[2024-04-01 23:19] LABS: OCCULT BLOOD STOOL NEGATIVE (Neg)
[2024-04-02] VITALS (30 sets, daily range): BP systolic 138–180; BP diastolic 73–104; PULSE 72–108; RESP 11–18; TEMP 97–98.2; O2SAT 92–100
[2024-04-02 06:12] LABS: BASOPHILS # (AUTO) 0.1 X10'3 (0-0.2); BASOPHILS % (AUTO) 0.6 % (0-1); EOSINOPHILS # (AUTO) 0.3 X10'3 (0-0.9); EOSINOPHILS % (AUTO) 2.8 % (0-6); HEMATOCRIT 24.6 % (42.0-52.0); HEMOGLOBIN 8.3 g/dl (14.0-17.9); LYMPHOCYTES # (AUTO) 2.4 X10'3 (1.1-4.8); LYMPHOCYTES % (AUTO) 24.5 % (21-51); MEAN CORPUSCULAR HEMOGLOBIN 24.3 PG (27.0-31.0); MEAN CORPUSCULAR HGB CONC 33.5 g/dL (33.0-36.5); MEAN CORPUSCULAR VOLUME 72.6 FL (78-98); MEAN PLATELET VOLUME 7.8 FL (7.4-10.4); MONOCYTES # (AUTO) 0.9 X10'3 (0-0.9); MONOCYTES % (AUTO) 9.5 % (2-12); NEUTROPHILS # (AUTO) 6.1 X10'3 (1.8-7.7); NEUTROPHILS % (AUTO) 62.6 % (42-75); PLATELET COUNT 295 X10'3 (140-440); RED BLOOD COUNT 3.39 X10'6 (4.70-6.10); WHITE BLOOD COUNT 9.8 X10'3 (4.5-11.0)
[2024-04-02 06:25] LABS: ALANINE AMINOTRANSFERASE 10 U/L (12-78); ALBUMIN 2.7 G/DL (3.4-5.0); ALBUMIN/GLOBULIN RATIO 0.8 (1.1-1.5); ALKALINE PHOSPHATASE 114 IU/L (46-116); ANION GAP 4 (8-16); ASPARTATE AMINO TRANSFERASE 13 U/L (10-37); BILIRUBIN,TOTAL 0.3 MG/DL (0.1-1.0); BLOOD UREA NITROGEN 7 MG/DL (7-18); BUN/CREATININE RATIO 10.8 (10.0-20.0); CALCIUM 8.4 MG/DL (8.5-10.1); CHLORIDE 106 MMOL/L (99-107); CREATININE 0.65 MG/DL (0.60-1.10); GLUCOSE 93 MG/DL (70-104); LIPASE 13 U/L (16-77); MAGNESIUM 1.8 MG/DL (1.5-2.4); POTASSIUM 4.1 MMOL/L (3.5-5.1); SODIUM 140 MMOL/L (135-145); TOTAL CARBON DIOXIDE 30.4 MMOL/L (24-32); eCRCL 123 ML/MIN; eGFR > 90 ML/MIN
[2024-04-02] MEDS: iron dextran complex inj. 100 MG in normal saline 100ml IV soln 100 ML IV SCH (08:00)
[2024-04-02] MEDS ORDERED: BUPRENORPHINE 8 MG SL PRN (12:15)
[2024-04-02] MEDS ORDERED: doxycycline inj 100 MG in normal saline 100ml IV soln 100 ML IV SCH (12:20)
[2024-04-02] MEDS: tamsulosin 0.4mg capsule PO SCH (13:12)
[2024-04-02] MEDS: BUPROPION HCL 150MG XL 24 HR 150 MG TAB PO SCH (13:13)
[2024-04-02] MEDS: diltiazem CD 180mg cap (once-daily) PO SCH (13:14)
[2024-04-02] MEDS: FLUoxetine 10mg capsule PO SCH (13:14)
[2024-04-02] MEDS: morphine 2 MG/ML inj. syringe IV PRN ×2 (15:15→19:39)
[2024-04-02] MEDS ORDERED: ringers solution, lacted 1,000 ML IV ONE (15:35)
[2024-04-02] MEDS ORDERED: mupirocin 2% ointment 22GM ONE (16:51)
[2024-04-02] MEDS ORDERED: BUPIVAcaine/PF 2.5mg/ml (0.25%) 10ml vial ONE (16:52)
[2024-04-02] MEDS ORDERED: bacitracin 15gm ointment TP ONE (16:56)
[2024-04-02] MEDS ORDERED: ringers solution, lacted 1,000 ML IV SCH (17:10)
[2024-04-02] MEDS ORDERED: meperidine/PF 25mg/ml syringe IV PRN (17:10)
[2024-04-02] MEDS ORDERED: proCHLORperazine 10 MG/2 ml inj IV PRN (17:10)
[2024-04-02] MEDS ORDERED: fentaNYL/PF 50MCG/1 ML 2ML syringe ONE (17:32)
[2024-04-02] MEDS ORDERED: sevoflurane 250ml liquid IH ONE (17:51)
[2024-04-02] MEDS: lactose-reduced food (Ensure Enlive) - 237ml bottle PO SCH (18:00)
[2024-04-02] MEDS ORDERED: propofol inj 20 ML IV ONE ×2 (18:23→18:24)
[2024-04-02] MEDS ORDERED: midazolam 1 mg/ML 2ml injection ONE (18:23)
[2024-04-02] MEDS ORDERED: ceFAZolin 1000mg inj ONE ×3 (18:24)
[2024-04-02] MEDS ORDERED: LIDOcaine 2% (20mg/ml) 5ml vial ONE (18:24)
[2024-04-02] MEDS ORDERED: ondansetron/PF 4mg/2ml inj ONE (18:24)
[2024-04-02] MEDS ORDERED: dexamethasone sod phosphate 4mg/ml inj. ONE (18:29)
[2024-04-02] MEDS: HYDROmorphone/PF 0.2 MG/ML SYRINGE IV PRN ×3 (19:05→20:15)
[2024-04-02] MEDS: morphine 4 MG/ML inj SYRINge IV PRN (19:20)
[2024-04-02] MEDS ORDERED: HYDROmorphone inj. 0.5 MG/0.5 ML DISP.SYRIN IV PRN (19:54)
[2024-04-02] MEDS: LINZESS 145 MCG PO SCH (20:00)
[2024-04-02] MEDS ORDERED: HYDROmorphone/PF 0.2 MG/ML SYRINGE IV ONE (20:10)
[2024-04-02] MEDS: ondansetron/PF 4mg/2ml inj IV PRN (20:25)
[2024-04-02] MEDS: HYDROmorphone inj. 0.5 MG/0.5 ML DISP.SYRIN IV PRN ×3 (20:34→21:25)
[2024-04-02] MEDS: labetalol 20mg/4ml (5mg/ml) syringe IV PRN (21:37)
[2024-04-02] MEDS: acetaminophen 1,000mg/100ml IV 100 ML IV PRN (21:52)
[2024-04-02] MEDS: hydrALAZINE 20mg/ml inj. IV PRN (22:01)
[2024-04-02] MEDS: cephalexin 250mg capsule PO SCH (23:24)
[2024-04-02] MEDS: oxyCODONE/APAP 10/325mg tablet PO PRN (23:24)
[2024-04-02] MEDS: pregabalin 25mg capsule PO SCH (23:24)
[2024-04-02] MEDS: duloxetine 30mg CAPSULE.DR PO SCH (23:25)
[2024-04-02] MEDS: pantoprazole 40mg Tablet.DR PO SCH (23:25)
[2024-04-03 02:00] VITALS: BP 150/65; PULSE 81; RESP 15; TEMP 98.3; O2SAT 94
[2024-04-03 06:00] VITALS: BP 128/87; PULSE 92; RESP 16; TEMP 97.3; O2SAT 96
[2024-04-03] MEDS ORDERED: famotidine 20mg tablet PO ONE (06:00)
[2024-04-03 06:10] LABS: BASOPHILS % (AUTO) 0.3 % (0-1); EOSINOPHILS % (AUTO) 0 % (0-6); HEMOGLOBIN 7.9 g/dl (14.0-17.9); LYMPHOCYTES # (AUTO) 1.2 X10'3 (1.1-4.8); LYMPHOCYTES % (AUTO) 12.1 % (21-51); MEAN CORPUSCULAR HEMOGLOBIN 23.7 PG (27.0-31.0); MEAN CORPUSCULAR HGB CONC 32.7 g/dL (33.0-36.5); MEAN CORPUSCULAR VOLUME 72.5 FL (78-98); MEAN PLATELET VOLUME 7.7 FL (7.4-10.4); MONOCYTES # (AUTO) 0.6 X10'3 (0-0.9); MONOCYTES % (AUTO) 6.1 % (2-12); NEUTROPHILS # (AUTO) 7.9 X10'3 (1.8-7.7); NEUTROPHILS % (AUTO) 81.5 % (42-75); PLATELET COUNT 312 X10'3 (140-440); RED BLOOD COUNT 3.31 X10'6 (4.70-6.10); RED CELL DISTRIBUTION WIDTH 17.5 % (11.5-14.5); WHITE BLOOD COUNT 9.7 X10'3 (4.5-11.0)
[2024-04-03 06:52] LABS: ALANINE AMINOTRANSFERASE 9 U/L (12-78); ALBUMIN 2.7 G/DL (3.4-5.0); ALBUMIN/GLOBULIN RATIO 0.8 (1.1-1.5); ALKALINE PHOSPHATASE 117 IU/L (46-116); ANION GAP 8 (8-16); ASPARTATE AMINO TRANSFERASE 14 U/L (10-37); BILIRUBIN,TOTAL 0.4 MG/DL (0.1-1.0); BLOOD UREA NITROGEN 5 MG/DL (7-18); BUN/CREATININE RATIO 8.8 (10.0-20.0); CALCIUM 8.6 MG/DL (8.5-10.1); CHLORIDE 104 MMOL/L (99-107); CREATININE 0.57 MG/DL (0.60-1.10); GLUCOSE 114 MG/DL (70-104); MAGNESIUM 1.8 MG/DL (1.5-2.4); POTASSIUM 3.7 MMOL/L (3.5-5.1); SODIUM 139 MMOL/L (135-145); TOTAL CARBON DIOXIDE 26.9 MMOL/L (24-32); TOTAL PROTEIN 6.3 G/DL (6.4-8.2); eCRCL 60 ML/MIN; eGFR > 90 ML/MIN
[2024-04-03] MEDS: finasteride 5mg tablet PO SCH (07:53)
[2024-04-03 08:00] VITALS: RESP 15
[2024-04-03] MEDS ORDERED: non-formulary drug (Lactobacillus Acidophilus (Probiotic) 1 CAP) PO SCH (08:00)
[2024-04-03 10:00] VITALS: BP 127/71; PULSE 96; RESP 16; TEMP 97.3; O2SAT 93
[2024-04-03] MEDS: morphine 2 MG/ML inj. syringe IV ONE (14:45)
[2024-04-03 18:00] VITALS: BP 114/61; PULSE 91; RESP 16; TEMP 98.5; O2SAT 98
[2024-04-03] MEDS: oxyCODONE/APAP 10/325mg tablet PO PRN (20:52)
[2024-04-03 22:00] VITALS: BP 120/57; PULSE 93; RESP 13; TEMP 97.1; O2SAT 93
[2024-04-04 06:00] VITALS: BP 150/70; PULSE 85; RESP 16; TEMP 97.9; O2SAT 94
[2024-04-04 06:12] LABS: BASOPHILS # (AUTO) 0.1 X10'3 (0-0.2); BASOPHILS % (AUTO) 0.5 % (0-1); EOSINOPHILS # (AUTO) 0.2 X10'3 (0-0.9); EOSINOPHILS % (AUTO) 2.1 % (0-6); HEMATOCRIT 23.7 % (42.0-52.0); HEMOGLOBIN 7.8 g/dl (14.0-17.9); LYMPHOCYTES # (AUTO) 2.5 X10'3 (1.1-4.8); LYMPHOCYTES % (AUTO) 24.8 % (21-51); MEAN CORPUSCULAR HGB CONC 32.8 g/dL (33.0-36.5); MEAN CORPUSCULAR VOLUME 73.2 FL (78-98); MEAN PLATELET VOLUME 7.5 FL (7.4-10.4); MONOCYTES # (AUTO) 1.2 X10'3 (0-0.9); MONOCYTES % (AUTO) 12.3 % (2-12); NEUTROPHILS % (AUTO) 60.3 % (42-75); PLATELET COUNT 306 X10'3 (140-440); RED BLOOD COUNT 3.24 X10'6 (4.70-6.10); RED CELL DISTRIBUTION WIDTH 17.6 % (11.5-14.5); WHITE BLOOD COUNT 9.9 X10'3 (4.5-11.0)
[2024-04-04 06:51] LABS: ALANINE AMINOTRANSFERASE 15 U/L (12-78); ALBUMIN 2.7 G/DL (3.4-5.0); ALKALINE PHOSPHATASE 109 IU/L (46-116); ANION GAP 5 (8-16); ASPARTATE AMINO TRANSFERASE 8 U/L (10-37); BILIRUBIN,TOTAL 0.4 MG/DL (0.1-1.0); BLOOD UREA NITROGEN 10 MG/DL (7-18); BUN/CREATININE RATIO 15.6 (10.0-20.0); CALCIUM 8.2 MG/DL (8.5-10.1); CHLORIDE 107 MMOL/L (99-107); CREATININE 0.64 MG/DL (0.60-1.10); GLUCOSE 90 MG/DL (70-104); POTASSIUM 3.7 MMOL/L (3.5-5.1); SODIUM 143 MMOL/L (135-145); TOTAL CARBON DIOXIDE 31.1 MMOL/L (24-32); eCRCL 54 ML/MIN; eGFR > 90 ML/MIN
[2024-04-04 07:10] LABS: ALBUMIN/GLOBULIN RATIO 0.8 (1.1-1.5); TOTAL PROTEIN 6.1 G/DL (6.4-8.2)
[2024-04-04 07:17] VITALS: RESP 16
[2024-04-04] MEDS: ferrous sulfate 325mg tablet PO SCH (08:21)
[2024-04-04 10:00] VITALS: BP 134/70; PULSE 90; RESP 20; TEMP 97.6; O2SAT 91
[2024-04-04 18:00] VITALS: BP 110/55; PULSE 86; RESP 18; TEMP 97.6; O2SAT 94
[2024-04-04 22:00] VITALS: BP 106/64; PULSE 63; RESP 15; TEMP 98.6; O2SAT 92
[2024-04-05 06:00] VITALS: BP 122/56; PULSE 81; RESP 14; TEMP 97.2; O2SAT 96
[2024-04-05 07:13] LABS: ALANINE AMINOTRANSFERASE 11 U/L (12-78); ALBUMIN 2.6 G/DL (3.4-5.0); ALBUMIN/GLOBULIN RATIO 0.8 (1.1-1.5); ALKALINE PHOSPHATASE 93 IU/L (46-116); ANION GAP 4 (8-16); ASPARTATE AMINO TRANSFERASE 7 U/L (10-37); BILIRUBIN,TOTAL 0.4 MG/DL (0.1-1.0); BLOOD UREA NITROGEN 12 MG/DL (7-18); BUN/CREATININE RATIO 19.7 (10.0-20.0); CALCIUM 8.2 MG/DL (8.5-10.1); CHLORIDE 106 MMOL/L (99-107); CREATININE 0.61 MG/DL (0.60-1.10); GLUCOSE 98 MG/DL (70-104); MAGNESIUM 2.1 MG/DL (1.5-2.4); POTASSIUM 4.1 MMOL/L (3.5-5.1); SODIUM 142 MMOL/L (135-145); TOTAL CARBON DIOXIDE 32.2 MMOL/L (24-32); TOTAL PROTEIN 5.9 G/DL (6.4-8.2); eCRCL 56 ML/MIN; eGFR > 90 ML/MIN
[2024-04-05 08:10] VITALS: RESP 16
[2024-04-05 09:47] LABS: BASOPHILS % (AUTO) 0.3 % (0-1); EOSINOPHILS # (AUTO) 0.3 X10'3 (0-0.9); EOSINOPHILS % (AUTO) 3.5 % (0-6); HEMATOCRIT 22.1 % (42.0-52.0); HEMOGLOBIN 7.1 g/dl (14.0-17.9); LYMPHOCYTES # (AUTO) 2.2 X10'3 (1.1-4.8); LYMPHOCYTES % (AUTO) 25.3 % (21-51); MEAN CORPUSCULAR HEMOGLOBIN 23.8 PG (27.0-31.0); MEAN CORPUSCULAR HGB CONC 32.2 g/dL (33.0-36.5); MEAN PLATELET VOLUME 7.2 FL (7.4-10.4); MONOCYTES # (AUTO) 1.2 X10'3 (0-0.9); MONOCYTES % (AUTO) 13.8 % (2-12); NEUTROPHILS # (AUTO) 4.9 X10'3 (1.8-7.7); NEUTROPHILS % (AUTO) 57.1 % (42-75); PLATELET COUNT 286 X10'3 (140-440); RED BLOOD COUNT 2.99 X10'6 (4.70-6.10); RED CELL DISTRIBUTION WIDTH 17.4 % (11.5-14.5); WHITE BLOOD COUNT 8.5 X10'3 (4.5-11.0)
[2024-04-05 13:40] VITALS: BP 112/53; PULSE 65; RESP 16; TEMP 98.6; O2SAT 95
[2024-04-05 18:00] VITALS: BP 105/51; PULSE 77; RESP 15; TEMP 97.8; O2SAT 94
[2024-04-05 20:00] VITALS: RESP 15; O2SAT 94
[2024-04-05 22:00] VITALS: BP 109/49; PULSE 76; RESP 14; TEMP 98.5; O2SAT 93
[2024-04-06 05:57] LABS: BASOPHILS # (AUTO) 0.1 X10'3 (0-0.2); BASOPHILS % (AUTO) 0.7 % (0-1); EOSINOPHILS # (AUTO) 0.3 X10'3 (0-0.9); EOSINOPHILS % (AUTO) 3.8 % (0-6); HEMOGLOBIN 7.1 g/dl (14.0-17.9); LYMPHOCYTES % (AUTO) 23.6 % (21-51); MEAN CORPUSCULAR HEMOGLOBIN 24.3 PG (27.0-31.0); MEAN CORPUSCULAR HGB CONC 32.8 g/dL (33.0-36.5); MEAN CORPUSCULAR VOLUME 74.1 FL (78-98); MEAN PLATELET VOLUME 7.7 FL (7.4-10.4); MONOCYTES % (AUTO) 12.1 % (2-12); NEUTROPHILS # (AUTO) 5.1 X10'3 (1.8-7.7); NEUTROPHILS % (AUTO) 59.8 % (42-75); PLATELET COUNT 352 X10'3 (140-440); RED BLOOD COUNT 2.93 X10'6 (4.70-6.10); RED CELL DISTRIBUTION WIDTH 17.7 % (11.5-14.5); WHITE BLOOD COUNT 8.4 X10'3 (4.5-11.0)
[2024-04-06 06:00] VITALS: BP 121/61; PULSE 71; RESP 16; TEMP 98; O2SAT 96
[2024-04-06 06:02] LABS: HEMATOCRIT 21.7 % (42.0-52.0)
[2024-04-06 06:19] LABS: ALANINE AMINOTRANSFERASE 12 U/L (12-78); ALBUMIN 2.5 G/DL (3.4-5.0); ALBUMIN/GLOBULIN RATIO 0.8 (1.1-1.5); ALKALINE PHOSPHATASE 91 IU/L (46-116); ANION GAP 3 (8-16); ASPARTATE AMINO TRANSFERASE 8 U/L (10-37); BILIRUBIN,TOTAL 0.4 MG/DL (0.1-1.0); BLOOD UREA NITROGEN 10 MG/DL (7-18); BUN/CREATININE RATIO 19.6 (10.0-20.0); CALCIUM 8.4 MG/DL (8.5-10.1); CHLORIDE 106 MMOL/L (99-107); CREATININE 0.51 MG/DL (0.60-1.10); GLUCOSE 100 MG/DL (70-104); POTASSIUM 4.3 MMOL/L (3.5-5.1); SODIUM 142 MMOL/L (135-145); TOTAL CARBON DIOXIDE 32.8 MMOL/L (24-32); TOTAL PROTEIN 5.8 G/DL (6.4-8.2); eCRCL 67 ML/MIN; eGFR > 90 ML/MIN
[2024-04-06 10:00] VITALS: BP 112/70; PULSE 71; RESP 20; TEMP 97.9; O2SAT 96
[2024-04-06 18:00] VITALS: BP 123/50; PULSE 77; RESP 18; TEMP 98.1; O2SAT 96
[2024-04-06 20:00] VITALS: RESP 18; O2SAT 96
[2024-04-06 22:00] VITALS: BP 128/56; PULSE 85; RESP 20; TEMP 97.3; O2SAT 98
[2024-04-07 10:00] VITALS: BP 119/53; PULSE 74; RESP 18; TEMP 98.7; O2SAT 95
[2024-04-07] MEDS: mag hydrox/Alum hydrox/simeth 30ml oral suspension PO PRN (10:04)
[2024-04-07] MEDS: docusate sod 250mg capsule PO PRN (17:30)
[2024-04-07] MEDS: diphenhydrAMINE 2%/zinc acetate cream TP PRN (17:30)
[2024-04-07 20:00] VITALS: RESP 18; O2SAT 93
[2024-04-07 22:00] VITALS: BP 123/66; PULSE 65; RESP 18; TEMP 98.9; O2SAT 93
[2024-04-07] MEDS: naphazoline/pheniramine eye 1 DROP BOTTLE EACHEYE PRN (22:15)
[2024-04-08 06:00] VITALS: BP 127/61; PULSE 73; RESP 18; TEMP 97.4; O2SAT 94
[2024-04-08 10:00] VITALS: BP 104/57; PULSE 74; RESP 20; TEMP 97.9; O2SAT 93
[2024-04-08] MEDS ORDERED: mineral oil 133ml enema RC PRN (12:25)
[2024-04-08] MEDS: magnesium citrate 296ml oral solution PO ONE (13:53)
[2024-04-08] MEDS: lactulose 20gm/30ml cup PO ONE (13:53)
[2024-04-08] MEDS: lactulose 20gm/30ml cup PO SCH (14:00)
[2024-04-08 18:00] VITALS: BP 126/61; PULSE 71; RESP 15; TEMP 98; O2SAT 93
[2024-04-08 20:00] VITALS: RESP 16; O2SAT 98
[2024-04-08] MEDS: nystatin 15 GM powder TP SCH (20:15)
[2024-04-08] MEDS: polyethylene glycol 3350 17gm powd pack PO SCH (21:00)
[2024-04-08 22:00] VITALS: BP 114/49; PULSE 68; RESP 16; TEMP 97.7; O2SAT 93
[2024-04-09] MEDS: ondansetron 4mg rapidly disintigrating tab PO PRN (02:25)
[2024-04-09 06:00] VITALS: BP 115/51; PULSE 77; RESP 18; TEMP 98.1; O2SAT 90
[2024-04-09 10:00] VITALS: BP 112/55; PULSE 70; RESP 14; TEMP 97.7; O2SAT 93
[2024-04-09 14:22] VITALS: RESP 16
[2024-04-09] MEDS ORDERED: [UNRECOGNIZED DRUG - CODE] PO (16:13)
== END 2024-04-09 14:45 | disposition home health service (06) | DRG 872 ==
LOC: ER 01:00 → ED HOLD 02:54 → UNDOADMIN 02:54 → ED HOLD 08:33 → ORTHO 4S 12:00
PROVIDERS: ADMIT Internal Medicine Sleep Medicine; ATTEND Nurse Practitioner Family
PROC: 0HDKXZZ Extraction of Right Lower Leg Skin, External Approach (ICD-10-PCS; 2024-04-02)
PROC: 0Y993ZZ Drainage of Right Lower Extremity, Percutaneous Approach (ICD-10-PCS; principal; 2024-04-02 17:51)
DX: A41.9 Sepsis, unspecified organism (principal); L97.818 Non-pressure chronic ulcer of other part of right lower leg with other specified severity; S80.11XA Contusion of right lower leg, initial encounter; E78.00 Pure hypercholesterolemia, unspecified; G62.9 Polyneuropathy, unspecified; N40.0 Benign prostatic hyperplasia without lower urinary tract symptoms; D50.9 Iron deficiency anemia, unspecified; K59.09 Other constipation; F41.9 Anxiety disorder, unspecified; G47.30 Sleep apnea, unspecified; W18.39XA Other fall on same level, initial encounter; I48.91 Unspecified atrial fibrillation; J44.9 Chronic obstructive pulmonary disease, unspecified; I50.9 Heart failure, unspecified; Z96.643 Presence of artificial hip joint, bilateral; I11.0 Hypertensive heart disease with heart failure; Z79.899 Other long term (current) drug therapy; Z87.891 Personal history of nicotine dependence; Z88.1 Allergy status to other antibiotic agents; Z79.01 Long term (current) use of anticoagulants; Z88.7 Allergy status to serum and vaccine; Z88.8 Allergy status to other drugs, medicaments and biological substances; Y93.89 Activity, other specified; Y92.89 Other specified places as the place of occurrence of the external cause; Y99.8 Other external cause status
CPT/HCPCS: 36415; 70450; 73030; 73120; 73620; 73700; 74177; 80048; 80053; 82272; 82728; 82948; 83036; 83540; 83605; 83690; 83735; 84145; 85025; 85027; 85610; 85730; 86885; 86900; 86901; 87040; 87081; 93005; 97110; 97116; 97161; 97530; 97535; 99285; A4314; A4615; A4618; A5200; A6209; A6213; A6222; A6223; A6224; A6250; A6253; A6446; A6449; A7000; G0378; J0131; J0360; J0690; J0696; J1100; J1171; J1750; J2003; J2250; J2270; J2405; J2470; J2704; J3010; J3490; J7030; Q9967

== ENCOUNTER 2024-05-13 00:35 | Emergency (ER) | payer MEDICARE ==
[~2024-05-13] VITALS: Ht 188 cm; Wt 109.1 kg
[~2024-05-13 00:35] MED LIST changes: -ASPI81TA52 PO; +BUPR8TAB4 SL; -CARB100C9 PO; -CARV-50 PO; +DRY EYE EACHEYE; -DUTA0.5C36 PO; -FERR325T7 PO; +LINA145C PO; -LUBI8CAP PO; -MAGN400T56 PO; -PLEC3TAB2 PO; -POTA-366 PO; +[UNRECOGNIZED DRUG - CODE] PO; +eliquis PO
[2024-05-13 00:38] VITALS: TEMP 98.8
[2024-05-13 01:59] LABS: BASOPHILS % (AUTO) 0.3 % (0-1); EOSINOPHILS # (AUTO) 0.2 X10'3 (0-0.9); EOSINOPHILS % (AUTO) 3.5 % (0-6); HEMATOCRIT 25.1 % (42.0-52.0); HEMOGLOBIN 7.8 g/dl (14.0-17.9); LYMPHOCYTES % (AUTO) 28.4 % (21-51); MEAN CORPUSCULAR HEMOGLOBIN 22.2 PG (27.0-31.0); MEAN CORPUSCULAR HGB CONC 31.2 g/dL (33.0-36.5); MEAN CORPUSCULAR VOLUME 71.2 FL (78-98); MEAN PLATELET VOLUME 7.5 FL (7.4-10.4); MONOCYTES # (AUTO) 0.7 X10'3 (0-0.9); MONOCYTES % (AUTO) 9.6 % (2-12); NEUTROPHILS # (AUTO) 4.1 X10'3 (1.8-7.7); NEUTROPHILS % (AUTO) 58.2 % (42-75); PLATELET COUNT 320 X10'3 (140-440); RED BLOOD COUNT 3.53 X10'6 (4.70-6.10); RED CELL DISTRIBUTION WIDTH 17.9 % (11.5-14.5); WHITE BLOOD COUNT 7.1 X10'3 (4.5-11.0)
[2024-05-13 02:10] LABS: ALANINE AMINOTRANSFERASE 13 U/L (12-78); ALBUMIN 2.8 G/DL (3.4-5.0); ALBUMIN/GLOBULIN RATIO 0.8 (1.1-1.5); ALKALINE PHOSPHATASE 119 IU/L (46-116); ANION GAP 7 (8-16); ASPARTATE AMINO TRANSFERASE 13 U/L (10-37); BILIRUBIN,TOTAL 0.3 MG/DL (0.1-1.0); BLOOD UREA NITROGEN 21 MG/DL (7-18); BUN/CREATININE RATIO 36.8 (10.0-20.0); CALCIUM 8.4 MG/DL (8.5-10.1); CHLORIDE 108 MMOL/L (99-107); CREATININE 0.57 MG/DL (0.60-1.10); GLUCOSE 94 MG/DL (70-104); POTASSIUM 3.6 MMOL/L (3.5-5.1); SODIUM 143 MMOL/L (135-145); TOTAL CARBON DIOXIDE 27.9 MMOL/L (24-32); TOTAL PROTEIN 6.2 G/DL (6.4-8.2); eCRCL 144 ML/MIN; eGFR > 90 ML/MIN
[2024-05-13] MEDS ORDERED: iohexol 300mg/ml 100ml inj. ONE (02:12)
[2024-05-13 02:14] LABS: C-REACTIVE PROTEIN 0.71 MG/DL (0.0-0.5); CREATINE KINASE 46 U/L (39-308); MAGNESIUM 1.8 MG/DL (1.5-2.4)
[2024-05-13] MEDS: piperacillin/tazo 4.5gm/100ml 100 ML IV ONE (03:19)
[2024-05-13] MEDS ORDERED: AMOX-117 PO (03:54)
[2024-05-13 04:21] VITALS: BP 137/81; PULSE 93; RESP 12; O2SAT 96
[2024-05-16] MEDS ORDERED: DUTA0.5C40 PO (02:51)
[2024-05-16] MEDS ORDERED: AMI200T PO (02:53)
[2024-05-16] MEDS ORDERED: CLON0.5T2 PO (02:59)
[2024-05-16] MEDS ORDERED: DULO30CA52 PO (03:01)
== END 2024-05-13 04:23 | disposition home or self-care (01) ==
LOC: ER 00:36
DX: L03.116 Cellulitis of left lower limb (principal); E78.00 Pure hypercholesterolemia, unspecified; G47.30 Sleep apnea, unspecified; I11.0 Hypertensive heart disease with heart failure; I48.91 Unspecified atrial fibrillation; F41.9 Anxiety disorder, unspecified; I50.9 Heart failure, unspecified; J44.9 Chronic obstructive pulmonary disease, unspecified; Z88.1 Allergy status to other antibiotic agents; Z88.8 Allergy status to other drugs, medicaments and biological substances
CPT/HCPCS: 36415; 71045; 73590; 73701; 80053; 82550; 83605; 83735; 84484; 85025; 85651; 86140; 87040; 93005; 96365; 99285; J2543; Q9967

== ENCOUNTER 2024-06-13 11:39 | Emergency (ER) | payer MEDICARE ==
[~2024-06-13] VITALS: Ht 188 cm; Wt 103.4 kg
[~2024-06-13 11:39] MED LIST changes: +AMI200T PO; +ATOR20TA66 PO; +BISA10SU60 RC; -BUPR-561 PO; +BUPR-726 PO; +CLON0.5T2 PO; -DILT180C76 PO; +DOCU-148 PO; +DULO30CA52 PO; +HYDR25SU32 RC; +LACT1CAP26 PO; -LINA145C PO; +LINA290C PO; +LOSA25TA41 PO; +POLY17PO10 PO
--- NOTE | 2024-06-13 11:52 | ELECTROCARDIOGRAPH REPORT ---
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 Juan Willis Measurements Intervals Dixie Rate: 92 P: 48 IN: 239 QRS: -15 QRSD: 97 T: 62 QT: 363 QTc: 450 Interpretive Statements Sinus rhythm Atrial premature complex Prolonged IN interval Borderline left axis deviation Borderline low voltage, extremity leads Electronically Signed On 06-13-2024 11:54:[address] Juan Willis Please click the below link to view image of tracing.
--- NOTE | 2024-06-13 12:00 | Physician Documentation ---
History of Present Illness ~ Chief Complaint: Trauma Level 2 Stated Complaint: FALL ON THINNERS HIT HEAD Time Seen by MD: 11:59 OK to notify your PCP?: Yes Primary Medical Doctor: Dr. Ruben gonzalez. Door Slinger: Dr. Florentino Vargas Source: patient, RN/MD, RN notes reviewed, old records Mode of Arrival: POV Exam Limitations: no limitations HPI 68 year old male presents to the emergency department for complaints of a fall that happened today. Patient states that while he was ambulating his legs had given out causing him to fall and hit his head. He states that he is having pain in his left arm and his neck. Additionally he states that he is feeling nauseous after his fall and feels like he is going to vomit. He states that he had recently been retaining urine and has been increasingly tired. Patient is on blood thinners, denies any loss of consciousness. Patient denies any other associated symptoms at this time. Patient denies any other alleviating or exacerbating factors. Tetanus within 5 years?: Yes Medication Reconciliation Allergies: Coded Allergies: doxycycline (Verified Allergy, Mild, 05/16/24) rash rifampin (Verified Allergy, Unknown, 05/16/24) tetanus and diphtheria toxoids (Unverified Allergy, Unknown, 05/16/24) diphenhydramine (Verified Adverse Reaction, Mild, 05/16/24) causes a headache Scheduled Amiodarone Hcl (Cordarone), 200 MG PO DAILY, (Reported) Atorvastatin Calcium (Atorvastatin Calcium), 40 MG PO DAILY Bisacodyl (Dulcolax), 1 SUPP RC DAILY Bupropion HCl (Bupropion Xl), 1 TAB PO DAILY, (Reported) Docusate Sodium (Colace), 1 CAP PO Q12H Duloxetine HCl (Duloxetine HCl), 3 CAP PO DAILY, (Reported) Duloxetine Hcl* (Cymbalta*), 1 CAP PO HS, (Reported) Finasteride (Finasteride), 1 TAB PO DAILY, (Reported) Fluoxetine Hcl (Prozac), 1 CAP PO QAM, (Reported) Hydrocortisone Acetate (Anusol-Hc), 1 SUPP RC Q12H Lactobacillus Acidophilus (Probiotic), 1 CAP PO DAILY, (Reported) Lactobacillus Rhamnosus (Culturelle), 1 CAP PO DAILY Linaclotide (Linzess), 1 CAP PO DAILY, (Reported) Losartan Potassium (Losartan Potassium), 25 MG PO DAILY Pantoprazole Sodium (Pantoprazole Sodium), 1 TAB PO BID, (Reported) Polyethylene Glycol 3350* (Miralax*), 1 PACKET PO HS Pregabalin (Pregabalin), 1 CAP PO BID, (Reported) Tamsulosin Hcl (Flomax), 2 CAP PO DAILY, (Reported) [eliquis], 1 TAB PO BID, (Reported) Scheduled PRN Buprenorphine Hcl (Buprenorphine Hcl), 1 TAB SL TID PRN for pain, (Reported) Clonazepam (Clonazepam), 0.5 TAB PO TID PRN for for anxiety/agitation, (Reported) Clonazepam (Klonopin), 1 TAB PO Q12H PRN PRN for anxiety, (Reported) ONDANSETRON ODT 4mg tablet (Ondansetron Odt), 1 TAB PO Q6H PRN PRN for nausea/vomiting Ondansetron HCl (Ondansetron HCl), 1 TAB PO Q8H PRN for nausea/vomiting, (Reported) Oxycodone HCl/Acetaminophen (Oxycodone-Acetaminophen 10-300), 1 TAB PO TID PRN for pain Oxycodone Hcl/Acetaminophen (Oxycodone-Acetaminophen 10-325), 1 TAB PO BID PRN for severe pain, (Reported) [dry eye], 1 DROP EACHEYE for Per Protocol, (Reported) Past Medical History Past Medical History: CVA/TIA/Stroke, Sinusitis, Atrial Fibrillation, Congestive Heart Failure, High Cholesterol, Hypertension, COPD, Sleep Apnea, *GI/HEPATOBILIARY*, Cellulitis, Anxiety Past Surgical History: no surgical history Patient History: (COPD) Chronic obstructive lung disease MOTHER DVT FATHER FH: colon cancer brother Alcohol Use: Sober Drug Use: none Lives with: Spouse Lives In: Home Occupation: retired Review of Systems All Other Systems at this time: Reviewed and Negative ROS As stated above in the HPI, otherwise all systems are reviewed and negative. Physical Exam Vital Signs: RN Vital Signs have been reviewed: Yes, Temperature: 97.9, Source: Temporal, Heart Rate: 94, Respiratory Rate: 18, BP: 145/80, Pulse Oximetry: 96, Weight: 103.640 Oxygen Flow Rate: 0 Pulse Oximetry Reflects: adequate oxygenation Physical Exam General: The patient is well developed, well nourished, nontoxic appearing and is in no acute distress. Skin: Chronic skin changes, skin is dry and scaled. HEENT: Head was normocephalic and atraumatic. Eyes - pupils equal, round, reac tive to light and accommodation. Extraocular movements were intact. Conjunctivae were nonicteric. Ears - bilateral tympanic membranes were normal. The mouth and oropharynx were clear with moist mucous membranes. There were no pharyngeal exudates or erythema. Neck: Supple and nontender. There was no jugular venous distention, lymphadenopathy, thyromegaly or masses. Chest: Clear to auscultation bilaterally without wheezes, rales or rhonchi. No accessory muscle use. No dullness to percussion. Heart: Rate regular and rhythmic. S1, S2. No murmurs. Palpation of the chest wall was normal. No rubs or thrills. Abdomen: Soft, nontender and nondistended. Positive bowel sounds. No guarding or rebound. No hepatosplenomegaly or palpable masses. Extremities: No cyanosis, clubbing or edema. The patient moves all extremities. Pulses were equal and symmetric. Neurologic: Cranial nerves II-XII were intact. Sensation was intact to light touch throughout. Motor strength was 5/5 in all four extremities. Deep tendon reflexes were intact in both upper and lower extremities. Psychologic: The patient was oriented to person, place and time. The patient demonstrated appropriate judgement and insight. Progress Results/Orders Reviewed/noted all lab results: Yes Results/Orders Orders - JUAN DUNHAM MD Chest,Single View (06/13/24 11:45) Monitor (06/13/24 11:45) Saline Lock (06/13/24 11:45) Oxygen (06/13/24 11:45) Electrocardiogram (06/13/24 11:45) Ct Cervical Spine (06/13/24 12:33) Ct Head (06/13/24 12:30) Completed Orders - JUAN DUNHAM MD Chest,Single View (06/13/24 11:45) Cbc/Diff (06/13/24 11:45) Electrocardiogram (06/13/24 11:45) CMP (06/13/24 11:45) Hs Troponin I W Calculations (06/13/24 11:45) Hs Troponin I W Calculations (06/13/24 13:45) Hs Troponin I W Calculations (06/13/24 14:45) PTT (06/13/24 11:45) Pt Inr (06/13/24 11:45) Ct Cervical Spine (06/13/24 12:33) Ct Head (06/13/24 12:30) Ondansetron Inj. (Zofran 4mg/2ml Vial) (06/13/24 14:35) Ketorolac Trometh 15mg/Ml Vial (Toradol (06/13/24 14:35) Morphine 2mg/Ml Inj. (Morphine Inj.) (06/13/24 14:35) Lorazepam Tablet (Ativan Tablet) (06/13/24 15:25) Medications Received in ER Medications (Trade) Dose Ordered Sig/Rell Route PRN Reason Start Time Stop Time Status Last Admin Dose Admin (Zofran 4mg/2ml vial) 4 mg ONCE ONCE IV 06/13/24 14:35 06/13/24 14:36 DC 06/13/24 14:45 4 MG (Toradol injection) 15 mg ONCE ONCE IV 06/13/24 14:35 06/13/24 14:36 DC 06/13/24 14:45 15 MG (morphine inj.) 2 mg Q5M PRN IV moderate to severe pain 4-10 06/13/24 14:35 06/13/24 15:41 DC 06/13/24 14:45 2 MG (Ativan tablet) 1 mg ONCE ONCE PO 06/13/24 15:25 06/13/24 15:26 DC 06/13/24 15:33 1 MG Vital Signs 06/13/24 06/13/24 06/13/24 06/13/24 11:41 11:52 11:56 12:04 Temp 97.9 97.9 97.9 Pulse 94 87 83 Resp 18 18 18 B/P (MAP) 145/80 163/91 (115) Pulse Ox 96 96 99 O2 Delivery Room Air O2 Flow Rate 0 0 06/13/24 06/13/24 06/13/24 06/13/24 12:19 12:24 12:40 12:54 Temp 97.9 98.5 98.5 98.5 Pulse 83 82 84 87 Resp 18 16 16 16 Pulse Ox 95 95 92 92 4/24/25 4/24/25 4/24/25 4/24/25 13:00 13:15 13:30 14:45 Temp 98.5 98.5 98.5 Pulse 90 87 87 Resp 12 16 16 17 Pulse Ox 94 93 92 06/13/24 06/13/24 14:45 15:27 Pulse 104 Resp 17 15 B/P (MAP) 157/90 (112) Pulse Ox 96 O2 Flow Rate 0 Laboratory Tests Test 06/13/24 12:06 06/13/24 13:58 06/13/24 15:15 White Blood Count 6.7 Red Blood Count 4.31 L Hemoglobin 10.0 L Hematocrit 31.6 L Mean Corpuscular Volume 73.3 L Mean Corpuscular Hemoglobin 23.3 L Mean Corpuscular Hemoglobin Concent 31.7 L Red Cell Distribution Width 23.8 H Platelet Count 266 Mean Platelet Volume 7.7 Neutrophils (%) (Auto) 65.7 Lymphocytes (%) (Auto) 22.7 Monocytes (%) (Auto) 7.0 Eosinophils (%) (Auto) 3.5 Basophils (%) (Auto) 1.1 H Neutrophils # (Auto) 4.4 Lymphocytes # (Auto) 1.5 Monocytes # (Auto) 0.5 Eosinophils # (Auto) 0.2 Basophils # (Auto) 0.1 CBC Comment Platelet Estimate Normal Red Blood Cell Morphology Perf Basophilic Stippling Anisocytosis 3+ Microcytosis 1+ Prothrombin Time 11.3 INR International Normalized Ratio 1.1 Activated Partial Thromboplast Time 31 Coagulation Comments Sodium Level 142 Potassium Level 3.6 Chloride Level 105 Carbon Dioxide Level 30.6 Anion Gap 6 L Blood Urea Nitrogen 11 Creatinine 0.75 Estimated GFR/1.73 m2 > 90 BUN/Creatinine Ratio 14.7 Glucose Level 105 H Calcium Level 8.7 Total Bilirubin 0.3 Aspartate Amino Transf (AST/SGOT) 12 Alanine Aminotransferase (ALT/SGPT) 17 Alkaline Phosphatase 136 H Troponin I High Sensitivity 8 6 7 Total Protein 6.3 L Albumin 3.1 L Globulin 3.2 Albumin/Globulin Ratio 1.0 L Chemistry Comments Troponin I High Sens Percent Delta 25 16 Troponin I Hi Sens Absolute Change -2 1 Re-Evaluation Re-Evaluation : Re-Evaluation: Improved Progress Patient was seen and examined. Patient was given reassurance. Patient was significant trauma rollover with active bleeding from scalp laceration. Patient's wounds were cleaned the turned out to be a bit superficial were Dermabond together. Patient received a tetanus shot. Afterwards the patient had a full trauma workup which was later discussed with our trauma surgeon. Patient's workup was negative. CT chest abdomen pelvis C-spine and head were all reassuring. Laboratory work showed some mild anemia with a hemoglobin of 10 and 30 one. Normal coagulations chemistry within normal limits as well as LFTs and cardiac function also within normal limits. Patient received pain medications and ultimately was discharged home. Continuous cardiac nurse interpretation shows normal sinus rhythm heart rate 90s, no ectopy, normal, my interpretation. Pulse oximetry monitor interpretation shows normal oxygenation 96% room air, normal, my interpretation. 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 Juan Dunham Measurements Intervals [place] Rate: 92 P: 48 DE: 239 QRS: -15 QRSD: 97 T: 62 QT: 363 QTc: 450 Interpretive Statements Sinus rhythm Atrial premature complex Prolonged DE interval Borderline left axis deviation Borderline low voltage, extremity leads Electronically Signed On 06-13-2024 11:54:[address] Juan Dunham Please click the below link to view image of tracing. EKG Date and Time:06/13/24 1150 Electronically Signed by: JUAN DUNHAM MD Date and Time: 06/13/24 1154 Chest X-Ray : Additional Comments CLINICAL HISTORY: Trauma. Fall injury. COMPARISON: None TECHNIQUE: Axial CT images of the cervical spine were obtained without IV contrast. Coronal and sagittal reformatted images were obtained. All CT scans at this medical facility are performed using dose modulation techniques as appropriate to a performed exam including the following: Automated exposure control was utilized; adjustment of the MA and/or KV according to patient size; and use of iterative reconstruction technique. CTDIvol = 26.88, 0.27, 0.07 mGy DLP = 591.71 mGy-cm FINDINGS: Bones: Reversal of the normal cervical lordosis. Mild grade 1 anterolisthesis of C4 on C5. Minimal anterolisthesis of C7 on T1, T1 on T2, and T2 on T3. Vertebral body heights are maintained. Posterior elements are intact. No acute fracture. Osseous fusion across the C5-C6 and C6-C7 disc spaces. Multilevel severe disc space narrowing with associated endplate sclerosis and endplate screw multilevel facet and uncinate hypertrophy with areas of moderate to severe neural foraminal stenosis. Paraspinal soft tissues: Prevertebral and paraspinal soft tissues are unremarkable. Other: Moderate atherosclerotic calcification of the carotid bifurcations bilaterally. IMPRESSION: 1. No evidence of acute fracture of the cervical spine. 2. Reversal of the normal cervical lordosis with multilevel spondylolisthesis as described above 3. Degenerative disc disease and facet/ uncinate disease in the cervical spine as detailed above. Electronically Signed by:BARRINGTON BARAJAS DO Date & Time: 06/13/[address] #1: Impression INDICATION: RUQ pain TECHNIQUE: Multiple real-time sonographic images of the abdomen were obtained. COMPARISON: CT scan of the abdomen pelvis performed on 12/22/2023 FINDINGS: The liver is homogenous in echogenicity. The liver measures 18.4 cm. No intrahepatic biliary ductal dilatation is noted. The gallbladder surgically absent. Common bile duct measures 0.4 cm. The right kidney measures 11.2 cm. No hydronephrosis. There is a cyst in the right kidney measuring 4.7 cm. The pancreas is not well visualized due to obscuration from bowel gas. The visualized portions of the IVC and aorta are grossly unremarkable. IMPRESSION: 1. Cholecystectomy. No acute process. Electronically Signed by:WERO ORLANDO MD Date & Time: 06/13/[address] #2: Impression CLINICAL HISTORY: Trauma. Fall injury. COMPARISON: None TECHNIQUE: Axial CT images of the cervical spine were obtained without IV contrast. Coronal and sagittal reformatted images were obtained. All CT scans at this medical facility are performed using dose modulation techniques as ap propriate to a performed exam including the following: Automated exposure control was utilized; adjustment of the MA and/or KV according to patient size; and use of iterative reconstruction technique. CTDIvol = 26.88, 0.27, 0.07 mGy DLP = 591.71 mGy-cm FINDINGS: Bones: Reversal of the normal cervical lordosis. Mild grade 1 anterolisthesis of C4 on C5. Minimal anterolisthesis of C7 on T1, T1 on T2, and T2 on T3. Vertebral body heights are maintained. Posterior elements are intact. No acute fracture. Osseous fusion across the C5-C6 and C6-C7 disc spaces. Multilevel severe disc space narrowing with associated endplate sclerosis and endplate screw multilevel facet and uncinate hypertrophy with areas of moderate to severe neural foraminal stenosis. Paraspinal soft tissues: Prevertebral and paraspinal soft tissues are unremarkable. Other: Moderate atherosclerotic calcification of the carotid bifurcations bilaterally. IMPRESSION: 1. No evidence of acute fracture of the cervical spine. 2. Reversal of the normal cervical lordosis with multilevel spondylolisthesis as described above 3. Degenerative disc disease and facet/ uncinate disease in the cervical spine as detailed above. Electronically Signed by:BARRINGTON BARAJAS DO Date & Time: 06/13/24 1301 Medical Decision Making Additional info obtained from: old records Differential Dx:Considerations: Include: Closed head injury, Cardiac injury, Fracture(s), Intraabdominal injury, Pneumothorax, Cerebral contusion, Pulmonary contusion, Spine injury, Tracheal injury, Urological injury, Vascular injury, Abrasion(s), Contusion(s), Foreign body(s), Hematoma(s), Laceration(s), Enc ephalopathy, Other Departure Time of Disposition: 14:34 Disposition: 01 HOME / SELF CARE / HOMELESS Impression: Primary Impression: Fall Additional Impressions: Head contusion Mild concussion Condition: Stable Discharge Instructions: Fall Prevention in the Home, Adult, [id number] Referrals: NO PRIMARY CARE PROVIDER (PCP) Prescriptions ONDANSETRON ODT 4mg tablet (ONDANSETRON ODT) 4 Mg Tab.rapdis 1 TAB PO Q6H PRN PRN for nausea/vomiting for 4 Days, #16 TAB 0 Refills Prov: JUAN DUNHAM MD 06/13/24 Education Educated: Patient Educated regarding: diagnosis, treatment Signature Scribe Signature: Scribed for Juan Dunham MD by Kervin Anand . 06/13/24 12:30 Attestation: The note accurately reflects work and decisions made by me.Juan Dunham MD 06/13/24 12:00 JUAN DUNHAM MD Jun 13, 2024 12:00 KERVIN CONTRERAS Jun 13, 2024 12:30
[2024-06-13 12:17] LABS: BASOPHILS # (AUTO) 0.1 X10'3 (0-0.2); BASOPHILS % (AUTO) 1.1 % (0-1); EOSINOPHILS # (AUTO) 0.2 X10'3 (0-0.9); EOSINOPHILS % (AUTO) 3.5 % (0-6); HEMATOCRIT 31.6 % (42.0-52.0); LYMPHOCYTES # (AUTO) 1.5 X10'3 (1.1-4.8); LYMPHOCYTES % (AUTO) 22.7 % (21-51); MEAN CORPUSCULAR HEMOGLOBIN 23.3 PG (27.0-31.0); MEAN CORPUSCULAR HGB CONC 31.7 g/dL (33.0-36.5); MEAN CORPUSCULAR VOLUME 73.3 FL (78-98); MEAN PLATELET VOLUME 7.7 FL (7.4-10.4); MONOCYTES # (AUTO) 0.5 X10'3 (0-0.9); NEUTROPHILS # (AUTO) 4.4 X10'3 (1.8-7.7); NEUTROPHILS % (AUTO) 65.7 % (42-75); PLATELET COUNT 266 X10'3 (140-440); RED BLOOD COUNT 4.31 X10'6 (4.70-6.10); RED CELL DISTRIBUTION WIDTH 23.8 % (11.5-14.5); WHITE BLOOD COUNT 6.7 X10'3 (4.5-11.0)
[2024-06-13 12:32] LABS: APTT 31 SECONDS (22-32); INR 1.1 INR; PROTHROMBIN TIME 11.3 SECONDS (9.0-12.0)
[2024-06-13 12:43] LABS: ANISOCYTOSIS 3+; MICROCYTOSIS 1+; PLATELET ESTIMATE NORMAL
--- NOTE | 2024-06-13 12:56 | RADIOLOGY REPORT ---
CLINICAL INFORMATION: 68 years old, Male; trauma fall. TECHNIQUE: Axial imaging was obtained through the brain without contrast. Coronal and sagittal reform atted images were obtained, reviewed, and stored. Images were reviewed in brain and bone windows. Al l CT scans at this medical facility are performed using dose modulation techniques as appropriate to a performed exam including the following: Automated exposure control was utilized; adjustment of the MA and/or KV according to patient size; and use of iterative reconstruction technique. CTDIvol = 64.3 3 mGy DLP = 1210.7 mGy-cm COMPARISON: CT CT HEAD on DOS: 04/01/24 FINDINGS: There is no acute intracranial hemorrhage. No mass effect or midline shift. Scattered areas of hypoattenuation are seen in the periventricular and subcortical white matter, which are nonspecif ic but most likely sequelae of small vessel ischemic disease.Lucency in the right basal ganglia, cons istent with chronic lacunar infarct or prominent perivascular space, similar to the prior exam. The v entricles and sulci are within normal limits in size for age. Basal cisterns are patent. The calvari um is unremarkable. Paranasal sinuses and mastoid air cells are clear. IMPRESSION: 1. No CT evidence of acute intracranial abnormality. 2. Nonacute findings as described above.
--- NOTE | 2024-06-13 13:04 | RADIOLOGY REPORT ---
CLINICAL HISTORY: Trauma. Fall injury. COMPARISON: None TECHNIQUE: Axial CT images of the cervical spine were obtained without IV contrast. Coronal and sagit paramjit reformatted images were obtained. All CT scans at this medical facility are performed using dose modulation techniques as appropriate to a performed exam including the following: Automated exposure control was utilized; adjustment of the MA and/or KV according to patient size; and use of iterative reconstruction technique. CTDIvol = 26.88, 0.27, 0.07 mGy DLP = 591.71 mGy-cm FINDINGS: Bones: Reversal of the normal cervical lordosis. Mild grade 1 anterolisthesis of C4 on C5. Minimal an terolisthesis of C7 on T1, T1 on T2, and T2 on T3. Vertebral body heights are maintained. Posterior e lements are intact. No acute fracture. Osseous fusion across the C5-C6 and C6-C7 disc spaces. Multile willy severe disc space narrowing with associated endplate sclerosis and endplate screw multilevel face t and uncinate hypertrophy with areas of moderate to severe neural foraminal stenosis. Paraspinal soft tissues: Prevertebral and paraspinal soft tissues are unremarkable. Other: Moderate atherosclerotic calcification of the carotid bifurcations bilaterally. IMPRESSION: 1. No evidence of acute fracture of the cervical spine. 2. Reversal of the normal cervical lordosis with multilevel spondylolisthesis as described above 3. Degenerative disc disease and facet/ uncinate disease in the cervical spine as detailed above.
[2024-06-13 13:29] LABS: ALANINE AMINOTRANSFERASE 17 U/L (12-78); ALBUMIN 3.1 G/DL (3.4-5.0); ANION GAP 6 (8-16); ASPARTATE AMINO TRANSFERASE 12 U/L (10-37); BILIRUBIN,TOTAL 0.3 MG/DL (0.1-1.0); BLOOD UREA NITROGEN 11 MG/DL (7-18); BUN/CREATININE RATIO 14.7 (10.0-20.0); CALCIUM 8.7 MG/DL (8.5-10.1); CHLORIDE 105 MMOL/L (99-107); CREATININE 0.75 MG/DL (0.60-1.10); GLUCOSE 105 MG/DL (70-104); POTASSIUM 3.6 MMOL/L (3.5-5.1); SODIUM 142 MMOL/L (135-145); TOTAL CARBON DIOXIDE 30.6 MMOL/L (24-32); TOTAL PROTEIN 6.3 G/DL (6.4-8.2); eCRCL 110 ML/MIN; eGFR > 90 ML/MIN
[2024-06-13 13:30] VITALS: TEMP 98.5
[2024-06-13 13:30] LABS: ALKALINE PHOSPHATASE 136 IU/L (46-116)
--- NOTE | 2024-06-13 13:37 | RADIOLOGY REPORT ---
EXAM: DI CHEST,SINGLE VIEW Indication: CP Technique: Single frontal view of the chest was obtained Comparison: DI CHEST,SINGLE VIEW on DOS: 05/16/24, DI CHEST,SINGLE VIEW on DOS: 05/13/24, CHEST,SINGLE VIEW on DOS: 03/21/22 FINDINGS: Lines and Tubes: None Lungs: No focal consolidation. Pleura: No effusion. No pneumothorax. Cardiomediastinal contours: Unremarkable Bones: No acute osseous abnormality. IMPRESSION: No acute cardiopulmonary disease.
[2024-06-13] MEDS ORDERED: ONDA-243 PO (14:36)
[2024-06-13] MEDS: ondansetron/PF 4mg/2ml inj IV ONE (14:45)
[2024-06-13] MEDS: ketorolac trometh 15mg/ml vial 15 MG/ML ML IV ONE (14:45)
[2024-06-13] MEDS: morphine 2 MG/ML inj. syringe IV PRN (14:45)
[2024-06-13 15:27] VITALS: BP 157/90; PULSE 104; RESP 15; O2SAT 96
[2024-06-13] MEDS: LORazepam 1 MG tablet PO ONE (15:33)
== END 2024-06-13 15:41 | disposition home or self-care (01) ==
LOC: ER 11:40
DX: S06.0XAA Concussion with loss of consciousness status unknown, initial encounter (principal); S00.93XA Contusion of unspecified part of head, initial encounter; I11.0 Hypertensive heart disease with heart failure; I50.9 Heart failure, unspecified; I48.91 Unspecified atrial fibrillation; G47.30 Sleep apnea, unspecified; F41.9 Anxiety disorder, unspecified; E78.00 Pure hypercholesterolemia, unspecified; J44.9 Chronic obstructive pulmonary disease, unspecified; Z88.1 Allergy status to other antibiotic agents; Z88.8 Allergy status to other drugs, medicaments and biological substances; Z86.73 Personal history of transient ischemic attack (TIA), and cerebral infarction without residual deficits; Z79.01 Long term (current) use of anticoagulants; Z79.899 Other long term (current) drug therapy; W18.39XA Other fall on same level, initial encounter; Y93.89 Activity, other specified; Y92.89 Other specified places as the place of occurrence of the external cause; Y99.8 Other external cause status
CPT/HCPCS: 12001; 36415; 70450; 71045; 72125; 80053; 84484; 85008; 85025; 85610; 85730; 93005; 96374; 96375; 99285; J1885; J2270; J2405; L0172

== ENCOUNTER 2024-07-17 04:35 | Inpatient (IN) | payer MEDICARE ==
[~2024-07-17] VITALS: Ht 188 cm; Wt 104.5 kg
[~2024-07-17 04:35] MED LIST changes: +APIX5TAB3 PO; +ASPI-1264 PO; -DULO-31 PO; -FLUO10CA28 PO; +LINE600T12 PO; +LOSA50TA64 PO; +METO5TAB85 PO; +NALD0.2T3 PO; +NALO25TA4; -POLY17PO10 PO; +PREG100C PO; -[UNRECOGNIZED DRUG - CODE] PO
[2024-07-17 05:44] LABS: BASOPHILS # (AUTO) 0.1 X10'3 (0-0.2); EOSINOPHILS # (AUTO) 0.2 X10'3 (0-0.9); MONOCYTES # (AUTO) 0.8 X10'3 (0-0.9)
[2024-07-17 05:46] LABS: BASOPHILS % (AUTO) 1.4 % (0-1); HEMATOCRIT 30.4 % (42.0-52.0); HEMOGLOBIN 9.8 g/dl (14.0-17.9); LYMPHOCYTES # (AUTO) 1.9 X10'3 (1.1-4.8); LYMPHOCYTES % (AUTO) 24.1 % (21-51); MEAN CORPUSCULAR HEMOGLOBIN 23.7 PG (27.0-31.0); MEAN CORPUSCULAR HGB CONC 32.2 g/dL (33.0-36.5); MEAN CORPUSCULAR VOLUME 73.6 FL (78-98); MEAN PLATELET VOLUME 7.5 FL (7.4-10.4); MONOCYTES % (AUTO) 9.5 % (2-12); PLATELET COUNT 291 X10'3 (140-440); RED BLOOD COUNT 4.14 X10'6 (4.70-6.10); RED CELL DISTRIBUTION WIDTH 26.3 % (11.5-14.5)
[2024-07-17 06:00] LABS: ALANINE AMINOTRANSFERASE 17 U/L (12-78); ALBUMIN 3.1 G/DL (3.4-5.0); ALBUMIN/GLOBULIN RATIO 0.9 (1.1-1.5); ALKALINE PHOSPHATASE 127 IU/L (46-116); ANION GAP 7 (8-16); ASPARTATE AMINO TRANSFERASE 19 U/L (10-37); BILIRUBIN,TOTAL 0.2 MG/DL (0.1-1.0); BLOOD UREA NITROGEN 14 MG/DL (7-18); CALCIUM 8.8 MG/DL (8.5-10.1); CHLORIDE 104 MMOL/L (99-107); GLUCOSE 106 MG/DL (70-104); POTASSIUM 3.3 MMOL/L (3.5-5.1); SODIUM 141 MMOL/L (135-145); TOTAL CARBON DIOXIDE 29.8 MMOL/L (24-32); TOTAL PROTEIN 6.5 G/DL (6.4-8.2); eCRCL 117 ML/MIN; eGFR > 90 ML/MIN
--- NOTE | 2024-07-17 06:35 | Physician Documentation ---
History of Present Illness ~ Chief Complaint: Wound Stated Complaint: INFECTION LEG,IRREGULAR HEART RATE Time Seen by MD: 06:10 Primary Medical Doctor: Dr. Ruben gonzalez. Scallop Dredger: Dr. Florentino Vargas Mode of Arrival: POV HPI 68-year-old male history of recurrent MRSA cellulitis, atrial fibrillation on Eliquis, HTN, HLD, TIA, COPD, alcohol use disorder presenting today for leg swelling. He reports being admitted to the hospital 2 weeks ago and being placed on IV antibiotics at that time with improvement in his lower extremity pain and swelling. He then was discharged home and over the last few days has had increasing pain and swelling particularly late in his left lower leg. He reports keeping his legs elevated most of the time Reviewed discharge summary July 08, 2024 Tetanus within 5 years?: Yes Medication Reconciliation Allergies: Coded Allergies: doxycycline (Verified Allergy, Mild, 05/16/24) rash rifampin (Verified Allergy, Unknown, 05/16/24) tetanus and diphtheria toxoids (Unverified Allergy, Unknown, 05/16/24) diphenhydramine (Verified Adverse Reaction, Mild, 05/16/24) causes a headache Scheduled Amiodarone Hcl (Cordarone), 200 MG PO DAILY, (Reported) Apixaban (Eliquis), 5 MG PO BID Aspirin* (Aspirin*), 1 TAB PO DAILY, (Reported) Atorvastatin Calcium (Atorvastatin Calcium), 40 MG PO DAILY Bisacodyl (Dulcolax), 1 SUPP RC DAILY Bupropion HCl (Bupropion Xl), 1 TAB PO DAILY, (Reported) Docusate Sodium (Colace), 1 CAP PO Q12H Duloxetine HCl (Duloxetine HCl), 3 CAP PO DAILY, (Reported) Finasteride (Finasteride), 1 TAB PO DAILY, (Reported) Hydrocortisone Acetate (Anusol-Hc), 1 SUPP RC Q12H Lactobacillus Acidophilus (Probiotic), 1 CAP PO DAILY, (Reported) Lactobacillus Rhamnosus (Culturelle), 1 CAP PO DAILY Linaclotide (Linzess), 1 CAP PO DAILY, (Reported) Linezolid (Zyvox), 600 MG PO Q12H Losartan Potassium (Losartan Potassium), 25 MG PO DAILY Losartan Potassium (Losartan Potassium), 50 MG PO DAILY Metoclopramide HCl (Reglan), 1 TAB PO ONCE, (Reported) Naldemedine Tosylate (Symproic), 1 TAB PO DAILY, (Reported) Pantoprazole Sodium (Pantoprazole Sodium), 1 TAB PO BID, (Reported) Pregabalin (Pregabalin), 1 CAP PO BID, (Reported) Pregabalin (Lyrica), 1 CAP PO Q8H, (Reported) Tamsulosin Hcl (Flomax), 2 CAP PO DAILY, (Reported) [eliquis], 1 TAB PO BID, (Reported) Scheduled PRN Buprenorphine Hcl (Buprenorphine Hcl), 1 TAB SL TID PRN for pain, (Reported) Clonazepam (Clonazepam), 0.5 TAB PO TID PRN for for anxiety/agitation, (Reported) Clonazepam (Klonopin), 1 TAB PO Q12H PRN PRN for anxiety, (Reported) Ondansetron HCl (Ondansetron HCl), 1 TAB PO Q8H PRN for nausea/vomiting, (Reported) Oxycodone Hcl/Acetaminophen (Oxycodone-Acetaminophen 10-325), 1 TAB PO BID PRN for severe pain, (Reported) [dry eye], 1 DROP EACHEYE for Per Protocol, (Reported) Miscellaneous Medications Naloxegol Oxalate (Movantik), 4 TAB, (Reported) Past Medical History Past Medical History: CVA/TIA/Stroke, Sinusitis, Atrial Fibrillation, Congestive Heart Failure, High Cholesterol, Hypertension, COPD, Sleep Apnea, *GI/HEPATOBILIARY*, Cellulitis, Anxiety Past Surgical History: no surgical history Patient History: (COPD) Chronic obstructive lung disease MOTHER DVT FATHER FH: colon cancer brother Alcohol Use: Sober Drug Use: none Lives with: Spouse Lives In: Home Occupation: retired Review of Systems All Other Systems at this time: Reviewed and Negative Constitutional: Denies: fever Physical Exam Vital Signs: Temperature: 97.2, Heart Rate: 71, Respiratory Rate: 10, BP: 134/77, Pulse Oximetry: 93, Weight: 104.550 Oxygen Flow Rate: 0 Physical Exam Nontoxic Lower extremity right lower extremity venous stasis dermatitis 2+ pitting edema Left lower extremity hip knee ankle range of motion intact, 2+ pitting edema, skin erythematous tender soft compartments Neuro awake alert oriented Progress Progress Note Labs independently interpreted by myself shows no elevation in inflammatory markers d/w hospitalist Dr. Jacob who graciously accepts for admission Results/Orders Reviewed/noted all lab results: Yes Results/Orders Orders - RAMSEY MOON MD ESR (07/17/24 06:38) Page Hospitalist (07/17/24 06:43) Fill Out Med Reconciliation (07/17/24 06:43) Vancomycin/Ns 1 Gm Add-[employer] (Vancomyc (07/17/24 08:00) Completed Orders - RAMSEY MOON MD Vancomycin*Pharmacy To Dose* (Vancomycin (07/17/24 06:45) Medications Received in ER Medications (Trade) Dose Ordered Sig/Rlel Route PRN Reason Start Time Stop Time Status Last Admin Dose Admin Vancomycin HCl 250 ml @ 166 mls/hr Q8H@0000,0800,1600 IV 07/17/24 08:00 07/17/24 07:15 166 MLS/HR Vital Signs 07/17/24 07/17/24 07/17/24 04:46 05:10 05:10 Temp 97.2 97.2 Pulse 87 71 Resp 16 10 10 B/P (MAP) 136/81 134/77 (96) Pulse Ox 96 93 O2 Flow Rate 0 0 Laboratory Tests Test 07/17/24 05:22 White Blood Count 8.0 Red Blood Count 4.14 L Hemoglobin 9.8 L Hematocrit 30.4 L Mean Corpuscular Volume 73.6 L Mean Corpuscular Hemoglobin 23.7 L Mean Corpuscular Hemoglobin Concent 32.2 L Red Cell Distribution Width 26.3 H Platelet Count 291 Mean Platelet Volume 7.5 Neutrophils (%) (Auto) 62.0 Lymphocytes (%) (Auto) 24.1 Monocytes (%) (Auto) 9.5 Eosinophils (%) (Auto) 3.0 Basophils (%) (Auto) 1.4 H Neutrophils # (Auto) 5.0 Lymphocytes # (Auto) 1.9 Monocytes # (Auto) 0.8 Eosinophils # (Auto) 0.2 Basophils # (Auto) 0.1 CBC Comment Sodium Level 141 Potassium Level 3.3 L Chloride Level 104 Carbon Dioxide Level 29.8 Anion Gap 7 L Blood Urea Nitrogen 14 Creatinine 0.70 Estimated GFR/1.73 m2 > 90 BUN/Creatinine Ratio 20.0 Glucose Level 106 H Calcium Level 8.8 Total Bilirubin 0.2 Aspartate Amino Transf (AST/SGOT) 19 Alanine Aminotransferase (ALT/SGPT) 17 Alkaline Phosphatase 127 H Troponin I High Sensitivity 7 C-Reactive Protein 1.18 H Total Protein 6.5 Albumin 3.1 L Globulin 3.4 Albumin/Globulin Ratio 0.9 L Chemistry Comments Medical Decision Making Additional info obtained from: old records Differential Dx:Considerations: Include: Abscess, Cellulitis, Healing wound Departure Disposition: ADMITTED INPATIENT Admitted to Inpatient Unit: to hospitalist Impression: Primary Impression: Cellulitis of left lower extremity Referrals: NO PRIMARY CARE PROVIDER (PCP) Signature Scribe Signature: na Attestation: RAMSEY Quispe MD July 17, 2024 06:35
[2024-07-17] MEDS: vancomycin/NS 1 GM ADD-VANTAGE 250 ML IV SCH ×2 (07:15→16:03)
[2024-07-17 07:31] LABS: C-REACTIVE PROTEIN 1.18 MG/DL (0.0-0.5)
--- NOTE | 2024-07-17 07:37 | ELECTROCARDIOGRAPH REPORT ---
[facility] Test Date: 2024-07-17 Test Time: 04:40:06 Pat Name: KAY SAEED Department: EMERGENCY ROOM [id number] Room: ORTHO 4016 Gender: M Sample Puller: : 1955 Requested By: CHAPARRITA GONZALEZ Order Number: [id number] Reading MD: Dr. Fidencio Dunham Measurements Intervals [place] Rate: 84 P: -68 TN: 240 QRS: -55 QRSD: 102 T: 69 QT: 459 QTc: 543 Interpretive Statements Unknown rhythm, irregular rate Borderline prolonged TN interval Inferior infarct, old Anterior infarct, old Prolonged QT interval Baseline wander in lead(s) I,II,aVR,aVL,aVF,V1,V2,V3,V4,V5,V6 Electronically Signed On 07-20-2024 13:44:[address] Fidencio Dunham Please click the below link to view image of tracing.
[2024-07-17] MEDS ORDERED: glucagon, human recombinant 1mg kit SUBCUT PRN (07:45)
[2024-07-17] MEDS ORDERED: HYDROcodone/acetaminophen 5mg/325mg tablet PO PRN (07:45)
[2024-07-17] MEDS ORDERED: magnesium sulf-water 2g/50mL 50 ML IV PRN (07:45)
[2024-07-17] MEDS ORDERED: acetaminophen 325mg tablet PO PRN (07:45)
[2024-07-17] MEDS ORDERED: potassium Cl 40MEQ/1/2NS 520ml 520 ML IV PRN (07:45)
[2024-07-17] MEDS ORDERED: mag hydrox/Alum hydrox/simeth 30ml oral suspension PO PRN (07:45)
[2024-07-17] MEDS ORDERED: DEXTROSE 15 GM of carb/4 tabs (each vial/BOTTLE has 4 tablets) PO PRN ×2 (07:45)
[2024-07-17] MEDS ORDERED: magnesium sulf-water 4G/100mL 100 ML IV PRN (07:45)
[2024-07-17] MEDS ORDERED: ipratropium/albuterol 3ml nebule NEB PRN (07:45)
[2024-07-17] MEDS ORDERED: magnesium hydroxide 30ml (MOM) UD suspension PO PRN (07:45)
[2024-07-17] MEDS ORDERED: dextrose 50%-water 50ml dispensing syringe IV PRN ×2 (07:45)
[2024-07-17] MEDS ORDERED: potassium Cl 20 mEq SR tablet PO PRN (07:45)
[2024-07-17] MEDS ORDERED: ondansetron/PF 4mg/2ml inj IV PRN (07:45)
[2024-07-17] MEDS: docusate sod 100mg capsule PO SCH (08:00)
[2024-07-17] MEDS: K and/or MAG REPLACEMENT MC SCH (08:00)
[2024-07-17] MEDS: apixaban 5mg tablet PO SCH ×2 (08:15→20:17)
[2024-07-17] MEDS: normal saline 1000ml 1,000 ML IV SCH (08:16)
[2024-07-17] MEDS: potassium Cl 20 mEq SR tablet PO PRN (08:16)
[2024-07-17 08:53] LABS: HEMOGLOBIN A1C 5.3 % (4.5-6.2)
[2024-07-17] MEDS ORDERED: cefepime 2g/NS 100ml ADVANTAGE 100 ML IV SCH (10:35)
[2024-07-17] MEDS ORDERED: CEFEPIME 2gm in D5W 50mL 50 ML IV SCH (10:39)
[2024-07-17] MEDS: HYDROcodone/acetaminophen 10/325mg tab PO PRN (10:58)
[2024-07-17] MEDS: INSULIN LISPRO 100 UNIT/ML INSULN.PEN MULTI-DOSE SQ SCH (12:00)
[2024-07-17] MEDS: CEFEPIME 2gm in D5W 50mL 50 ML IV SCH (13:22)
[2024-07-17] MEDS: acetaminophen 325mg tablet PO PRN (13:32)
[2024-07-17] MEDS ORDERED: non-formulary drug (Buprenorphine Hcl 1 TAB) SL PRN (14:15)
[2024-07-17] MEDS ORDERED: oxyCODONE/APAP 10/325mg tablet PO PRN (14:15)
[2024-07-17 15:06] VITALS: PULSE 70; RESP 16; O2SAT 95
[2024-07-17] MEDS ORDERED: vancomycin/NS 1 GM ADD-VANTAGE 250 ML IV SCH ×2 (16:00)
[2024-07-17] MEDS: clonazePAM 0.5mg tablet PO PRN (16:33)
[2024-07-17 18:00] VITALS: BP 148/76; PULSE 82; RESP 16; TEMP 98.9; O2SAT 98
[2024-07-17] MEDS: vancomycin/NS 1 GM ADD-VANTAGE 250 ML IV ONE (19:21)
[2024-07-17 19:40] VITALS: PULSE 85; RESP 18; O2SAT 92
--- NOTE | 2024-07-17 19:58 | HISTORY AND PHYSICAL ---
History & Physical Providers to CC ~ History of Present Illness Reason for Admit\Complaint: Lower extremity edema times three days History of Present Illness Patient presents to the ED with a three day history of worsening edema of his bilateral lower extremities he feels as if he has a infection though he informs me that his swelling is less than what it normally is at baseline. The patient has recently hospitalized on the 05 of July and discharged on the and was evaluated by Dr Tami Mccann DO Infectious Disease who continued the patient on vancomycin in the patient was discharged on p.o. Zyvox the patient notes currently that there was increased edema x3 days of his lower extremities he does complain of chills and body aches as well however states that the erythema in his lower extremities less than at baseline. The patient also complains of constipation for six months has lost 70 lb in the past two months. The patient has started IV vancomycin and I requested Dr. Wai maddox infectious disease physician evaluated the patient when I evaluated the patient was not impressed with the appearance in his lower extremities the patient does not have a elevated white blood cell count nor fever, Allergies: Coded Allergies: doxycycline (Verified Allergy, Mild, 05/16/24) rash rifampin (Verified Allergy, Unknown, 05/16/24) tetanus and diphtheria toxoids (Unverified Allergy, Unknown, 05/16/24) diphenhydramine (Verified Adverse Reaction, Mild, 05/16/24) causes a headache Home Medications Home Medications Active Eliquis (Apixaban) 5 Mg Tablet 5 Mg PO BID 30 Days Dulcolax (Bisacodyl) 10 Mg Supp.rect 1 Supp RC DAILY 10 Days Colace (Docusate Sodium) 100 Mg Capsule 1 Cap PO Q12H 30 Days Reported Movantik (Naloxegol Oxalate) 25 Mg Tablet 4 Tab Symproic (Naldemedine Tosylate) 0.2 Mg Tablet 1 Tab PO DAILY 30 Days Linzess (Linaclotide) 290 Mcg Capsule 1 Cap PO DAILY 30 Days Duloxetine HCl 30 Mg Capsule.dr 3 Cap PO DAILY Cordarone (Amiodarone HCl) 200 Mg Tablet 200 Mg PO DAILY [eliquis] 1 Tab PO BID [dry eye] 1 Drop EACHEYE PRN Buprenorphine Hcl 8 Mg Tab.subl 1 Tab SL TID PRN Probiotic (Lactobacillus Acidophilus) 10 Billion Cell Capsule 1 Cap PO DAILY 10 Days Oxycodone-Acetaminophen 10-325 (Oxycodone Hcl/Acetaminophen) 10 Mg-325 Mg Tablet 1 Tab PO BID PRN Pantoprazole Sodium 40 Mg Tablet.dr 1 Tab PO BID Ondansetron HCl 8 Mg Tablet 1 Tab PO Q8H PRN Clonazepam 0.5 Mg Tablet 0.5 Tab PO TID PRN Finasteride 5 Mg Tablet 1 Tab PO DAILY Pregabalin 100 Mg Capsule 1 Cap PO BID Bupropion Xl (Bupropion HCl) 150 Mg Tab.er.24h 1 Tab PO DAILY Flomax (Tamsulosin HCl) 0.4 Mg Cap.sr.24h 2 Cap PO DAILY Past Medical History Past Medical History CHF Recent MRSA cellulitis, LLE Hypertension Atrial fibrillation Chronic alcohol abuse COPD RADHA BPH Venous insufficiency, BLE TIA Sinusitis Past Surgical History Surgical History Comment Bilateral total hip arthroplasty Hematoma removal Cervical spine fusion sinus surgery x 3 Family History Family History: (COPD) Chronic obstructive lung disease MOTHER, Onset:60 years & older DVT FATHER, Onset:60 years & older FH: colon cancer brother, Onset:50's - 60 Past Social History Social History Comment Patient does not smoke, has been sober from alcohol for three years, denies any illicit drug use. full code status ROS ROS Except for positives in the HPI the rest of the 14 point review systems is negative Exam Vitals: Vital Signs Date Time Temp Pulse Resp B/P (MAP) Pulse Ox O2 Delivery O2 Flow Rate FiO2 07/17/24 19:40 85 18 92 Room Air* 0 21 07/17/24 05:10 97.2 134/77 (96) General: Gen. No acute distress alert and oriented 4 Lungs clear to ascultation bilaterally, no wheezes rales or rhonchi appreciated Heart irregular rhythm no murmurs rubs or clicks noted Abdomen soft nontender bowel sounds are normoactive Lower extremities 1+ pitting edema bilaterally, mild pinkish purple discoloration of the distal lower extremities bilaterally Diagnostic Data Last Recorded Lab Results: 07/17/2452107/17/24521 Advance Care Planning Advanced Care plannin - 30 Minutes Problems: (1) Cellulitis of both lower extremities Status: Acute Additional Plan # lower extremity edema- Exam is consistent with a mild venous stasis dermatitis However the patient has had multiple instances of lower extremity cellulitis I restarted IV vancomycin Consulted Dr. Wai maddox infectious disease physician # permanent AFib currently rate controlled- Continue amiodarone And apixaban for DVT and stroke prophylaxis # COPD not in acute exacerbation- Prn DuoNeb and incentive spirometer # BPH- Continue tamsulosin and finasteride # possible non insulin-dependent diabetes mellitus- note that the patient denies being a diabetic Hemoglobin A1c is 5.3 Blood glucose was 88 Discontinue diabetic protocol # DVT prophylaxis Apixaban I spent a total of 17 minutes on reviewing various resuscitative measures/ ACP with the patient at the time of admission. The patient has decided on a full code status Date of Service: July 17, 2024 Billing Provider: PARTHA THAO DO Common Visit Codes: [id number] INP/OBS CARE (HIGH) Secondary Visit Codes: [id number] CARE PLAN 30 MINUTES PARTHA THAO DO July 17, 2024 19:58
[2024-07-17] MEDS ORDERED: ELIQUIS PO SCH (20:00)
[2024-07-17] MEDS: pantoprazole 40mg Tablet.DR PO SCH (20:17)
[2024-07-17 22:00] VITALS: BP 135/67; PULSE 72; RESP 16; TEMP 98.8; O2SAT 97
--- NOTE | 2024-07-17 22:44 | CONSULTATION ---
DATE OF CONSULTATION: 07/17/2024 DICTATING PHYSICIAN: Wai Luke MD I am seeing the patient at the request of Dr. Jacob for evaluation of lower extremity cellulitis. HISTORY OF PRESENT ILLNESS: The patient is a 68-year-old male, well known to me from past hospitalizations regarding sepsis and recurrent cellulitis. He was seen by me back in April of this year. At that time, he did have cellulitis of the left lower leg due to MRSA. I believe he was discharged home with doxycycline. He did require admission in the middle of June. He was actually seen by Dr. Mccann at that time and I believe he was sent home with linezolid. I received a call from his primary care provider late last week that his cellulitis was worsening. Ciprofloxacin was added. He eventually came into the hospital as he did not feel that he was improving. He was placed on vancomycin. I am looking at his medication reconciliation and it is not clear to me that he was ever put on ciprofloxacin. He does not feel that oral antibiotics work as well as IV antibiotics. We had tried treating him with dalbavancin in the past, but he could not tolerate this medication. I believe he has also received daptomycin with good tolerability. PHYSICAL EXAMINATION: VITAL SIGNS: He is afebrile with stable vital signs. GENERAL: He is an elderly male, lying in bed, looking stable. LUNGS: Clear to auscultation bilaterally. HEART: Irregularly irregular. ABDOMEN: Obese and soft. EXTREMITIES: His left lower leg is more swollen compared to the right side. He has chronic discoloration and I do not appreciate significant erythema. There does appear to be some warmth and the affected area is tender to palpation. LABORATORY DATA: His white blood cell count is normal at 8000. His creatinine is 0.7. I do not believe he had any repeat imaging. Blood cultures were not obtained. Culture back in April did grow MRSA. IMPRESSION: * Recurrent cellulitis of the lower extremities, dominantly involving the left lower leg. * MRSA colonization. * History of adverse reaction to dalbavancin. He has also experienced significant photosensitivity with doxycycline. PLAN: He will continue with vancomycin for now. I did add cefepime to his regimen earlier today as it was unclear if he was failing gram-positive therapy. It may be reasonable to set him up with outpatient infusion over at [facility] using daptomycin. I suppose ceftriaxone could also be utilized for gram-negative coverage until he has demonstrated greater improvement. I will continue to follow the patient closely. I thank you for allowing me to participate in his care. Wai Luke MD TID: [id number] RECEIPT: [id number] MM/SUM
[2024-07-18 06:00] VITALS: BP 140/84; PULSE 87; RESP 15; TEMP 97.3; O2SAT 97
[2024-07-18] MEDS: VANCOMYCIN LEVEL IV ONE (06:30)
[2024-07-18 07:21] LABS: BASOPHILS # (AUTO) 0.1 X10'3 (0-0.2); BASOPHILS % (AUTO) 1.5 % (0-1); EOSINOPHILS # (AUTO) 0.4 X10'3 (0-0.9); EOSINOPHILS % (AUTO) 5.2 % (0-6); HEMATOCRIT 33.5 % (42.0-52.0); HEMOGLOBIN 10.6 g/dl (14.0-17.9); LYMPHOCYTES # (AUTO) 1.9 X10'3 (1.1-4.8); MEAN CORPUSCULAR HEMOGLOBIN 23.5 PG (27.0-31.0); MEAN CORPUSCULAR HGB CONC 31.8 g/dL (33.0-36.5); MEAN CORPUSCULAR VOLUME 73.8 FL (78-98); MEAN PLATELET VOLUME 7.3 FL (7.4-10.4); MONOCYTES # (AUTO) 0.7 X10'3 (0-0.9); MONOCYTES % (AUTO) 9.5 % (2-12); NEUTROPHILS # (AUTO) 4.6 X10'3 (1.8-7.7); NEUTROPHILS % (AUTO) 58.8 % (42-75); PLATELET COUNT 330 X10'3 (140-440); RED BLOOD COUNT 4.53 X10'6 (4.70-6.10); RED CELL DISTRIBUTION WIDTH 25.4 % (11.5-14.5); WHITE BLOOD COUNT 7.8 X10'3 (4.5-11.0)
[2024-07-18 07:35] LABS: ALANINE AMINOTRANSFERASE 17 U/L (12-78); ALBUMIN 3.2 G/DL (3.4-5.0); ALBUMIN/GLOBULIN RATIO 0.9 (1.1-1.5); ALKALINE PHOSPHATASE 133 IU/L (46-116); ANION GAP 8 (8-16); ASPARTATE AMINO TRANSFERASE 19 U/L (10-37); BILIRUBIN,TOTAL 0.2 MG/DL (0.1-1.0); BLOOD UREA NITROGEN 9 MG/DL (7-18); BUN/CREATININE RATIO 12.9 (10.0-20.0); CALCIUM 8.7 MG/DL (8.5-10.1); CHLORIDE 104 MMOL/L (99-107); GLUCOSE 100 MG/DL (70-104); POTASSIUM 3.8 MMOL/L (3.5-5.1); SODIUM 140 MMOL/L (135-145); TOTAL CARBON DIOXIDE 28.5 MMOL/L (24-32); TOTAL PROTEIN 6.8 G/DL (6.4-8.2); VANCOMYCIN,TROUGH 14.1 ug/mL (10.0-20.0); eCRCL 117 ML/MIN; eGFR > 90 ML/MIN
[2024-07-18] MEDS: duloxetine 30mg CAPSULE.DR PO SCH (08:06)
[2024-07-18] MEDS: tamsulosin 0.4mg capsule PO SCH (08:06)
[2024-07-18] MEDS: BUPROPION HCL 150MG XL 24 HR 150 MG TAB PO SCH (08:07)
[2024-07-18] MEDS: amiodarone 200mg tablet PO SCH (08:07)
[2024-07-18 09:14] VITALS: PULSE 91; RESP 18; O2SAT 93
[2024-07-18] MEDS: bisacodyl 10mg suppository rectal RC SCH (09:39)
[2024-07-18] MEDS: finasteride 5mg tablet PO SCH (09:40)
[2024-07-18 10:00] VITALS: BP 157/87; PULSE 85; RESP 18; TEMP 97.8; O2SAT 95
--- NOTE | 2024-07-18 10:22 | PROGRESS NOTE ---
Progress Note Dictate Providers to CC ~ Subjective Subjective: He states that the swelling at his left lower leg has decreased. He would like to move forward with IV antibiotics at [facility] outpatient infusion rather than trying oral antibiotics again. Objective Objective: GENERAL: He is an elderly male, lying in bed, looking stable. LUNGS: Clear to auscultation bilaterally. HEART: Irregularly irregular. ABDOMEN: Obese and soft. EXTREMITIES: His left lower leg is more swollen compared to the right side. He has chronic discoloration and I do not appreciate significant erythema. Left lower leg with less swelling, warmth and tenderness. Lab Results: 07/18/24 0641 07/18/24 0641 Problem\Assessment\Plan Additional Plan 1. Recurrent cellulitis of the lower extremities, dominantly involving the left lower leg. 2. MRSA colonization. 3. History of adverse reaction to dalbavancin. He has also experienced significant photosensitivity with doxycycline. DC vancomycin and cefepime Start daptomycin and ceftriaxone Midline placement Plan for IV antibiotics at [facility] outpatient infusion for two weeks D/W PARISA Cruz MD July 18, 2024 10:22
[2024-07-18] MEDS: DAPTOmycin inj. 500 MG in normal saline 100ml IV soln 100 ML IV SCH (11:13)
[2024-07-18 12:02] LABS: % IRON SATURATION 6 % (11-46); IRON 19 UG/DL (53-167); TOTAL IRON BINDING CAPACITY 307 UG/DL (259-388)
[2024-07-18] MEDS: CefTRIAXone 2gm/D5W 50ml BAG 50 ML IV SCH (12:26)
[2024-07-18] MEDS ORDERED: VANCOmycin 1250MG/NS 250ml Bag 250 ML IV SCH (15:00)
[2024-07-18] MEDS: HYDROmorphone 1 mg/ml syringe IV ONE ×2 (16:22→22:00)
[2024-07-18 18:00] VITALS: BP 142/89; PULSE 83; RESP 18; TEMP 97.9; O2SAT 96
[2024-07-18 20:21] VITALS: PULSE 87; RESP 18; O2SAT 95
--- NOTE | 2024-07-18 21:40 | PROGRESS NOTE ---
Daily Progress Note Providers to CC ~ Antibiotic Timeout Antibiotic Ordered?: Yes Subjective The patient is evaluated by Wai Maddox who started the patient on daptomycin and Rocephin IV and a midline was placed anticipate the patient be discharged tomorrow with the outpatient infusion with [facility] x2 weeks Objective Vital Signs Date Time Temp Pulse Resp B/P (MAP) Pulse Ox O2 Delivery O2 Flow Rate FiO2 07/18/24 20:21 87 18 95 Room Air* 0 21 07/18/24 10:00 97.8 157/87 (110) Result Diagram: 07/18/24 0641 07/18/24 0641 Gen. No acute distress alert and oriented 4 Lungs clear to ascultation bilaterally, no wheezes rales or rhonchi appreciated Heart irregular rhythm no murmurs rubs or clicks noted Abdomen soft nontender bowel sounds are normoactive Lower extremities 1+ pitting edema bilaterally, mild pinkish purple discoloration of the distal lower extremities bilaterally Problem\Assessment\Plan Problems/Diagnosis: (1) Cellulitis of both lower extremities # lower extremity cellulitis Exam is consistent with a mild venous stasis dermatitis However the patient has had multiple instances of lower extremity cellulitis I restarted IV vancomycin Consulted Dr. Wai maddox infectious disease physician 07/18 Dr. Wai maddox had started cefepime last evening however today he stopped both cefepime and vancomycin The patient is started on daptomycin and IV Rocephin and outpatient [facility] home infusion is arranged the patient received a midline IV today and two weeks antibiotics for outpatient fusion at [facility] # permanent AFib currently rate controlled- Continue amiodarone And apixaban for DVT and stroke prophylaxis # COPD not in acute exacerbation- Prn DuoNeb and incentive spirometer # BPH- Continue tamsulosin and finasteride # possible non insulin-dependent diabetes mellitus- note that the patient denies being a diabetic Hemoglobin A1c is 5.3 Blood glucose was 88 Discontinue diabetic protocol # DVT prophylaxis Apixaban disposition: Anticipate discharge in the a.m. with [facility] outpatient infusion Date of Service: July 18, 2024 Billing Provider: PRATHA THAO DO Common Visit Codes: [id number] INP/OBS CARE(HIGH) PARTHA THAO DO July 18, 2024 21:40
[2024-07-18 22:00] VITALS: BP 182/106; PULSE 85; RESP 20; TEMP 99; O2SAT 98
[2024-07-18] MEDS: hydrALAZINE 20mg/ml inj. IV PRN (22:10)
[2024-07-19] MEDS: ondansetron 4mg rapidly disintigrating tab PO PRN (04:00)
[2024-07-19 04:53] LABS: BASOPHILS # (AUTO) 0.1 X10'3 (0-0.2); BASOPHILS % (AUTO) 1.7 % (0-1); EOSINOPHILS # (AUTO) 0.3 X10'3 (0-0.9); EOSINOPHILS % (AUTO) 4.3 % (0-6); HEMATOCRIT 34.4 % (42.0-52.0); HEMOGLOBIN 11.2 g/dl (14.0-17.9); LYMPHOCYTES # (AUTO) 1.6 X10'3 (1.1-4.8); LYMPHOCYTES % (AUTO) 20.5 % (21-51); MEAN CORPUSCULAR HEMOGLOBIN 23.6 PG (27.0-31.0); MEAN CORPUSCULAR HGB CONC 32.4 g/dL (33.0-36.5); MEAN CORPUSCULAR VOLUME 72.8 FL (78-98); MEAN PLATELET VOLUME 6.9 FL (7.4-10.4); MONOCYTES # (AUTO) 0.7 X10'3 (0-0.9); NEUTROPHILS # (AUTO) 4.9 X10'3 (1.8-7.7); NEUTROPHILS % (AUTO) 64.5 % (42-75); PLATELET COUNT 351 X10'3 (140-440); RED BLOOD COUNT 4.73 X10'6 (4.70-6.10); RED CELL DISTRIBUTION WIDTH 26.2 % (11.5-14.5); WHITE BLOOD COUNT 7.7 X10'3 (4.5-11.0)
[2024-07-19 05:00] VITALS: BP 136/76; PULSE 89; RESP 16; TEMP 98.6; O2SAT 98
[2024-07-19 05:12] LABS: ALANINE AMINOTRANSFERASE 17 U/L (12-78); ALBUMIN 3.3 G/DL (3.4-5.0); ALBUMIN/GLOBULIN RATIO 0.9 (1.1-1.5); ALKALINE PHOSPHATASE 137 IU/L (46-116); ANION GAP 8 (8-16); ASPARTATE AMINO TRANSFERASE 18 U/L (10-37); BILIRUBIN,TOTAL 0.2 MG/DL (0.1-1.0); BLOOD UREA NITROGEN 10 MG/DL (7-18); BUN/CREATININE RATIO 11.1 (10.0-20.0); CALCIUM 8.9 MG/DL (8.5-10.1); CHLORIDE 103 MMOL/L (99-107); GLUCOSE 104 MG/DL (70-104); MAGNESIUM 1.9 MG/DL (1.5-2.4); POTASSIUM 3.6 MMOL/L (3.5-5.1); SODIUM 141 MMOL/L (135-145); TOTAL CARBON DIOXIDE 29.8 MMOL/L (24-32); eCRCL 91 ML/MIN; eGFR 84 ML/MIN
[2024-07-19 07:10] VITALS: BP_SYST 135
[2024-07-19] MEDS: losartan 50mg tablet PO SCH (07:10)
[2024-07-19 07:47] LABS: PLATELET ESTIMATE NORMAL
[2024-07-19 07:48] LABS: ANISOCYTOSIS 3+; ELLIPTOCYTES 1+; HYPOCHROMASIA 1+; MICROCYTOSIS 1+; POLYCHROMASIA 1+; SCHISTOCYTES FEW
[2024-07-19 08:45] VITALS: PULSE 83; RESP 18; O2SAT 95
[2024-07-19] MEDS ORDERED: LOSA50TA64 PO (10:57)
[2024-07-19] MEDS ORDERED: LACT1CAP65 PO (10:57)
[2024-07-19 11:59] VITALS: RESP 16
[2024-07-19] MEDS ORDERED: VANCOMYCIN LEVEL IV ONE (14:30)
--- NOTE | 2024-07-19 20:30 | DISCHARGE SUMMARY ---
Discharge Summary Providers to CC ~ Discharge Summary Admission Diagnosis: Bilateral marco cellulitis Hospital Course DATE OF ADMISSION: 07/17/2024 DATE OF DISCHARGE: 07/19/2024 Discharge Diagnosis\Comment: Bilateral lower extremity cellulitis, permanent atrial fibrillation, COPD not in acute exacerbation, BPH, diabetes ruled out, hypertension Operations\Procedures: None Consultants: Dr Wai maddox infectious disease physician Complications: None Condition on DC: Stable New Medications: Losartan Potassium (Losartan Potassium) 50 Mg Tablet 50 MG PO DAILY, #30 TAB Continued Medications: Amiodarone Hcl (Cordarone) 200 Mg Tablet 200 MG PO DAILY, TAB Apixaban (Eliquis) 5 Mg Tablet 5 MG PO BID for 30 Days, #60 TAB Bisacodyl (Dulcolax) 10 Mg Supp.rect 1 SUPP RC DAILY for constipation for 10 Days, #10 SUPP 0 Refills Buprenorphine Hcl (Buprenorphine Hcl) 8 Mg Tab.subl 1 TAB SL TID PRN for pain Bupropion HCl (Bupropion Xl) 150 Mg Tab.er.24h 1 TAB PO DAILY Clonazepam (Clonazepam) 0.5 Mg Tablet 0.5 TAB PO TID PRN for for anxiety/agitation Docusate Sodium (Colace) 100 Mg Capsule 1 CAP PO Q12H for 30 Days, #60 CAP 0 Refills [dry eye] () 1 DROP EACHEYE PRN for Per Protocol Duloxetine HCl (Duloxetine HCl) 30 Mg Capsule.dr 3 CAP PO DAILY [eliquis] () 1 TAB PO BID Finasteride (Finasteride) 5 Mg Tablet 1 TAB PO DAILY Lactobacillus Acidophilus (Probiotic) 10 Billion Cell Capsule 1 CAP PO DAILY, #30 CAP 0 Refills (This prescription has been renewed) Linaclotide (Linzess) 290 Mcg Capsule 1 CAP PO DAILY for 30 Days, #30 CAP 0 Refills Naldemedine Tosylate (Symproic) 0.2 Mg Tablet 1 TAB PO DAILY for 30 Days, #30 TAB 0 Refills Naloxegol Oxalate (Movantik) 25 Mg Tablet 4 TAB Ondansetron HCl (Ondansetron HCl) 8 Mg Tablet 1 TAB PO Q8H PRN for nausea/vomiting Oxycodone Hcl/Acetaminophen (Oxycodone-Acetaminophen 10-325) 10 Mg-325 Mg Tablet 1 TAB PO BID PRN for severe pain Pantoprazole Sodium (Pantoprazole Sodium) 40 Mg Tablet.dr 1 TAB PO BID Pregabalin (Pregabalin) 100 Mg Capsule 1 CAP PO BID Tamsulosin Hcl (Flomax) 0.4 Mg Cap.sr.24h 2 CAP PO DAILY Discharge Summary: I admitted the patient with the following HPI:Patient presents to the ED with a three day history of worsening edema of his bilateral lower extremities he feels as if he has a infection though he informs me that his swelling is less than what it normally is at baseline. The patient has recently hospitalized on the 05 of July and discharged on the and was evaluated by Dr Tami Mccann DO Infectious Disease who continued the patient on vancomycin in the patient was discharged on p.o. Zyvox the patient notes currently that there was increased edema x3 days of his lower extremities he does complain of chills and body aches as well however states that the erythema in his lower extremities less than at baseline. The patient also complains of constipation for six months has lost 70 lb in the past two months. The patient has started IV vancomycin and I requested Dr. Wai maddox infectious disease physician evaluated the patient when I evaluated the patient was not impressed with the appearance in his lower extremities the patient does not have a elevated white blood cell count nor fever, The patient was initially treated with IV cefepime and IV vancomycin the patient was evaluated by Dr. Wai maddox infectious disease physician who changed antibiotics to IV Rocephin and IV daptomycin and ordered a midline IV and arranged for [facility] outpatient infusion for a total of two weeks the patient is stable and was able to be discharged the following morning of the . And did have uncontrolled hypertension with a blood pressure of 182/106 on the evening of the and was given 50 mg of losartan and started on losartan and a in his blood pressure on the linen grader of the was 136/76. Patient has chronic COPD not in acute exacerbation. The patient has chronic atrial fibrillation and remains on amiodarone and apixaban. Gen. No acute distress alert and oriented 4 Lungs clear to ascultation bilaterally, no wheezes rales or rhonchi appreciated Heart irregular rhythm no murmurs rubs or clicks noted Abdomen soft nontender bowel sounds are normoactive Lower extremities 1+ pitting edema bilaterally, mild pinkish purple discoloration of the distal lower extremities bilaterally The patient felt ready to be discharged and was medically cleared to be discharged on 07/19/2024 and will follow up in outpatient infusion with [facility] for a total of two weeks The patient was seen and evaluated on day of discharge. Time spent on discharge 35 minutes *Problems/Diagnosis: (1) Cellulitis of both lower extremities Status: Acute Total Time Spent on D/C: > 30 Minutes Date of Service: July 19, 2024 Billing Provider: PARTHA THOA DO Common Visit Codes: [id number] DISCH DAY >30min PARTHA THAO DO July 19, 2024 20:23
== END 2024-07-19 13:40 | disposition home health service (06) | DRG 603 ==
LOC: ER 04:36 → ED HOLD 07:53 → ORTHO 4S 09:56
PROVIDERS: ADMIT Family Medicine; ATTEND Family Medicine
PROC: 05HC33Z Insertion of Infusion Device into Left Basilic Vein, Percutaneous Approach (ICD-10-PCS; principal; 2024-07-18)
PROC: B54NZZA Ultrasonography of Left Upper Extremity Veins, Guidance (ICD-10-PCS; 2024-07-18)
DX: L03.115 Cellulitis of right lower limb (principal); I48.21 Permanent atrial fibrillation; L03.116 Cellulitis of left lower limb; I87.2 Venous insufficiency (chronic) (peripheral); E78.00 Pure hypercholesterolemia, unspecified; J44.9 Chronic obstructive pulmonary disease, unspecified; F10.11 Alcohol abuse, in remission; Z96.643 Presence of artificial hip joint, bilateral; F41.9 Anxiety disorder, unspecified; G47.30 Sleep apnea, unspecified; N40.0 Benign prostatic hyperplasia without lower urinary tract symptoms; I11.0 Hypertensive heart disease with heart failure; I50.9 Heart failure, unspecified; Z88.8 Allergy status to other drugs, medicaments and biological substances; Z88.1 Allergy status to other antibiotic agents; Z88.7 Allergy status to serum and vaccine; Z79.82 Long term (current) use of aspirin; Z79.01 Long term (current) use of anticoagulants; Z79.899 Other long term (current) drug therapy; Z86.73 Personal history of transient ischemic attack (TIA), and cerebral infarction without residual deficits; Z98.1 Arthrodesis status
CPT/HCPCS: 36410; 36415; 76942; 80053; 80202; 82948; 83036; 83540; 83550; 83735; 84484; 85008; 85025; 85651; 86140; 87081; 93005; 94760; 96365; 99285; A6213; C1751; G0378; J0360; J0692; J0696; J0878; J1171; J1815; J3370; J7030

== ENCOUNTER 2024-09-02 12:07 | Inpatient (IN) | payer MEDICARE ==
[~2024-09-02] VITALS: Ht 188 cm; Wt 107.0 kg
[~2024-09-02 12:07] MED LIST changes: -ASPI-1264 PO; -ATOR20TA66 PO; -CLON0.5T2 PO; -HYDR25SU32 RC; -LACT1CAP26 PO; -LINE600T12 PO; -LOSA25TA41 PO; -METO5TAB85 PO; -PREG100C PO
--- NOTE | 2024-09-02 12:19 | ELECTROCARDIOGRAPH REPORT ---
[facility] Test Date: 2024-09-02 Test Time: 12:17:08 Pat Name: KAY SAEED Department: EMERGENCY ROOM Room: [place]THO [facility]– [place][note 2]8 Gender: M Care Technician: : 1955 Requested By: BRITT OTTO Order Number: [id number] Reading MD: Dr. Fidencio Dunham Measurements Intervals [place] Rate: 84 P: 60 ND: 259 QRS: 60 QRSD: 105 T: 40 QT: 398 QTc: 471 Interpretive Statements Sinus rhythm Prolonged ND interval Anterior infarct, old Minimal ST elevation, inferior leads Electronically Signed On 09-11-2024 20:10:[address] Fidencio Dunham Please click the below link to view image of tracing.
--- NOTE | 2024-09-02 12:46 | Physician Documentation ---
History of Present Illness ~ General Chief Complaint: Multiple Medical Complaints Stated Complaint: FALL/SICK Time Seen by MD: 12:20 Primary Medical Doctor: Dr. Ruben aponte [facility]. Sample Patternmaker: Dr. Florentino Vargas History of Present Illness Initial Comments A 69-year-old male presenting with generalized weakness that has been ongoing for the past 3-4 weeks. The patient has an extensive medical history including atrial fibrillation and is currently on Eliquis. The patient was also recently admitted for lower extremity cellulitis and sepsis and was discharged. He states that he recently finished IV antibiotic therapy about a week ago. He states that over the past 3-4 weeks he has had a very sore throat and has started to feel very weak. He has had intermittent nausea and did have a couple episodes of nonbloody emesis today. In addition he states that he feels very tired in gets very short of breath after just a couple of steps. States that the infection in his legs has resolved however these new symptoms have now setting. He denies any fever or chills but states that he overall just feels weak. Denies any chest pain or any other associated symptoms. He did have a fall today due to some weakness and hit his head but did not lose any consciousness. Medication Reconciliation Allergies: Coded Allergies: doxycycline (Verified Allergy, Mild, 09/02/24) rash rifampin (Verified Allergy, Unknown, 09/02/24) tetanus and diphtheria toxoids (Unverified Allergy, Unknown, 09/02/24) diphenhydramine (Verified Adverse Reaction, Mild, 09/02/24) causes a headache Scheduled Amiodarone Hcl (Cordarone), 200 MG PO DAILY, (Reported) Apixaban (Eliquis), 5 MG PO BID Bisacodyl (Dulcolax), 1 SUPP RC DAILY Bupropion HCl (Bupropion Xl), 1 TAB PO DAILY, (Reported) Docusate Sodium (Colace), 1 CAP PO Q12H Duloxetine HCl (Duloxetine HCl), 3 CAP PO DAILY, (Reported) Finasteride (Finasteride), 1 TAB PO DAILY, (Reported) Lactobacillus Acidophilus (Probiotic), 1 CAP PO DAILY Linaclotide (Linzess), 1 CAP PO DAILY, (Reported) Losartan Potassium (Losartan Potassium), 50 MG PO DAILY Naldemedine Tosylate (Symproic), 1 TAB PO DAILY, (Reported) Pantoprazole Sodium (Pantoprazole Sodium), 1 TAB PO BID, (Reported) Pregabalin (Pregabalin), 1 CAP PO BID, (Reported) Tamsulosin Hcl (Flomax), 2 CAP PO DAILY, (Reported) [eliquis], 1 TAB PO BID, (Reported) Scheduled PRN Buprenorphine Hcl (Buprenorphine Hcl), 1 TAB SL TID PRN for pain, (Reported) Clonazepam (Clonazepam), 0.5 TAB PO TID PRN for for anxiety/agitation, (Reported) Ondansetron HCl (Ondansetron HCl), 1 TAB PO Q8H PRN for nausea/vomiting, (Reported) Oxycodone Hcl/Acetaminophen (Oxycodone-Acetaminophen 10-325), 1 TAB PO BID PRN for severe pain, (Reported) [dry eye], 1 DROP EACHEYE for Per Protocol, (Reported) Miscellaneous Medications Naloxegol Oxalate (Movantik), 4 TAB, (Reported) Past Medical History Past Medical History: CVA/TIA/Stroke, Sinusitis, Atrial Fibrillation, Congestive Heart Failure, High Cholesterol, Hypertension, COPD, Sleep Apnea, *GI/HEPATOBILIARY*, Cellulitis, Anxiety Past Surgical History: no surgical history Patient History: (COPD) Chronic obstructive lung disease MOTHER, Onset:60 years & older DVT FATHER, Onset:60 years & older FH: colon cancer brother, Onset:50's - 60 Alcohol Use: Sober Drug Use: none Lives with: Spouse Lives In: Home Occupation: retired Review of Systems All Other Systems at this time: Reviewed and Negative Physical Exam Physical Exam Vital Signs: Temperature: 98.7, Source: Oral, Heart Rate: 88, Respiratory Rate: 18, BP: 162/78, Pulse Oximetry: 91, Weight: 107.000 Oxygen Flow Rate: 0 Physical Exam I have reviewed the triage vitals. CONST: Well developed and well nourished. In no acute distress. Looks fatigued. HENT: Head Atraumatic EYES: Pupils are equal, round and reactive to light. Normal conjunctiva NECK: Normal range of motion. Supple. CARDIO: Normal rate and regular rhythm. No murmurs, rubs, or gallops. S1, S2. PULM/CHEST: No respiratory distress. Lungs clear to auscultation. No wheeze ABD: Soft and nontender. Nondistended. Bowel sounds normal. No guarding. : Exam deferred MSK: No edema. No deformity. There is postinfectious hyperpigmentation specifically in the right lower leg. NEURO: Alert and oriented to person, place and time. Moving all extremities SKIN: Warm and dry. Very pale. PSYCH: Normal mood and affect. Good eye contact. Progress Results/Orders Results/Orders Orders - BRITT OTTO MD Chest,Single View (09/02/24 13:20) Monitor (09/02/24 12:15) Saline Lock (09/02/24 12:15) Oxygen (09/02/24 12:15) Type And Screen (09/02/24 12:34) Culture Blood (09/02/24 12:34) Urinalysis, Cult If Indicated (09/02/24 12:34) Ct Head (09/02/24 13:36) Cefepime 2gm In D5w 50ml (Cefepime-D5w 2 (09/02/24 14:50) Page Hospitalist (09/02/24 14:50) Fill Out Med Reconciliation (09/02/24 14:50) Completed Orders - BRITT OTTO MD Chest,Single View (09/02/24 13:20) Cbc/Diff (09/02/24 12:15) PBNP (09/02/24 12:15) Electrocardiogram (09/02/24 12:15) CK (09/02/24 12:34) CKMB (09/02/24 12:34) Lipase (09/02/24 12:34) Pt Inr (09/02/24 12:34) PTT (09/02/24 12:34) MG (09/02/24 12:34) Myoglobin (09/02/24 12:34) Ct Head (09/02/24 13:36) CMP (09/02/24 12:34) Hs Troponin I W Calculations (09/02/24 12:34) Hs Troponin I W Calculations (09/02/24 14:34) Lacticsepsis (09/02/24 12:34) Methylprednisolone Sod Succ (Solumedrol (09/02/24 14:50) Vital Signs 09/02/24 09/02/24 09/02/24 09/02/24 12:10 12:18 12:19 12:19 Temp 98.7 Pulse 86 88 Resp 16 18 B/P (MAP) 162/78 162/78 (106) Pulse Ox 90 91 91 O2 Delivery Nasal Cannula* O2 Flow Rate 2.0 2 0 FiO2 N/A Laboratory Tests Test 09/02/24 12:45 09/02/24 14:19 White Blood Count 15.4 H Red Blood Count 4.79 Hemoglobin 11.2 L Hematocrit 35.6 L Mean Corpuscular Volume 74.3 L Mean Corpuscular Hemoglobin 23.4 L Mean Corpuscular Hemoglobin Concent 31.5 L Red Cell Distribution Width 22.1 H Platelet Count 359 Mean Platelet Volume 7.2 L Neutrophils (%) (Auto) 90.0 H Lymphocytes (%) (Auto) 3.4 L Monocytes (%) (Auto) 6.0 Eosinophils (%) (Auto) 0.5 Basophils (%) (Auto) 0.1 Neutrophils # (Auto) 13.8 H Lymphocytes # (Auto) 0.5 L Monocytes # (Auto) 0.9 Eosinophils # (Auto) 0.1 Basophils # (Auto) 0.0 CBC Comment Platelet Estimate Normal Red Blood Cell Morphology Perf Polychromasia Few Basophilic Stippling Anisocytosis 3+ Microcytosis 1+ Prothrombin Time 10.4 INR International Normalized Ratio 1.0 Activated Partial Thromboplast Time 26 Coagulation Comments Sodium Level 138 Potassium Level 4.5 Chloride Level 100 Carbon Dioxide Level 30.9 Anion Gap 7 L Blood Urea Nitrogen 22 H Creatinine 0.81 Estimated GFR/1.73 m2 > 90 BUN/Creatinine Ratio 27.2 H Glucose Level 120 H Lactic Acid Level 1.6 Calcium Level 9.1 Magnesium Level 2.0 Total Bilirubin 0.4 Aspartate Amino Transf (AST/SGOT) 20 Alanine Aminotransferase (ALT/SGPT) 23 Alkaline Phosphatase 135 H Total Creatine Kinase 91 Creatine Kinase MB 5.3 H Creatine Kinase MB Relative Index Myoglobin 80.0 Troponin I High Sensitivity 4 5 Pro-B-Type Natriuretic Peptide < 30 Total Protein 6.9 Albumin 3.4 Globulin 3.5 Albumin/Globulin Ratio 1.0 L Lipase 22 Chemistry Comments Troponin I High Sens Percent Delta 25 Troponin I Hi Sens Absolute Change 1 EKG/XRAY/CT/US/VASC/MRI EKG : Additional Comment EKG as interpreted by ED MD indicating normal sinus rhythm with a rate of 84 beats per minute, no ischemia, normal axis Chest X-Ray : Additional Comments AP portable chest CLINICAL INDICATION: CP Comparison: 07/05/2024 FINDINGS: Heart size is enlarged. The aorta is tortuous. There is some infiltrate in the left lower lung zone. Soft tissue thickening in the paratracheal region at the lung apices possibly due to tortuous vessels or thyroid megaly IMPRESSION: 1. Left lower lobe infiltrate CT : Impression CT brain without contrast CLINICAL INDICATION: trauma FINDINGS: The study was performed in a multidetector scanner. This study performed taking axial images from the skull base up to the vertex. Both brain and bone windows are photographed. Dose lowering techniques have been used including automated exposure control and adjustment of mA and/or KV according to patient size. No intraparenchymal hemorrhage or edema. No extra-axial hemorrhage No hydrocephalus or midline shift. Cortical sulcal markings are prominent. IMPRESSION: 1. No acute intracranial injury. 2. Atrophy Medical Decision Making Differential Diagnosis 69-year-old male presenting for generalized weakness and shortness of breath secondary to pneumonia with ensuing sepsis. On his workup he does have an elevated WBC count. His chest x-ray indicates a left lower lobe infiltrate which would explain his shortness of breath and cough as well as his weakness. The patient was recently hospitalized and likely acquired hospital-acquired pneumonia. Patient was medicated with 125 mg of IV Solu-Medrol as well as IV cefepime. Given the findings he will require admission for further treatment and care. Report called to admitting hospitalist team who accepted the patient. Departure Disposition: ADMITTED INPATIENT Admitted to Inpatient Unit: to hospitalist Admission Level of Care: Med/Surg with Tele Impression: Primary Impression: Pneumonia Additional Impressions: Hypoxia Sepsis Referrals: NO PRIMARY CARE PROVIDER (PCP) Signature Scribe Signature: 1 Attestation: 1 BRITT OTTO MD Sep 02, 2024 12:46
[2024-09-02 12:58] LABS: MEAN PLATELET VOLUME 7.2 FL (7.4-10.4); RED CELL DISTRIBUTION WIDTH 22.1 % (11.5-14.5)
[2024-09-02 13:07] LABS: APTT 26 SECONDS (22-32); INR 1.0 INR
[2024-09-02 13:12] LABS: CREATININE 0.81 MG/DL (0.60-1.10); TOTAL CARBON DIOXIDE 30.9 MMOL/L (24-32); eCRCL 100 ML/MIN; eGFR > 90 ML/MIN
[2024-09-02 13:24] LABS: CREATINE KINASE MB 5.3 ng/ml (0.3-3.6); PRO BRAIN NATRIURETIC PEPTIDE < 30 PG/ML (0-125)
[2024-09-02 13:34] LABS: MYOGLOBIN 80.0 ng/ml (16-96)
--- NOTE | 2024-09-02 13:37 | RADIOLOGY REPORT ---
AP portable chest CLINICAL INDICATION: CP Comparison: 07/05/2024 FINDINGS: Heart size is enlarged. The aorta is tortuous. There is some infiltrate in the left lower lung zone. Soft tissue thickening in the paratracheal region at the lung apices possibly due to tort uous vessels or thyroid megaly IMPRESSION: 1. Left lower lobe infiltrate
--- NOTE | 2024-09-02 13:49 | RADIOLOGY REPORT ---
CT brain without contrast CLINICAL INDICATION: trauma FINDINGS: The study was performed in a multidetector scanner. This study performed taking axial image s from the skull base up to the vertex. Both brain and bone windows are photographed. Dose lowering techniques have been used including automated exposure control and adjustment of mA and /or KV according to patient size. No intraparenchymal hemorrhage or edema. No extra-axial hemorrhage No hydrocephalus or midline shift. Cortical sulcal markings are prominent. IMPRESSION: 1. No acute intracranial injury. 2. Atrophy Computed Tomographic Radiation Dosimetry Report: Total CTDI vol = 60 mGy Total DLP = 960 mGy-cm All C T scans at this medical facility are performed using dose modulation techniques as appropriate to a p erformed exam including the following: Automated exposure control was utilized; adjustment of the MA and/or KvP according to patient size; and use of iterative reconstruction technique.
[2024-09-02 13:55] LABS: PLATELET ESTIMATE NORMAL
[2024-09-02] MEDS ORDERED: magnesium sulf-water 4G/100mL 100 ML IV PRN (15:20)
[2024-09-02] MEDS ORDERED: HYDROcodone/acetaminophen 5mg/325mg tablet PO PRN (15:20)
[2024-09-02] MEDS ORDERED: mag hydrox/Alum hydrox/simeth 30ml oral suspension PO PRN (15:20)
[2024-09-02] MEDS ORDERED: potassium Cl 40MEQ/1/2NS 520ml 520 ML IV PRN (15:20)
[2024-09-02] MEDS ORDERED: magnesium sulf-water 2g/50mL 50 ML IV PRN (15:20)
[2024-09-02] MEDS ORDERED: potassium Cl 20 mEq SR tablet PO PRN ×2 (15:20)
[2024-09-02] MEDS ORDERED: albuterol 2.5 MG/3 ML nebule NEB PRN (15:20)
[2024-09-02] MEDS: CEFEPIME 2gm in D5W 50mL 50 ML IV ONE (15:36)
[2024-09-02 15:39] LABS: ABG BASE EXCESS 2.2 mmol/L (-2.0-3.0); ABG HCO3 25.1 mmol/L (21.0-28.0); ABG OXYGEN SATURATION 93.9 % (94.0-98.0); ABG PCO2 (T) 33.1 mmHg (35.0-48.0); ABG PH (T) 7.497 (7.350-7.450); ABG PO2 (T) 58.9 mmHg (83.0-108.0); ALLEN'S TEST POSITIVE; FCOHb 0.4 % (0.5-1.5); FHHb 6.1 % (0.0-5.0); FIO2 28.0 mmHg/%; FLOW 2 L/min; FMetHb 0.3 % (0.0-1.5); FO2Hb 93.2 % (94.0-98.0); MODE NASAL CANNULA; PATIENT TEMPERATURE 37.0; TOTAL HEMOGLOBIN 11.9 G/dl (13.5-17.5)
--- NOTE | 2024-09-02 15:55 | HISTORY AND PHYSICAL ---
History & Physical Providers to CC ~ History of Present Illness Reason for Admit\Complaint: acute hypoxic respiratory failure, PNA, sepsis History of Present Illness Carlitos Ott is a 69-year-old male with a past medical history of atrial fibrillation, COPD, cellulitis of bilateral lower extremities, who presented with a chief complaint of progressively worsening generalized weakness and severe sore throat x 3-4 weeks. Patient reports not being able to have adequate oral food intake due to severe sore throat, also reports overall weakness which led him to fall today. Patient was admitted to [facility] and was treated for lower extremity cellulitis and sepsis and was discharged with a course of IV daptomycin and ceftriaxone which he finished about one week ago. Patient denies prior AR/CAD, CVA, DVT/PE, or GIB. Patient denies loss of consciousness, chest pain, palpitations, shortness of breath, cough, abdominal pain, n/v/d, dysuria, fever, chills. Initial diagnostic findings were notable for chest x-ray indicating left lower lobe infiltrate in ABG indicating respiratory alkalosis. Patient is to be admitted for further workups and treatment. Allergies: Coded Allergies: doxycycline (Verified Allergy, Mild, 09/02/24) rash rifampin (Verified Allergy, Unknown, 09/02/24) tetanus and diphtheria toxoids (Unverified Allergy, Unknown, 09/02/24) diphenhydramine (Verified Adverse Reaction, Mild, 09/02/24) causes a headache Home Medications Home Medications Active Losartan Potassium 50 Mg Tablet 50 Mg PO DAILY Probiotic (Lactobacillus Acidophilus) 10 Billion Cell Capsule 1 Cap PO DAILY Eliquis (Apixaban) 5 Mg Tablet 5 Mg PO BID 30 Days Dulcolax (Bisacodyl) 10 Mg Supp.rect 1 Supp RC DAILY 10 Days Colace (Docusate Sodium) 100 Mg Capsule 1 Cap PO Q12H 30 Days Reported Movantik (Naloxegol Oxalate) 25 Mg Tablet 4 Tab Symproic (Naldemedine Tosylate) 0.2 Mg Tablet 1 Tab PO DAILY 30 Days Linzess (Linaclotide) 290 Mcg Capsule 1 Cap PO DAILY 30 Days Duloxetine HCl 30 Mg Capsule.dr 3 Cap PO DAILY Cordarone (Amiodarone HCl) 200 Mg Tablet 200 Mg PO DAILY [eliquis] 1 Tab PO BID [dry eye] 1 Drop EACHEYE PRN Buprenorphine Hcl 8 Mg Tab.subl 1 Tab SL TID PRN Oxycodone-Acetaminophen 10-325 (Oxycodone Hcl/Acetaminophen) 10 Mg-325 Mg Tablet 1 Tab PO BID PRN Pantoprazole Sodium 40 Mg Tablet.dr 1 Tab PO BID Ondansetron HCl 8 Mg Tablet 1 Tab PO Q8H PRN Clonazepam 0.5 Mg Tablet 0.5 Tab PO TID PRN Finasteride 5 Mg Tablet 1 Tab PO DAILY Pregabalin 100 Mg Capsule 1 Cap PO BID Bupropion Xl (Bupropion HCl) 150 Mg Tab.er.24h 1 Tab PO DAILY Flomax (Tamsulosin HCl) 0.4 Mg Cap.sr.24h 2 Cap PO DAILY Past Medical History Past Medical History CHF MRSA cellulitis, LLE Hypertension Atrial fibrillation Chronic alcohol abuse, sober for 3 years COPD RADHA BPH Venous insufficiency, BLE TIA Past Surgical History Surgical History Comment Bilateral total hip arthroplasty Hematoma removal Cervical spine fusion Family History Family History: (COPD) Chronic obstructive lung disease MOTHER, Onset:60 years & older DVT FATHER, Onset:60 years & older FH: colon cancer brother, Onset:50's - 60 Past Social History Social History Comment Alcohol: Denies, sober for three years Tobacco: Denies Illicit drug use: Denies Living Situation: Lives at home with spouse ROS ROS Other than positives in HPI, all 14 review of systems are negative Exam Vitals: Vital Signs Date Time Temp Pulse Resp B/P (MAP) Pulse Ox O2 Delivery O2 Flow Rate FiO2 09/02/24 12:19 88 18 162/78 (106) 91 0 09/02/24 12:18 Nasal Cannula* N/A 09/02/24 12:10 98.7 General: Generalized weakness, A&Ox 3, NAD HEENT: Normocephalic, PERRLA, erythematous pharynx without ulcerations or noticeable exudates Neck: Supple, trachea midline, no JVD Chest: Diminished left lung sound, clear right lung sound Cardiovascular: RRR, S1&S2 Abdomen: Soft and nontender Extremities: No cyanosis/clubbing/or edema Central Nervous System: CN II-XII intact, no focal deficits Musculoskeletal: No paraspinal muscle tenderness, no muscle spasm Skin: Warm and intact Diagnostic Data Last Recorded Lab Results: 09/02/24 1245 09/02/24 1245 Diagnostic Data: Laboratory Tests Test 09/02/24 12:45 Prothrombin Time 10.4 SECONDS (9.0-12.0) INR International Normalized Ratio 1.0 INR Activated Partial Thromboplast Time 26 SECONDS (22-32) Coagulation Comments Additional Plan 69-year-old male with a past medical history of atrial fibrillation, COPD, cellulitis of bilateral lower extremities, who presented with a chief complaint of progressively worsening generalized weakness and severe sore throat x 3-4 weeks. Patient reports not being able to have adequate oral food intake due to severe sore throat, also reports overall weakness which led him to fall. Assessment Aspiration pneumonia, covering for typical/atypical/pseudomonas Acute hypoxic respiratory failure 2/2 above Respiratory alkalosis Pharyngitis, likely bacterial Sepsis 2/2 PNA Hx COPD -ABG respiratory alkalosis, leukocytosis, febrile, CXR left lobe pneumonia -pBNP wnl, lactic acid normal, trops negative, EKG sinus at 84bpm, no st elevation/depression Hypertension Atrial fibrillation, CVR Chronic alcohol abuse, sober for 3 years Anemia, microcytic RADHA BPH Venous insufficiency, BLE TIA -start Eliquis, metoprolol, losartan, prn hydralazine, pending med rec Plan -empirical abx, fluids, bronchodilators, Levaquin and Zosyn given recent hx -follow CT chest, throat cx, blood cx, UA DVT/VTE prophylaxis: Eliquis Code status: Full code I spent a total of 35 minutes discussing Advanced Care Planning measures with the patient. Advance care planning: Discussed with patient the importance of advance care planning in case of emergent situation. We discussed various resuscitative measures/ ACP with the patient at the time of admission. Patient voiced understanding and patient has decided on a full code status. Date of Service: Sep 02, 2024 Billing Provider: DAI SNIDER Common Visit Codes: 75866-HVXCYUO INP/OBS CARE (HIGH) Secondary Visit Codes: 50789-[id number] CARE PLAN 30 MINUTES DAI SNIDER Sep 02, 2024 15:55
[2024-09-02] MEDS ORDERED: piperacillin/tazo 3.375gm/50ml 50 ML IV SCH (16:00)
[2024-09-02] MEDS: ipratropium/albuterol 3ml nebule NEB SCH (16:00)
[2024-09-02] MEDS: azithromycin/NS 500mg/250ml 250 ML IV ONE (16:14)
[2024-09-02] MEDS: normal saline 1000ml 1,000 ML IV SCH (16:14)
[2024-09-02] MEDS ORDERED: hydrALAZINE 20mg/ml inj. IV PRN (16:30)
[2024-09-02] MEDS ORDERED: NYST100069 PO (16:33)
[2024-09-02] MEDS ORDERED: ASPI-10 PO (16:33)
[2024-09-02] MEDS ORDERED: DIF150T PO (16:33)
[2024-09-02] MEDS ORDERED: FLUO-331 PO (16:33)
[2024-09-02] MEDS ORDERED: LEVO50TA8 PO (16:35)
[2024-09-02] MEDS ORDERED: [UNRECOGNIZED DRUG - CODE] (16:35)
--- NOTE | 2024-09-02 16:45 | RADIOLOGY REPORT ---
Indication: pna, resp failure Technique: CT axial images of the chest are obtained without contrast. Coronal and sagittal reformats were obtained. Radiation Dose Information: CTDI volume is 18 mGy. Dose-length product is 706 mGy*cm Comparison: CTA CHEST on DOS: 03/21/22, CT CHEST on DOS: 11/24/21 FINDINGS: There is limited interpretation of the abdomen and pelvis without administration of intravenous contr ast. The trachea is patent. No pneumothorax. Extensive bilateral pulmonary airspace consolidation most pro nounced within the bilateral lower lobes. No pleural effusion. No pneumothorax. Heart normal in size. Coronary artery calcification disease. En largement of the ascending aorta measuring 4.3 cm. No supraclavicular, axillary lymphadenopathy. Bilateral glenohumeral ankylosis. Thoracic neurostimulator leads. Moderate to advanced thoracic degen erative disc disease. IMPRESSION: Extensive bilateral pulmonary airspace consolidation most pronounced within the lower lobes. Follow-u p to resolution to exclude underlying lesion. Atherosclerotic disease. Dilatation of the ascending aorta to 4.3 cm. Recommend thoracic surgery con sultation for further management. Other findings as described.
[2024-09-02] MEDS: metoprolol succinate 25mg (24-HOUR) SR. Tablet PO ONE (17:13)
[2024-09-02] MEDS: morphine 4 MG/ML inj SYRINge IV ONE (17:14)
[2024-09-02 18:05] VITALS: BP 116/60; PULSE 102; RESP 20; TEMP 100; O2SAT 92
[2024-09-02] MEDS: docusate sod 100mg capsule PO SCH (19:53)
[2024-09-02] MEDS: K and/or MAG REPLACEMENT MC SCH (20:00)
[2024-09-02 20:10] VITALS: PULSE 80; RESP 18; O2SAT 95
[2024-09-02 20:16] VITALS: PULSE 83; RESP 18
[2024-09-02 22:00] VITALS: BP 133/66; PULSE 82; RESP 12; TEMP 98.6; O2SAT 97
[2024-09-02] MEDS ORDERED: normal saline 1000ml 1,000 ML IV SCH (22:25)
[2024-09-02] MEDS: HYDROcodone/acetaminophen 10/325mg tab PO PRN (22:28)
[2024-09-02] MEDS: piperacillin/tazo 3.375gm/50ml 50 ML IV SCH (23:50)
[2024-09-03] VITALS (12 sets, daily range): BP systolic 98–119; BP diastolic 50–62; PULSE 58–86; RESP 13–20; TEMP 97.3–98.6; O2SAT 92–98
[2024-09-03] MEDS: ondansetron/PF 4mg/2ml inj IV PRN (03:18)
[2024-09-03 05:18] LABS: MEAN PLATELET VOLUME 7.8 FL (7.4-10.4); RED CELL DISTRIBUTION WIDTH 21.6 % (11.5-14.5)
[2024-09-03 05:31] LABS: CREATININE 0.85 MG/DL (0.60-1.10); TOTAL CARBON DIOXIDE 30.3 MMOL/L (24-32); eCRCL 95 ML/MIN; eGFR 89 ML/MIN
[2024-09-03] MEDS ORDERED: DOCU100C41 PO (06:59)
[2024-09-03] MEDS ORDERED: LACT1CAP26 PO (07:01)
[2024-09-03] MEDS ORDERED: APIX5TAB3 PO (07:02)
[2024-09-03] MEDS: levoFLOXACIN-Levaquin 750MG/D5 150 ML IV SCH (07:28)
[2024-09-03] MEDS: metoprolol succinate 25mg (24-HOUR) SR. Tablet PO SCH (07:53)
[2024-09-03] MEDS: NALDEMEDINE TOSYLATE 0.2 MG PO SCH (08:00)
[2024-09-03] MEDS ORDERED: levoTHYROXINE 25mcg tablet PO SCH (08:00)
[2024-09-03] MEDS ORDERED: CefTRIAXone 2gm/D5W 50ml BAG 50 ML IV SCH (08:00)
[2024-09-03] MEDS ORDERED: azithromycin/NS 500mg/250ml 250 ML IV SCH (08:00)
[2024-09-03] MEDS: normal saline 1000ml 1,000 ML IV ONE ×3 (08:39→17:34)
[2024-09-03] MEDS: BUPROPION HCL 150MG XL 24 HR 150 MG TAB PO SCH (08:57)
[2024-09-03] MEDS: pantoprazole 40mg Tablet.DR PO SCH (08:58)
[2024-09-03] MEDS: duloxetine 30mg CAPSULE.DR PO SCH (08:58)
[2024-09-03] MEDS: nystatin 500,000 unit/5ML UD oral suspension PO SCH (09:03)
[2024-09-03] MEDS: VANCOMYCIN/H2O 1.75g/350mL PB 350 ML IV ONE (09:37)
[2024-09-03] MEDS ORDERED: ipratropium/albuterol 3ml nebule NEB PRN (11:30)
--- NOTE | 2024-09-03 14:23 | PROGRESS NOTE- Residence ---
Progress Note - Resident Providers to CC Resident Creating Document: ALEX SAMSON RES CC: SIGIFREDO LEYVA MD ~ Central Line/PICC still needed: N\A Antibiotic Timeout Antibiotic Ordered?: Yes If Yes, Indications: pneumonia Subjective Patient is seen this morning. He does not want to get nebulizations during the night. He said he has been feeling ill for the past few days and was having cough and shortness of breaths. He also said he was having a hard time with constipation and hemorrhoids. Objective Vital Signs Date Time Temp Pulse Resp B/P (MAP) Pulse Ox O2 Delivery O2 Flow Rate FiO2 09/03/24 13:38 17 09/03/24 11:05 98.5 68 105/50 (68) 97 Room Air 09/03/24 07:49 0.0 21 Result Diagram: 09/03/2443409/03/24434 General: Elderly male, AAO x4, not in apparent distress Head: Normocephalic with an atraumatic Eyes: Pupils- 3mm, reacting to light, conjunctiva- anicteric Nose and throat: No polyps, septum- normal, no mucosal ulcers Neck: Supple, no lymphadenopathy, no carotid bruit Respiratory: No use of accessory muscles of respiration, Bilateral normal breath sounds heard. No wheeze, rhochi or creps Cardiac: S1-S2 heard, rythm regular, no gallop/murmur Abdomen: non distended, no tenderness, no organomegaly, bowel sounds- heard Extremities: Bilateral lower extremities pigmentation present no clubbing, no pedal edema, no deformities, peripheral pulses- 2+ Skin: warm and dry, no rash, no purpura Neuro: No focal deficit, gross cranial nerve exam- normal Coagulation Studies Laboratory Tests Test 09/02/24 12:45 Prothrombin Time 10.4 SECONDS (9.0-12.0) INR International Normalized Ratio 1.0 INR Activated Partial Thromboplast Time 26 SECONDS (22-32) Coagulation Comments Assessment Assessment 68-year-old male with past medical history of CVA/TIA, AFib on Eliquis, hyperlipidemia, hypertension, COPD, ISABELL, obesity, MRSA cellulitis presented to the ER with chief complaints of generalized weakness, cough, and sore throat. Patient went to his PCP recently and they prescribed him nystatin for sore throat Plan Plan Bilateral Pneumonia- CAP History of MRSA cellulitis - presented with sob, cough -ct chest showing- Extensive bilateral pulmonary airspace consolidation most pronounced within the lower lobes. -WBC 17.6, procalcitonin 0.6 -with history of previous MRSA infections, patient is empirically started on IV vancomycin pharmacy to dose and IV levofloxacin 750 mg once daily -Dr. Luke, ID consulted. appreciate recs Sepsis- POA Likely 2/2 pneumonia Hypotension - 1L fluid bolus given -continue NS @ 100cc/hr - Monitor to maintain MAP >65 Ascending aorta dilatation -CT chest showed ascending aorta dilatation of 4.3 cm -CTVS consult outpatient CVA/TIA -continue aspirin Eliquis -not on statins at home Atrial fibrillation -continue amiodarone 200 mg once daily -continue Eliquis 5 mg twice daily Hypertension Hyperlipidemia -current blood pressures are soft, metoprolol and losartan are on hold BPH -continue Flomax 0.8 mg once daily, finasteride 5 mg once daily COPD/ISABELL -not in acute exacerbation -albuterol p.r.n. for wheezing -CPAP during night Chronic constipation -milk of Mag p.r.n. -Dulcolax suppository p.r.n. -naldemedine 0.2 mg and naloxegol 25 mg once daily -linaclotide 290 mcg once daily Microcytic hypochromic anemia -H&H 9.10/18 -follow up on iron panel Code Status: Full code Line/tube: PIV DVT prophylaxis: Eliquis Nutrition: Heart healthy PT: Yes Prognosis: Guarded Disposition: Continue care in ortho floor Alex Samson MD IM PGY-3 resident Date of Service: Sep 03, 2024 Billing Provider: SIGIFREDO LEYVA MD,ALEX, RES Sep 03, 2024 14:22
--- NOTE | 2024-09-03 15:08 | CONSULTATION REPORT - RESIDENT ---
Consult Providers to CC Resident Creating Document: MORRO LAMBERT CC: PARISA LUKE MD History of Present Illness Reason for Admit\Complaint: Shortness of breath History of Present Illness Patient is a 69-year-old male with medical history of recurrent MRSA cellulitis, CHF, hypertension, atrial fibrillation, RADHA, COPD, BPH, venous insufficiency and TIA who came to the ED due to increasing shortness of breath. Patient was discharged from this hospital on 07/19/2024 after being treated for lower extremity MRSA cellulitis, patient also received 2 weeks of IV daptomycin and ceftriaxone at [facility]. He reports that 2 weeks after finishing his antibiotics he presented with shortness of breaths, chills, sore throat, body aches and mild cough. Symptoms continued to worsen reason why he came to the ED. Patient was admitted with diagnosis of community-acquired pneumonia and was initially given a dose of Zosyn in ED, as well as azithromycin and ceftriaxone. Today, patient was started on vancomycin and levofloxacin. Infectious Disease has been consulted for further evaluation and management. Allergies: Coded Allergies: doxycycline (Verified Allergy, Mild, 09/02/24) rash rifampin (Verified Allergy, Unknown, 09/02/24) tetanus and diphtheria toxoids (Unverified Allergy, Unknown, 09/02/24) diphenhydramine (Verified Adverse Reaction, Mild, 09/02/24) causes a headache Home Medications Home Medications Active Reported Eliquis (Apixaban) 5 Mg Tablet 1 Tab PO Q12H 30 Days Culturelle (Lactobacillus Rhamnosus) 10 Billion Cell Capsule 1 Cap PO DAILY 30 Days Docusate Sodium 100 Mg Capsule 1 Cap PO Q12H 7 Days Levothyroxine Sodium 50 Mcg Tablet 1 Tab PO DAILY Aspirin 325 Mg Tablet Aspirin 325 Mg Tablet 1 Tab PO DAILY 30 Days Fluoxetine HCl 10 Mg Capsule 2 Cap PO DAILY Nystatin 100,000 Unit/Ml Oral.susp 4 Ml PO QID Diflucan* (Fluconazole) 150 Mg Tablet 1 Tab PO Q72H Movantik (Naloxegol Oxalate) 25 Mg Tablet 4 Tab Symproic (Naldemedine Tosylate) 0.2 Mg Tablet 1 Tab PO DAILY 30 Days Linzess (Linaclotide) 290 Mcg Capsule 1 Cap PO DAILY 30 Days Duloxetine HCl 30 Mg Capsule.dr 3 Cap PO DAILY Cordarone (Amiodarone HCl) 200 Mg Tablet 200 Mg PO DAILY Buprenorphine Hcl 8 Mg Tab.subl 1 Tab SL TID PRN Oxycodone-Acetaminophen 10-325 (Oxycodone Hcl/Acetaminophen) 10 Mg-325 Mg Tablet 1 Tab PO BID PRN Pantoprazole Sodium 40 Mg Tablet.dr 1 Tab PO BID Ondansetron HCl 8 Mg Tablet 1 Tab PO Q8H PRN Clonazepam 0.5 Mg Tablet 0.5 Tab PO TID PRN Finasteride 5 Mg Tablet 1 Tab PO DAILY Pregabalin 100 Mg Capsule 1 Cap PO TID Bupropion Xl (Bupropion HCl) 150 Mg Tab.er.24h 1 Tab PO DAILY Flomax (Tamsulosin HCl) 0.4 Mg Cap.sr.24h 2 Cap PO DAILY Past Medical History Past Medical History MRSA cellulitis, CHF, hypertension, atrial fibrillation, COPD, DA, BPH, insufficiency and TIA Past Surgical History Surgical History Comment Bilateral total hip arthroplasty Cervical spine surgery Sinus surgery x2 Family History Family History: (COPD) Chronic obstructive lung disease MOTHER, Onset:60 years & older DVT FATHER, Onset:60 years & older FH: colon cancer brother, Onset:50's - 60 Past Social History Social History Comment History of alcoholism, sober for 3 years Denies cigarettes or recreational drugs Lives with Uses walker ROS ROS All systems were reviewed and found negative except for pertinent positives mentioned in HPI Exam Vitals: Vital Signs Date Time Temp Pulse Resp B/P (MAP) Pulse Ox O2 Delivery O2 Flow Rate FiO2 09/03/24 13:38 17 09/03/24 11:05 98.5 68 105/50 (68) 97 Room Air 09/03/24 07:49 0.0 21 General: General: Obese habitus, awake, alert oriented to place, time, and person HEENT: No pallor present, no icterus, moist mucous membranes Neck: No masses and tenderness Resp: Unlabored. Crackles auscultated in left lung. No wheezes or rhonchi Chest: Normal expansion Cardiovascular: Regular Rate and rhythm, normal S1 and S2 without murmur, rub or gallop Abdomen: Soft and nontender, no organomegaly, no guarding and rigidity, bowel sounds present Neuro: No focal weakness in the upper and lower limb muscles, power of the muscles 5/5 bilateral upper and lower extremities, normal reflexes bilaterally. Cranial nerves intact Extremities: He has chronic ectatic changes in excoriation in both lower extremities. No erythema observed, he has trace edema. No cyanosis or clubbing Skin: Warm and Dry. No lesions Psych: Normal affect Diagnostic Data Last Recorded Lab Results: 09/03/[id number] Diagnostic Data: Laboratory Tests Test 09/02/24 12:45 Prothrombin Time 10.4 SECONDS (9.0-12.0) INR International Normalized Ratio 1.0 INR Activated Partial Thromboplast Time 26 SECONDS (22-32) Coagulation Comments Additional Plan Hospital Acquired Pneumonia, lower lobe, bilateral History of recurrent MRSA lower extremity cellulitis Patient's white count is still elevated, slightly worse today Procalcitonin initially normal, no elevated Chest x-ray shows left lower lobe infiltrate Chest CT shows extensive bilateral pulmonary airspace consolidation most pronounced within the lower lobes. Follow-up to resolution to exclude underlying lesion Blood cultures and MRSA screen are negative Received Zosyn, azithromycin, and ceftriaxone yesterday Now on Levaquin and vancomycin Patient discussed in detail with Dr. Luke, plan: Continue Levaquin and Vancomycin Will consider switching to Cefepime if no improvement Ok to DC isolation Other comorbidities include: CHF Hypertension Atrial fibrillation COPD RADHA BPH Venous insufficiency TIA Management per hospitalist team Disposition: Continue care in ortho floor. Antibiotics as above Morro Sy MD Internal Medicine Resident PGY-2 Date of Service: Sep 03, 2024 Billing Provider: PARISA LUKE MD, LEONARDO LUIS Sep 03, 2024 15:08
[2024-09-03] MEDS: bisacodyl 10mg suppository rectal RC PRN (17:01)
[2024-09-03] MEDS: vancomycin/NS 1 GM ADD-VANTAGE 250 ML X 1 DOSE IV SCH (17:34)
[2024-09-04 05:30] LABS: MEAN PLATELET VOLUME 7.4 FL (7.4-10.4); RED CELL DISTRIBUTION WIDTH 21.8 % (11.5-14.5)
[2024-09-04 05:50] LABS: % IRON SATURATION 3 % (11-46)
[2024-09-04 06:00] VITALS: BP 120/65; PULSE 66; RESP 16; TEMP 98.8; O2SAT 90
[2024-09-04 06:10] LABS: CREATININE 0.63 MG/DL (0.60-1.10); TOTAL CARBON DIOXIDE 25.3 MMOL/L (24-32); eCRCL 129 ML/MIN; eGFR > 90 ML/MIN
[2024-09-04 08:56] VITALS: O2SAT 93
--- NOTE | 2024-09-04 09:53 | PROGRESS NOTE- Residence ---
Progress Note - Resident Providers to CC Resident Creating Document: MORRO LAMBERT CC: PARISA LUKE MD ~ Antibiotic Timeout Antibiotic Ordered?: Yes Subjective Patient was seen at bedside this morning. From a respiratory standpoint, he is feeling better with improved shortness of breath. She does continue with some cough and productive sputum. He otherwise complains of significant constipation and leg cramps which is not a new issue for him. Objective Vital Signs Date Time Temp Pulse Resp B/P (MAP) Pulse Ox O2 Delivery O2 Flow Rate FiO2 09/04/24 08:56 93 Room Air 09/04/24 08:37 66 09/04/24 06:00 98.8 16 120/65 (83) 09/03/24 19:18 0 21 Result Diagram: 09/04/248 09/04/248 General: Obese habitus, awake, alert oriented to place, time, and person HEENT: No pallor present, no icterus, moist mucous membranes Neck: No masses and tenderness Resp: Unlabored. Crackles auscultated in left lung. No wheezes or rhonchi Chest: Normal expansion Cardiovascular: Regular Rate and rhythm, normal S1 and S2 without murmur, rub or gallop Abdomen: Soft and nontender, no organomegaly, no guarding and rigidity, bowel sounds present Neuro: No focal weakness in the upper and lower limb muscles, power of the muscles 5/5 bilateral upper and lower extremities, normal reflexes bilaterally. Cranial nerves intact Extremities: He has chronic ectatic changes in excoriation in both lower extremities. No erythema observed, he has trace edema. No cyanosis or clubbing Skin: Warm and Dry. No lesions Psych: Normal affect Coagulation Studies Laboratory Tests Test 09/02/24 12:45 Prothrombin Time 10.4 SECONDS (9.0-12.0) INR International Normalized Ratio 1.0 INR Activated Partial Thromboplast Time 26 SECONDS (22-32) Coagulation Comments Plan Plan ID Progress Note: Hospital Acquired Pneumonia, lower lobe, bilateral History of recurrent MRSA lower extremity cellulitis Patient's white is now trending down Procalcitonin normalized Chest x-ray shows left lower lobe infiltrate Chest CT shows extensive bilateral pulmonary airspace consolidation most pronounced within the lower lobes. Follow-up to resolution to exclude underlying lesion Blood cultures and MRSA screen are negative Received Zosyn, azithromycin, and ceftriaxone on admission On Levaquin and vancomycin Patient discussed in detail with Dr. Luke, plan: Continue IV Levaquin and Vancomycin today. If patient continues to improve, Ok to DC tomorrow Since prior MRSA was sensitive to erythromycin, it is likely sensitive to clindamycin Discharge plan is PO Clindamycin 300mg TID and switch levaquin to PO. Continue for 7 more days Other comorbidities include: Constipation CHF Hypertension Atrial fibrillation COPD RADHA BPH Venous insufficiency TIA Management per hospitalist team Disposition: Continue care in ortho floor. Possibly ok to DC tomorrow Morro Sy MD Internal Medicine Resident PGY-2 Date of Service: Sep 04, 2024 Billing Provider: PARISA LUKE MD, LEONARDO LUIS Sep 04, 2024 09:53
[2024-09-04 10:00] VITALS: BP 118/62; PULSE 66; RESP 16; TEMP 98.4; O2SAT 95
[2024-09-04] MEDS: VANCOMYCIN LEVEL IV ONE (10:28)
[2024-09-04 18:00] VITALS: BP 107/56; PULSE 75; RESP 17; TEMP 99.1; O2SAT 96
[2024-09-04] MEDS: VANCOmycin 1250MG/NS 250ml Bag 250 ML IV SCH (19:10)
[2024-09-04 19:23] VITALS: PULSE 63; RESP 14; O2SAT 92
--- NOTE | 2024-09-04 21:10 | PROGRESS NOTE ---
Daily Progress Note Providers to CC ~ Antibiotic Timeout Antibiotic Ordered?: Yes Subjective Patient was seen in presence of nursing staff all labs and diagnostic workup results discussed with the patient patient does not have any active bilateral lower extremity cellulitis. He was very much concerned about throat which I examined patient has very poor dentition needs the dentist and the ENT specialist in outpatient setting but there is no signs of inflammation in the oropharynx and normally lymph nodes bilaterally in neck area. Antibiotics management discussed with Dr. Luke who recommended to watch one more day and probably discharge tomorrow with one more week of Levaquin and clindamycin. Objective Vital Signs Date Time Temp Pulse Resp B/P (MAP) Pulse Ox O2 Delivery O2 Flow Rate FiO2 09/04/24 19:23 63 14 92 Room Air* 0 21 09/04/24 10:00 98.4 118/62 (80) Result Diagram: 09/04/248 09/04/248 General-patient not in any acute distress, alert awake oriented, chronically ill-appearing, looks comfortable HEENT-atraumatic normocephalic, neck supple without elevated JVD, no thyromegaly or carotid bruit. No lymphadenopathy bilaterally. Normal oropharynx no large glands bilaterally , poor dentition Eyes-no icterus or pallor seen in eyes Chest-clear to auscultation bilaterally, breathing nonlabored no tachypnea, no wheezing, no crepitation, no crackles. Heart-S1-S2 normal, regular heart rate no murmur Abdomen bowel sounds positive on auscultation, soft nondistended nontender no guarding, no rigidity Skin no active skin rash , /signs of chronic hyperpigmentation present over lower extremity Neurology-grossly intact, nonfocal alert awake oriented Extremity- no pedal edema able to move all 4 extremities, there is no active cellulitis over legs . Psychiatry - patient is not confused or agitated cooperated during physical examination Coagulation Studies Laboratory Tests Test 09/02/24 12:45 Prothrombin Time 10.4 SECONDS (9.0-12.0) INR International Normalized Ratio 1.0 INR Activated Partial Thromboplast Time 26 SECONDS (22-32) Coagulation Comments Problem\Assessment\Plan 68-year-old male with past medical history of CVA/TIA, AFib on Eliquis, hyperlipidemia, hypertension, COPD, ISABELL, obesity, MRSA cellulitis presented to the ER with chief complaints of generalized weakness, cough, and sore throat. Patient went to his PCP recently and they prescribed him nystatin for sore throat Plan Plan Bilateral Pneumonia- CAP History of MRSA cellulitis - presented with sob, cough -ct chest showing- Extensive bilateral pulmonary airspace consolidation most pronounced within the lower lobes. -WBC 17.6, procalcitonin 0.6 -with history of previous MRSA infections, patient is empirically started on IV vancomycin pharmacy to dose and IV levofloxacin 750 mg once daily -Dr. Luke, ID consulted and following the patient Sepsis- POA Likely 2/2 pneumonia Hypotension - 1L fluid bolus given -continue NS @ 100cc/hr - Monitor to maintain MAP >65 Ascending aorta dilatation -CT chest showed ascending aorta dilatation of 4.3 cm -CTVS consult outpatient CVA/TIA -continue aspirin Eliquis -not on statins at home Atrial fibrillation -continue amiodarone 200 mg once daily -continue Eliquis 5 mg twice daily Hypertension Hyperlipidemia -current blood pressures are soft, metoprolol and losartan are on hold BPH -continue Flomax 0.8 mg once daily, finasteride 5 mg once daily COPD/ISABELL -not in acute exacerbation -albuterol p.r.n. for wheezing -CPAP during night Chronic constipation -milk of Mag p.r.n. -Dulcolax suppository p.r.n. -naldemedine 0.2 mg and naloxegol 25 mg once daily -linaclotide 290 mcg once daily Microcytic hypochromic anemia -H&H .10/18 -follow up on iron panel Code Status: Full code Line/tube: PIV DVT prophylaxis: Eliquis Nutrition: Heart healthy PT: Yes Patient's current condition is guarded we will continue to follow patient in a.m. Date of Service: Sep 04, 2024 Billing Provider: ISHA STUART MD Common Visit Codes: [id number] INP/OBS CARE(HIGH) ISHA STUART MD Sep 04, 2024 21:10
[2024-09-04] MEDS: polyethylene glycol 3350 17gm powd pack PO SCH (21:48)
[2024-09-04 22:00] VITALS: BP 107/56; PULSE 63; RESP 20; TEMP 98.3; O2SAT 93
[2024-09-05 05:28] LABS: MEAN PLATELET VOLUME 7.5 FL (7.4-10.4); RED CELL DISTRIBUTION WIDTH 21.2 % (11.5-14.5)
[2024-09-05 06:00] VITALS: BP 132/67; PULSE 91; RESP 16; TEMP 98.1; O2SAT 96
[2024-09-05 06:00] LABS: CREATININE 0.53 MG/DL (0.60-1.10); TOTAL CARBON DIOXIDE 27.5 MMOL/L (24-32); eCRCL 153 ML/MIN; eGFR > 90 ML/MIN
[2024-09-05 08:00] VITALS: RESP 16; O2SAT 96
[2024-09-05] MEDS: ondansetron 4mg rapidly disintigrating tab PO PRN (09:57)
[2024-09-05 10:00] VITALS: BP 132/67; PULSE 91; RESP 16; TEMP 98; O2SAT 96
--- NOTE | 2024-09-05 10:53 | PROGRESS NOTE- Residence ---
Progress Note - Resident Providers to CC Resident Creating Document: MORRO LAMBERT CC: DARIO MCCANN DO ~ Antibiotic Timeout Antibiotic Ordered?: Yes Subjective Patient was seen at bedside this morning. He continues to feel better from a respiratory standpoint. She does continue with a sore throat. He also continues with significant constipation Objective Vital Signs Date Time Temp Pulse Resp B/P (MAP) Pulse Ox O2 Delivery O2 Flow Rate FiO2 09/05/24 09:42 91 09/05/24 06:03 16 09/05/24 06:00 98.1 132/67 (88) 96 Room Air 09/04/24 19:23 0 21 Result Diagram: 09/05/24 0455 09/05/24 0455 General: Obese habitus, awake, alert oriented to place, time, and person HEENT: No pallor present, no icterus, moist mucous membranes Neck: No masses and tenderness Resp: Unlabored. Improved crackles in left lung base. No wheezes or rhonchi Chest: Normal expansion Cardiovascular: Regular Rate and rhythm, normal S1 and S2 without murmur, rub or gallop Abdomen: Soft and nontender, no organomegaly, no guarding and rigidity, bowel sounds present Neuro: No focal weakness in the upper and lower limb muscles, power of the muscles 5/5 bilateral upper and lower extremities, normal reflexes bilaterally. Cranial nerves intact Extremities: He has chronic ectatic changes in excoriation in both lower extremities. No erythema observed, he has trace edema. No cyanosis or clubbing Skin: Warm and Dry. No lesions Psych: Normal affect Coagulation Studies Laboratory Tests Test 09/02/24 12:45 Prothrombin Time 10.4 SECONDS (9.0-12.0) INR International Normalized Ratio 1.0 INR Activated Partial Thromboplast Time 26 SECONDS (22-32) Coagulation Comments Plan Plan Infectious Disease Progress Note: Hospital Acquired Pneumonia, lower lobe, bilateral History of recurrent MRSA lower extremity cellulitis Patient's white count continues to trend down Procalcitonin normalized Chest x-ray shows left lower lobe infiltrate Chest CT shows extensive bilateral pulmonary airspace consolidation most pronounced within the lower lobes. Follow-up to resolution to exclude underlying lesion Blood cultures and MRSA screen are negative Received Zosyn, azithromycin, and ceftriaxone on admission On Levaquin and vancomycin, day 3 Patient discussed in detail with Dr. Mccann, plan: Continue IV Levaquin and Vancomycin while in hospital Since prior MRSA was sensitive to erythromycin, it is likely sensitive to clindamycin Discharge plan is PO Clindamycin 300mg TID and switch levaquin to PO. Continue for 7 more days Other comorbidities include: Constipation CHF Hypertension Atrial fibrillation COPD RADHA BPH Venous insufficiency TIA Management per hospitalist team Disposition: Continue care in ortho floor. Morro Sy MD Internal Medicine Resident PGY-2 Date of Service: Sep 05, 2024 Billing Provider: DARIO MCCANN DO Addendum Patient seen and examined with Dr. hSelton; agree with the above assessment and plan. Carlitos was feeling much better today and was looking forward to going home. He was seen on RA but stated he had O2 already at home. He will finish up a week's course with PO Levaquin/Clinda. He was given info for follow up in the ID office MORRO LAMBERT Sep 05, 2024 10:53 DARIO MCCANN DO Sep 05, 2024 23:36
[2024-09-05] MEDS: magnesium hydroxide 30ml (MOM) UD suspension PO PRN (12:17)
[2024-09-05 18:30] VITALS: BP 98/58; PULSE 68; RESP 19; TEMP 96.9; O2SAT 92
[2024-09-05] MEDS: VANCOMYCIN LEVEL IV ONE (18:30)
--- NOTE | 2024-09-05 19:32 | PROGRESS NOTE ---
Daily Progress Note Providers to CC ~ Antibiotic Timeout Antibiotic Ordered?: Yes Subjective Patient was seen in his room no new concerns he is cleared by Infectious Disease specialist for home discharge. Patient also had physical therapy evaluation done in he walked 30 ft twice today with front wheel walker . Patient discharged by PT with barriers and physical therapy note reviewed Objective Vital Signs Date Time Temp Pulse Resp B/P (MAP) Pulse Ox O2 Delivery O2 Flow Rate FiO2 09/05/24 18:30 96.9 68 19 98/58 (71) 92 Room Air 09/04/24 19:23 0 21 Result Diagram: 09/05/24 0455 09/05/24 0455 General-patient not in any acute distress, alert awake oriented, chronically ill-appearing, looks comfortable HEENT-atraumatic normocephalic, neck supple without elevated JVD, no thyromegaly or carotid bruit. No lymphadenopathy bilaterally. Normal oropharynx no large glands bilaterally , poor dentition Eyes-no icterus or pallor seen in eyes Chest-clear to auscultation bilaterally, breathing nonlabored no tachypnea, no wheezing, no crepitation, no crackles. Heart-S1-S2 normal, regular heart rate no murmur Abdomen bowel sounds positive on auscultation, soft nondistended nontender no guarding, no rigidity Skin no active skin rash , /signs of chronic hyperpigmentation present over lower extremity Neurology-grossly intact, nonfocal alert awake oriented Extremity- no pedal edema able to move all 4 extremities, there is no active cellulitis over legs . Psychiatry - patient is not confused or agitated cooperated during physical examination Coagulation Studies Laboratory Tests Test 09/02/24 12:45 Prothrombin Time 10.4 SECONDS (9.0-12.0) INR International Normalized Ratio 1.0 INR Activated Partial Thromboplast Time 26 SECONDS (22-32) Coagulation Comments Problem\\Assessment\\Plan 68-year-old male with past medical history of CVA/TIA, AFib on Eliquis, hyperlipidemia, hypertension, COPD, ISABELL, obesity, MRSA cellulitis presented to the ER with chief complaints of generalized weakness, cough, and sore throat. Patient went to his PCP recently and they prescribed him nystatin for sore throat Plan Plan Bilateral Pneumonia- CAP History of MRSA cellulitis - presented with sob, cough -ct chest showing- Extensive bilateral pulmonary airspace consolidation most pronounced within the lower lobes. -WBC 17.6, procalcitonin 0.6 -with history of previous MRSA infections, patient is empirically started on IV vancomycin pharmacy to dose and IV levofloxacin 750 mg once daily -Dr. Luke, ID consulted and following the patient As per infectious disease team" Discharge plan is PO Clindamycin 300mg TID and switch levaquin to PO. Continue for 7 more days" Sepsis- POA Likely 2/2 pneumonia Hypotension - 1L fluid bolus given -continue NS @ 100cc/hr - Monitor to maintain MAP >65 Ascending aorta dilatation -CT chest showed ascending aorta dilatation of 4.3 cm -CTVS consult outpatient CVA/TIA -continue aspirin Eliquis -not on statins at home Atrial fibrillation -continue amiodarone 200 mg once daily -continue Eliquis 5 mg twice daily Hypertension Hyperlipidemia -current blood pressures are soft, metoprolol and losartan are on hold BPH -continue Flomax 0.8 mg once daily, finasteride 5 mg once daily COPD/ISABELL -not in acute exacerbation -albuterol p.r.n. for wheezing -CPAP during night Chronic constipation -milk of Mag p.r.n. -Dulcolax suppository p.r.n. -naldemedine 0.2 mg and naloxegol 25 mg once daily -linaclotide 290 mcg once daily Microcytic hypochromic anemia -H&H .10/18 -follow up on iron panel Code Status: Full code Line/tube: PIV DVT prophylaxis: Eliquis Nutrition: Heart healthy PT: Yes Patient's current condition is guarded we will continue to follow patient in a.m. we will plan to discharge patient in a.m. if clinically stable and cleared by Physical therapy Date of Service: Sep 05, 2024 Billing Provider: ISHA STUART MD Common Visit Codes: [id number] INP/OBS CARE(HIGH) ISHA STUART MD Sep 05, 2024 19:32
[2024-09-05 20:00] VITALS: RESP 19; O2SAT 92
[2024-09-05 22:00] VITALS: BP 123/57; PULSE 64; RESP 16; TEMP 97.9; O2SAT 94
[2024-09-06 05:24] LABS: MEAN PLATELET VOLUME 7.4 FL (7.4-10.4); RED CELL DISTRIBUTION WIDTH 20.7 % (11.5-14.5)
[2024-09-06 05:42] LABS: CREATININE 0.57 MG/DL (0.60-1.10); TOTAL CARBON DIOXIDE 30.2 MMOL/L (24-32); eCRCL 142 ML/MIN; eGFR > 90 ML/MIN
[2024-09-06 06:33] VITALS: BP 133/76; PULSE 89; RESP 15; TEMP 98.7; O2SAT 97
[2024-09-06 07:14] VITALS: BP_SYST 133; PULSE 89
--- NOTE | 2024-09-06 09:16 | PROGRESS NOTE- Residence ---
Progress Note - Resident Providers to CC Resident Creating Document: ALONZO LAMBERT CC: DARIO FREEMAN DO ~ Objective Vital Signs Date Time Temp Pulse Resp B/P (MAP) Pulse Ox O2 Delivery O2 Flow Rate FiO2 09/06/24 07:14 89 09/06/24 07:13 16 09/06/24 06:33 98.7 133/76 (95) 97 Room Air 09/05/24 20:00 0.0 21 Result Diagram: 09/06/24 0506 09/06/24 0506 Coagulation Studies Laboratory Tests Test 09/02/24 12:45 Prothrombin Time 10.4 SECONDS (9.0-12.0) INR International Normalized Ratio 1.0 INR Activated Partial Thromboplast Time 26 SECONDS (22-32) Coagulation Comments Date of Service: Sep 06, 2024 Billing Provider: DARIO FREEMAN LEONARDO LUIS Sep 06, 2024 09:16
[2024-09-06] MEDS ORDERED: CLIN-232 PO (09:52)
[2024-09-06] MEDS ORDERED: LEVO-65 PO (09:52)
[2024-09-06] MEDS ORDERED: VANCOMYCIN LEVEL IV ONE (10:30)
[2024-09-06] MEDS: bisacodyl 5mg tablet.DR PO ONE (11:05)
[2024-09-06 11:06] VITALS: RESP 18
--- NOTE | 2024-09-06 20:01 | DISCHARGE SUMMARY ---
Discharge Summary Providers to CC ~ Discharge Summary Admission Diagnosis: acute hypoxic resp failure 2/2 copd exacerbation Hospital Course DATE OF ADMISSION: September 02, 2024 DATE OF DISCHARGE: September 06, 2024 CBC testing done on September 06, 2024 WBC 10.6 hemoglobin 10.0 hematocrit 30.9 platelet count 287. Serum chemistry done on September 06, 2024 sodium 139 potassium 4.5 normal renal function TIBC 349 serum iron 11 normal liver enzymes. Procalcitonin 0.13. Blood culture showed no growth after four days. Throat culture showed normal cooper . CT CHESTIMPRESSION: Extensive bilateral pulmonary airspace consolidation most pronounced within the lower lobes. Follow-up to resolution to exclude underlying lesion. Atherosclerotic disease. Dilatation of the ascending aorta to 4.[address] HEAD-IMPRESSION: 1. No acute intracranial injury. 2. Atrophy CHEST,SINGLE VIEW-Left lower lobe infiltrate Discharge Diagnosis\\Comment: Hospital Acquired Pneumonia, lower lobe, bilateral History of recurrent MRSA lower extremity cellulitis Constipation CHF Hypertension Atrial fibrillation COPD RADHA BPH Venous insufficiency TIA Chronic pain Operations\\Procedures: None Consultants: Dr Mccann Complications: None Condition on DC: Stable New Medications: Clindamycin HCl (Clindamycin HCl) 150 Mg Capsule 2 CAP PO Q8H for 7 Days, #42 CAP Levofloxacin (Levofloxacin) 500 Mg Tablet 500 MG PO DAILY for 7 Days, #7 TAB Continued Medications: Amiodarone Hcl (Cordarone) 200 Mg Tablet 200 MG PO DAILY, TAB Apixaban (Eliquis) 5 Mg Tablet 1 TAB PO Q12H for 30 Days, #60 TAB 0 Refills Aspirin (Aspirin) 325 Mg Tablet 1 TAB PO DAILY for 30 Days, #30 TAB Buprenorphine Hcl (Buprenorphine Hcl) 8 Mg Tab.subl 1 TAB SL TID PRN for pain Bupropion HCl (Bupropion Xl) 150 Mg Tab.er.24h 1 TAB PO DAILY Clonazepam (Clonazepam) 0.5 Mg Tablet 0.5 MG PO TID PRN for for anxiety/agitation Docusate Sodium (Docusate Sodium) 100 Mg Capsule 1 CAP PO Q12H for constipation for 7 Days, #14 CAP 0 Refills Duloxetine HCl (Duloxetine HCl) 30 Mg Capsule. 3 CAP PO DAILY Finasteride (Finasteride) 5 Mg Tablet 1 TAB PO DAILY Fluconazole* (Diflucan*) 150 Mg Tablet 1 TAB PO Q72H Fluoxetine HCl (Fluoxetine HCl) 10 Mg Capsule 2 CAP PO DAILY Lactobacillus Rhamnosus (Culturelle) 10 Billion Cell Capsule 1 CAP PO DAILY for 30 Days, #30 CAP 0 Refills Levothyroxine Sodium (Levothyroxine Sodium) 50 Mcg Tablet 1 TAB PO DAILY Linaclotide (Linzess) 290 Mcg Capsule 1 CAP PO DAILY for 30 Days, #30 CAP 0 Refills Naldemedine Tosylate (Symproic) 0.2 Mg Tablet 1 TAB PO DAILY for 30 Days, #30 TAB 0 Refills Naloxegol Oxalate (Movantik) 25 Mg Tablet 4 TAB Nystatin (Nystatin) 100,000 Unit/Ml Oral.susp 4 ML PO QID Ondansetron HCl (Ondansetron HCl) 8 Mg Tablet 1 TAB PO Q8H PRN for nausea/vomiting Oxycodone Hcl/Acetaminophen (Oxycodone-Acetaminophen 10-325) 10 Mg-325 Mg Tablet 1 TAB PO BID PRN for severe pain Pantoprazole Sodium (Pantoprazole Sodium) 40 Mg Tablet.dr 1 TAB PO BID Pregabalin (Pregabalin) 100 Mg Capsule 1 CAP PO TID Tamsulosin Hcl (Flomax) 0.4 Mg Cap.sr.24h 2 CAP PO DAILY Discontinued Medications: Aspirin (Aspirin) 325 Mg Tablet Discharge Summary: 68-year-old male with past medical history of CVA/TIA, AFib on Eliquis, hyperlipidemia, hypertension, COPD, ISABELL, obesity, MRSA cellulitis presented to the ER with chief complaints of generalized weakness, cough, and sore throat. Patient went to his PCP recently and they prescribed him nystatin for sore throat Bilateral Pneumonia- CAP History of MRSA cellulitis - presented with sob, cough -ct chest showing- Extensive bilateral pulmonary airspace consolidation most pronounced within the lower lobes. -WBC 17.6, procalcitonin 0.6 -with history of previous MRSA infections, patient is empirically started on IV vancomycin pharmacy to dose and IV levofloxacin 750 mg once daily -Dr. Luke, ID consulted and following the patient As per infectious disease team" Discharge plan is PO Clindamycin 300mg TID and switch levaquin to PO. Continue for 7 more days" Sepsis- POA Likely 2/2 pneumonia Hypotension - 1L fluid bolus given -continue NS @ 100cc/hr - Monitor to maintain MAP >65 Ascending aorta dilatation -CT chest showed ascending aorta dilatation of 4.3 cm -CTVS consult outpatient CVA/TIA -continue aspirin Eliquis -not on statins at home Atrial fibrillation -continue amiodarone 200 mg once daily -continue Eliquis 5 mg twice daily Hypertension Hyperlipidemia -current blood pressures are soft, metoprolol and losartan are on hold BPH -continue Flomax 0.8 mg once daily, finasteride 5 mg once daily COPD/ISABELL -not in acute exacerbation -albuterol p.r.n. for wheezing -CPAP during night Chronic constipation -milk of Mag p.r.n. -Dulcolax suppository p.r.n. -naldemedine 0.2 mg and naloxegol 25 mg once daily -linaclotide 290 mcg once daily Microcytic hypochromic anemia -H&H 9.10/18 -follow up on iron panel Patient's clinical condition improved during hospitalization he has been afebrile and getting discharged home on home health services today. Patient is seen and examined on the day of discharge discharge instructions provided to the patient. All questions and concerns answered to the best of my professional medical knowledge.Please follow-up with primary manager primary care in 1-2 week, repeat CBC procalcitonin sed rate and BNP with PCP. Please read side effects of all your medication and discussed with PCP. Patient is taking multiple high- risk controlled medication which can increase patient's risk for falls and fracture. Activity as tolerated. please provide fall precaution documents. Further management for patient's chronic medical issues per PCP General-patient not in any acute distress, alert awake oriented, chronically ill-appearing, looks comfortable HEENT-atraumatic normocephalic, neck supple without elevated JVD, no thyromegaly or carotid bruit. No lymphadenopathy bilaterally. Normal oropharynx no large glands bilaterally , poor dentition Eyes-no icterus or pallor seen in eyes Chest-clear to auscultation bilaterally, breathing nonlabored no tachypnea, no wheezing, no crepitation, no crackles. Heart-S1-S2 normal, regular heart rate no murmur Abdomen bowel sounds positive on auscultation, soft nondistended nontender no guarding, no rigidity Skin no active skin rash , /signs of chronic hyperpigmentation present over lower extremity Neurology-grossly intact, nonfocal alert awake oriented Extremity- no pedal edema able to move all 4 extremities, there is no active cellulitis over legs . Psychiatry - patient is not confused or agitated cooperated during physical examination *Problems/Diagnosis: (1) Cellulitis of both lower extremities Status: Acute Total Time Spent on D/C: > 30 Minutes Date of Service: Sep 06, 2024 Billing Provider: ISHA STUART MD Common Visit Codes: 34950-DJS/OBS DISCH DAY >30min ISHA STUART MD Sep 06, 2024 19:58
== END 2024-09-06 12:00 | disposition home health service (06) | DRG 871 ==
LOC: ER 12:07 → ED HOLD 15:24 → EDBEDREQ 17:03 → ORTHO 4S 18:02
PROVIDERS: ADMIT Nurse Practitioner Family; ATTEND Nurse Practitioner Family
DX: A41.9 Sepsis, unspecified organism (principal); J18.9 Pneumonia, unspecified organism; J69.0 Pneumonitis due to inhalation of food and vomit; J96.01 Acute respiratory failure with hypoxia; E87.3 Alkalosis; G45.9 Transient cerebral ischemic attack, unspecified; L03.115 Cellulitis of right lower limb; L03.116 Cellulitis of left lower limb; J44.0 Chronic obstructive pulmonary disease with (acute) lower respiratory infection; E78.00 Pure hypercholesterolemia, unspecified; F41.9 Anxiety disorder, unspecified; I48.91 Unspecified atrial fibrillation; I77.810 Thoracic aortic ectasia; I87.2 Venous insufficiency (chronic) (peripheral); I50.9 Heart failure, unspecified; K59.09 Other constipation; N40.0 Benign prostatic hyperplasia without lower urinary tract symptoms; E66.9 Obesity, unspecified; Z96.643 Presence of artificial hip joint, bilateral; G47.30 Sleep apnea, unspecified; I11.0 Hypertensive heart disease with heart failure; F10.10 Alcohol abuse, uncomplicated; D50.9 Iron deficiency anemia, unspecified; G47.33 Obstructive sleep apnea (adult) (pediatric); Z98.1 Arthrodesis status; Z88.1 Allergy status to other antibiotic agents; Z88.8 Allergy status to other drugs, medicaments and biological substances; Z79.899 Other long term (current) drug therapy; Z79.01 Long term (current) use of anticoagulants; Z88.7 Allergy status to serum and vaccine
CPT/HCPCS: 36415; 36600; 70450; 71045; 71250; 80053; 80202; 82248; 82550; 82553; 82728; 82803; 83540; 83550; 83605; 83690; 83735; 83874; 83880; 84145; 84439; 84443; 84466; 84484; 85008; 85018; 85025; 85610; 85730; 86885; 86900; 86901; 87040; 87081; 87811; 92508; 92616; 93005; 94640; 94760; 96374; 96375; 97116; 97161; 97530; 99285; G0378; J0456; J0692; J1956; J2270; J2405; J2543; J2919; J3373; J3374; J3375; J7030

== ENCOUNTER 2024-10-11 09:09 | Emergency (ER) | payer MEDICARE ==
[~2024-10-11] VITALS: Ht 188 cm; Wt 100.0 kg
[~2024-10-11 09:09] MED LIST changes: -AMI200T PO; +AMIO200T76 PO; +ASPI-10 PO; -BISA10SU60 RC; +DIF150T PO; -DOCU-148 PO; +DOCU100C41 PO; -DRY EYE EACHEYE; +FLUO-331 PO; +LACT1CAP26 PO; -LACT1CAP65 PO; +LEVO50TA8 PO; -LOSA50TA64 PO; +NYST100069 PO; -eliquis PO
--- NOTE | 2024-10-11 09:19 | ELECTROCARDIOGRAPH REPORT ---
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
[2024-10-11 09:20] VITALS: TEMP 97.3
[2024-10-11 09:37] LABS: MEAN PLATELET VOLUME 7.5 FL (7.4-10.4); RED CELL DISTRIBUTION WIDTH 18.9 % (11.5-14.5)
--- NOTE | 2024-10-11 09:39 | Physician Documentation ---
History of Present Illness General Chief Complaint: Shortness of Breath Stated Complaint: MULTIPLE MEDICAL COMPLAINTS Time Seen by MD: 09:38 Primary Medical Doctor: Dr. Ruben gonzalez. Nailer Operator: Dr. Florentino Vargas History of Present Illness Initial Comments The patient is a 69-year-old male who states he has a history of some CHF who presents to the emergency department with weakness body aches some chills cough and shortness of breath. Patient states he also has a sore throat which he states he has had for several days he says he has additionally had the other symptoms for the last several days. Patient denies any fevers. The patient denies any vomiting he denies any diarrhea patient's symptoms are moderate and persistent. Patient states he has been in out of the hospitalist several times in the last three months with sepsis. The patient complains of diffuse myalgias and feels that he is becoming septic again he states he completed his antibiotics two days ago. Medication Reconciliation Allergies: Coded Allergies: rifampin (Verified Allergy, Unknown, 09/02/24) tetanus and diphtheria toxoids (Unverified Allergy, Unknown, 09/02/24) Scheduled Amiodarone Hcl (Cordarone), 200 MG PO DAILY, (Reported) Apixaban (Eliquis), 1 TAB PO Q12H, (Reported) Aspirin (Aspirin), 1 TAB PO DAILY, (Reported) Bupropion HCl (Bupropion Xl), 1 TAB PO DAILY, (Reported) Docusate Sodium (Docusate Sodium), 1 CAP PO Q12H, (Reported) Duloxetine HCl (Duloxetine HCl), 3 CAP PO DAILY, (Reported) Finasteride (Finasteride), 1 TAB PO DAILY, (Reported) Fluconazole* (Diflucan*), 1 TAB PO Q72H, (Reported) Fluoxetine HCl (Fluoxetine HCl), 2 CAP PO DAILY, (Reported) Lactobacillus Rhamnosus (Culturelle), 1 CAP PO DAILY, (Reported) Levothyroxine Sodium (Levothyroxine Sodium), 1 TAB PO DAILY, (Reported) Linaclotide (Linzess), 1 CAP PO DAILY, (Reported) Naldemedine Tosylate (Symproic), 1 TAB PO DAILY, (Reported) Nystatin (Nystatin), 4 ML PO QID, (Reported) Pantoprazole Sodium (Pantoprazole Sodium), 1 TAB PO BID, (Reported) Pregabalin (Pregabalin), 1 CAP PO TID, (Reported) Tamsulosin Hcl (Flomax), 2 CAP PO DAILY, (Reported) Scheduled PRN Buprenorphine Hcl (Buprenorphine Hcl), 1 TAB SL TID PRN for pain, (Reported) Clonazepam (Clonazepam), 0.5 MG PO TID PRN for for anxiety/agitation, (Reported) Ondansetron HCl (Ondansetron HCl), 1 TAB PO Q8H PRN for nausea/vomiting, (Reported) Oxycodone Hcl/Acetaminophen (Oxycodone-Acetaminophen 10-325), 1 TAB PO BID PRN for severe pain, (Reported) Miscellaneous Medications Naloxegol Oxalate (Movantik), 4 TAB, (Reported) Past Medical History Past Medical History: CVA/TIA/Stroke, Sinusitis, Atrial Fibrillation, Congestive Heart Failure, High Cholesterol, Hypertension, COPD, Sleep Apnea, *GI/HEPATOBILIARY*, Cellulitis, Anxiety Past Surgical History: no surgical history Smoking: Quit greater than 1 year Alcohol Use: Sober Drug Use: none Lives with: Spouse Lives In: Home Occupation: retired Review of Systems All Other Systems at this time: Reviewed and Negative Physical Exam Physical Exam Vital Signs: Temperature: 97.3, Source: Temporal, Heart Rate: 83, Respiratory Rate: 16, BP: 124/63, Pulse Oximetry: 94, Weight: 100.000 Physical Exam VITALS: Reviewed and as above. GENERAL: Alert, no apparent distress. HEENT: Normocephalic, atraumatic, PERRL, EOMI, dry mucosa, no erythema RESPIRATORY: Slightly diminished breath sounds bilaterally no respiratory distress. CHEST: No accessory muscle use, no retractions CV: Regular rate, rhythm, no edema, no murmur, No: JVD GI: Soft, non-tender, bowels sounds present, no rebound, guarding, or rigidity BACK: No CVA tenderness, or swelling MUSCULOSKELETAL: No deformities, no edema SKIN: Warm and dry, no rash NEURO: Oriented x4, No motor or sensory deficit PSYCH: Normal mood and affect, no agitation Progress Results/Orders Results/Orders Orders - OHLPILLO REBOLLAR MD Chest,Single View (10/11/24 09:28) Monitor (10/11/24 09:13) Saline Lock (10/11/24 09:13) Oxygen (10/11/24 09:13) Ct Chest (10/11/24 14:07) Completed Orders - OHLFS,PILLO Hayward MD Chest,Single View (10/11/24 09:28) Cbc/Diff (10/11/24 09:13) BMP (10/11/24 09:13) PBNP (10/11/24 09:13) Electrocardiogram (10/11/24 09:13) Hs Troponin I W Calculations (10/11/24 09:13) Hs Troponin I W Calculations (10/11/24 11:13) Procalcitonin (10/11/24 10:12) Ondansetron Inj. (Zofran 4mg/2ml Vial) (10/11/24 10:35) Normal Saline 1000ml (0.9% Sodium Chlori (10/11/24 10:35) Oxycodone/Acetaminophen Tablet (Percocet (10/11/24 12:25) Ct Chest (10/11/24 14:07) Urinalysis (10/11/24 15:04) Normal Saline 1000ml (0.9% Sodium Chlori (10/11/24 15:05) Vital Signs 10/11/24 10/11/24 10/11/24 10/11/24 09:20 09:41 09:55 10:30 Temp 97.3 Pulse 83 69 76 Resp 16 18 18 B/P (MAP) 124/63 150/89 (109) 138/73 (94) Pulse Ox 94 94 95 95 O2 Delivery Nasal Cannula* O2 Flow Rate 1.0 1 1.0 FiO2 24 10/11/24 10/11/24 10/11/24 10/11/24 11:48 12:39 12:45 13:06 Pulse 101 58 Resp 16 16 16 16 B/P (MAP) 171/87 (115) 176/97 (123) Pulse Ox 92 96 O2 Flow Rate 1.0 1.0 10/11/24 17:56 Pulse 75 Resp 16 B/P (MAP) 161/96 Pulse Ox 94 Laboratory Tests Test 10/11/24 09:24 10/11/24 12:03 10/11/24 16:10 White Blood Count 13.2 H Red Blood Count 4.37 L Hemoglobin 10.4 L Hematocrit 32.3 L Mean Corpuscular Volume 73.9 L Mean Corpuscular Hemoglobin 23.8 L Mean Corpuscular Hemoglobin Concent 32.1 L Red Cell Distribution Width 18.9 H Platelet Count 277 Mean Platelet Volume 7.5 Neutrophils (%) (Auto) 69.0 Lymphocytes (%) (Auto) 19.9 L Monocytes (%) (Auto) 7.9 Eosinophils (%) (Auto) 2.7 Basophils (%) (Auto) 0.5 Neutrophils # (Auto) 9.1 H Lymphocytes # (Auto) 2.6 Monocytes # (Auto) 1.0 H Eosinophils # (Auto) 0.4 Basophils # (Auto) 0.1 CBC Comment Platelet Estimate Normal Red Blood Cell Morphology Perf Basophilic Stippling Anisocytosis 2+ Microcytosis 1+ Gab Cells Few Elliptocytes Few Sodium Level 141 Potassium Level 3.8 Chloride Level 106 Carbon Dioxide Level 29.2 Anion Gap 6 L Blood Urea Nitrogen 12 Creatinine 0.64 Estimated GFR/1.73 m2 > 90 BUN/Creatinine Ratio 18.8 Glucose Level 115 H Calcium Level 8.9 Troponin I High Sensitivity 6 6 Pro-B-Type Natriuretic Peptide < 30 Albumin 3.2 L Chemistry Comments Troponin I High Sens Percent Delta 0 Troponin I Hi Sens Absolute Change 0 Procalcitonin < 0.05 Urine Specimen Description Voided Urine Color Yellow Urine Clarity Clear Urine pH 7.5 Urine Specific [place] 1.015 Urine Protein Negative Urine Glucose (UA) Negative Urine Ketones Negative Urine Occult Blood Negative Urine Nitrite Negative Urine Bilirubin Negative Urine Urobilinogen 0.2 Urine Leukocyte Esterase Negative Volume Urine Centrifuged 10 ml Urine Comment EKG/XRAY/CT/US/VASC/MRI Chest X-Ray : Additional Comments Patient: KAY SAEED Medical Record: [id number] [facility] 1955, Age: 69 Sex: Male Location: ER Patient Status: REG ER Service Date/Time: 10/11/24927 Ordering Physician: PILLO HENAO MD Exam: CHEST,SINGLE VIEW EXAM: DI CHEST,SINGLE VIEW HISTORY: CP COMPARISON: CT CT CHEST on DOS: 09/02/24, DI CHEST,SINGLE VIEW on DOS: 09/02/24, DI CHEST,SINGLE VIEW on DOS: 07/05/24, DI CHEST,SINGLE VIEW on DOS: 06/13/24, DI CHEST,SINGLE VIEW on DOS: 05/16/24 TECHNIQUE: Portable upright AP view of the chest was performed. FINDINGS: No pneumothorax, new infiltrates, or pulmonary edema. The heart is not enlarged. The right humeral head is high riding, and the right AC joint is widened, similar to that seen previously. Spinal cord stimulator is reidentified. IMPRESSION: No acute intrathoracic process. Electronically Signed by:MISHA TOLENTINO MD Date & Time: 10/11/241452 Dictated by: MISHA TOLENTINO MD Dictation date and time: 10/11/241452 Primary Care Provider: NO PRIMARY CARE PROVIDER cc: PILLO HENAO MD ~ CT : Impression [place] [id number] CAT SCAN Patient: KAY SAEED Medical Record: [id number] [facility] : 1955, Age: 69 Sex: Male Location: ER Patient Status: REG ER Service Date/Time: 10/11/241406 Ordering Physician: PILLO HENAO MD Exam: CT CHEST CT CT CHEST INDICATION: sob EXAM DATE: 10/11/2024 02:04 PM COMPARISON: CT CT CHEST on DOS: 09/02/24, CTA CHEST on DOS: 03/21/22, CT CHEST on DOS: 11/24/21 RADIATION DOSE: CTDIvol: 18 mGy, DLP: 763 mGy*cm PROCEDURE: Helical CT images were obtained of the chest Sagittal and coronal reconstructions are provided. ADDITIONAL IMAGES / REFORMATS: None All CT scans at this medical facility are performed using dose modulation techniques as appropriate to a performed exam including the following: Automated exposure control was utilized; adjustment of the MA and/or KV according to patient size; and use of iterative reconstruction technique. FINDINGS: Bones: Scattered degenerative changes are noted. Visualized Abdomen: Similar 4.1 cm left kidney cystic lesion. Chest Wall: Normal. Soft tissues: Normal. Mediastinum: Normal. Heart: Coronary artery calcifications are noted. Vessels: Similar ascending thoracic aorta dilation to 4.4 cm. Lymph Nodes: Normal. Pleura: Normal. Airways: Normal. Lung: Decreased multifocal ground glass opacity, which could be seen with pneumonia. Other: A spinal stimulator is seen. IMPRESSION: Decreased multifocal ground glass opacity compared to prior CT, which could be seen with improving pneumonia. Electronically Signed by:PRAKASH BRANDON MD Date & Time: 10/11/24 1442 Dictated by: PRAKASH BRANDON MD Dictation date and time: 10/11/24 1407 Medical Decision Making Findings The patient presented with vague complaints of myalgias and not feeling well the patient's exam was unremarkable his labs were reviewed they were unremarkable prior hospitalizations have been reviewed there was no evidence of acute current infectious etiology the patient has been admitted multiple times in the past he has recently completed an antibiotic course. At this point the patient has remained hemodynamically stable in the emergency department his chest x-ray was reviewed it demonstrated a normal cardiac silhouette normal mediastinum and normal lung no I interpreted as chest x-ray has been a normal appearing c hest x-ray I have reviewed the radiologist's interpretation as well I have additionally. 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 A CT was obtained to evaluate possible continuing pneumonia there does not appear to any be any significant pneumonia at this time he does appear to be healing from a recent pneumonia. The patient was discharged Departure Disposition: 01 HOME / SELF CARE / HOMELESS Impression: Primary Impression: Myalgia Discharge Instructions: Weakness Referrals: NO PRIMARY CARE PROVIDER (PCP) Signature Scribe Signature: No scribe Attestation: The note accurately reflects work and decisions made by me.Pillo Henao MD 10/13/24 20:19 PILLO HENAO MD Oct 11, 2024 09:39
[2024-10-11 10:06] LABS: CREATININE 0.64 MG/DL (0.60-1.10); PRO BRAIN NATRIURETIC PEPTIDE < 30 PG/ML (0-125); TOTAL CARBON DIOXIDE 29.2 MMOL/L (24-32); eCRCL 127 ML/MIN; eGFR > 90 ML/MIN
[2024-10-11 10:31] LABS: ELLIPTOCYTES FEW; PLATELET ESTIMATE NORMAL
[2024-10-11] MEDS: ondansetron/PF 4mg/2ml inj IV ONE (11:15)
[2024-10-11] MEDS: normal saline 1000ML IV soln IVB ONE ×2 (12:38→15:50)
--- NOTE | 2024-10-11 14:44 | RADIOLOGY REPORT ---
CT CT CHEST INDICATION: sob EXAM DATE: 10/11/2024 02:04 PM COMPARISON: CT CT CHEST on DOS: 09/02/24, CTA CHEST on DOS: 03/21/22, CT CHEST on DOS: 11/24/21 RADIATION DOSE: CTDIvol: 18 mGy, DLP: 763 mGy*cm PROCEDURE: Helical CT images were obtained of the chest Sagittal and coronal reconstructions are pr ovided. ADDITIONAL IMAGES / REFORMATS: None All CT scans at this medical facility are performed using dose modulation techniques as appropriate t o a performed exam including the following: Automated exposure control was utilized; adjustment of th e MA and/or KV according to patient size; and use of iterative reconstruction technique. FINDINGS: Bones: Scattered degenerative changes are noted. Visualized Abdomen: Similar 4.1 cm left kidney cystic lesion. Chest Wall: Normal. Soft tissues: Normal. Mediastinum: Normal. Heart: Coronary artery calcifications are noted. Vessels: Similar ascending thoracic aorta dilation to 4.4 cm. Lymph Nodes: Normal. Pleura: Normal. Airways: Normal. Lung: Decreased multifocal ground glass opacity, which could be seen with pneumonia. Other: A spinal stimulator is seen. IMPRESSION: Decreased multifocal ground glass opacity compared to prior CT, which could be seen with improving pn eumonia.
--- NOTE | 2024-10-11 14:55 | RADIOLOGY REPORT ---
EXAM: DI CHEST,SINGLE VIEW HISTORY: CP COMPARISON: CT CT CHEST on DOS: 09/02/24, DI CHEST,SINGLE VIEW on DOS: 09/02/24, DI CHEST,SINGLE VIEW o n DOS: 07/05/24, DI CHEST,SINGLE VIEW on DOS: 06/13/24, DI CHEST,SINGLE VIEW on DOS: 05/16/24 TECHNIQUE: Portable upright AP view of the chest was performed. FINDINGS: No pneumothorax, new infiltrates, or pulmonary edema. The heart is not enlarged. The right humeral he ad is high riding, and the right AC joint is widened, similar to that seen previously. Spinal cord st imulator is reidentified. IMPRESSION: No acute intrathoracic process.
[2024-10-11 16:25] LABS: LEUKOCYTE ESTERASE ,URINE NEGATIVE (Neg); NITRITES, URINE NEGATIVE (Neg); OCCULT BLOOD,URINE NEGATIVE (Neg)
[2024-10-11 16:28] LABS: UA COLLECTION TYPE VOIDED
[2024-10-11 17:56] VITALS: BP 161/96; PULSE 75; RESP 16; O2SAT 94
== END 2024-10-11 17:59 | disposition home or self-care (01) ==
LOC: ER 09:10
DX: M79.10 Myalgia, unspecified site (principal); R53.1 Weakness; R68.83 Chills (without fever); I11.0 Hypertensive heart disease with heart failure; I50.9 Heart failure, unspecified; J44.9 Chronic obstructive pulmonary disease, unspecified; E78.00 Pure hypercholesterolemia, unspecified; G47.30 Sleep apnea, unspecified; I48.91 Unspecified atrial fibrillation; Z86.73 Personal history of transient ischemic attack (TIA), and cerebral infarction without residual deficits; Z88.8 Allergy status to other drugs, medicaments and biological substances
CPT/HCPCS: 36415; 71045; 71250; 80048; 81003; 83880; 84145; 84484; 85025; 93005; 96374; 99285; A4615; J2405; J7030; 85008

== ENCOUNTER 2025-01-05 06:03 | Emergency (ER) | payer MEDICARE ==
[~2025-01-05] VITALS: Ht 188 cm; Wt 103.4 kg
--- NOTE | 2025-01-05 06:10 | ELECTROCARDIOGRAPH REPORT ---
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 STEVEN Rogers Measurements Intervals [place] Rate: 77 P: -3 MO: 275 QRS: -36 QRSD: 105 T: 44 QT: 384 QTc: 435 Interpretive Statements sinus rhythm Prolonged [place] interval Inferior infarct, old Anterior infarct, old Electronically Signed On 01-06-2025 12:56:[address] STEVEN Rogers Please click the below link to view image of tracing.
[2025-01-05 06:12] VITALS: TEMP 97.9
[2025-01-05 06:49] LABS: MEAN PLATELET VOLUME 7.3 FL (7.4-10.4); RED CELL DISTRIBUTION WIDTH 18.4 % (11.5-14.5)
--- NOTE | 2025-01-05 06:49 | RADIOLOGY REPORT ---
MEDICAL RECORDS NUMBER: [facility]-[id number] PROCEDURE: DI CHEST,SINGLE VIEW DATE: 01/05/2025 06:24 AM HISTORY: CP Views:1 COMPARISON: CT CT CHEST on DOS: 10/11/24, DI CHEST,SINGLE VIEW on DOS: 10/11/24, CT CT CHEST on DOS: 09/02/24, DI CHEST,SINGLE VIEW on DOS: 09/02/24, DI CHEST,SINGLE VIEW on DOS: 07/05/24 FINDINGS/IMPRESSION: Lungs: Diffuse minor chronic changes of the lungs are noted. No acute lung pathology is seen. Mediastinum: Mediastinal structures appear unremarkable... Skeletal: The skeletal structures appear unremarkable.
[2025-01-05 07:04] LABS: CREATININE 1.25 MG/DL (0.60-1.10); TOTAL CARBON DIOXIDE 28.8 MMOL/L (24-32); eCRCL 65 ML/MIN; eGFR 57 ML/MIN
[2025-01-05 07:10] LABS: PRO BRAIN NATRIURETIC PEPTIDE 32 PG/ML (0-125)
[2025-01-05 08:27] LABS: LEUKOCYTE ESTERASE ,URINE NEGATIVE (Neg); NITRITES, URINE NEGATIVE (Neg); OCCULT BLOOD,URINE NEGATIVE (Neg)
[2025-01-05 08:44] LABS: UA COLLECTION TYPE NON-SPECIFIED
--- NOTE | 2025-01-05 09:07 | Physician Documentation ---
History of Present Illness ~ General Chief Complaint: Multiple Medical Complaints Stated Complaint: ABD PAIN/SWOLLEN LEG Time Seen by MD: 08:50 Primary Medical Doctor: [facility] Source: patient (12) Mode of Arrival: Dropped Off, Wheelchair History of Present Illness Initial Comments Patient comes in with multiple medical complaints. He reports that he has been admitted several times with sepsis in the last four months, and is worried that he might be getting septic again. The patient has several complaints, which he reports started about five days ago with a new swelling and discoloration to his right leg. I know this patient from [facility], and he does have a history of chronic venous insufficiency. He does have a new wound anteriorly as well, and has persistent swelling despite using his compression. Patient complains of myalgias and stomach upset, although this seems to be chronic. He has a sore throat, and occasional flare-ups of his chronic shortness of breath. He denies any fever, any vomiting, any chest pain, or c ough. He does have some mild congestion. Medication Reconciliation Allergies: Coded Allergies: rifampin (Verified Allergy, Unknown, 09/02/24) tetanus and diphtheria toxoids (Unverified Allergy, Unknown, 09/02/24) Scheduled Amiodarone Hcl (Cordarone), 200 MG PO DAILY, (Reported) Apixaban (Eliquis), 1 TAB PO Q12H, (Reported) Aspirin (Aspirin), 1 TAB PO DAILY, (Reported) Bupropion HCl (Bupropion Xl), 1 TAB PO DAILY, (Reported) Docusate Sodium (Docusate Sodium), 1 CAP PO Q12H, (Reported) Duloxetine HCl (Duloxetine HCl), 3 CAP PO DAILY, (Reported) Finasteride (Finasteride), 1 TAB PO DAILY, (Reported) Fluconazole* (Diflucan*), 1 TAB PO Q72H, (Reported) Fluoxetine HCl (Fluoxetine HCl), 2 CAP PO DAILY, (Reported) Lactobacillus Rhamnosus (Culturelle), 1 CAP PO DAILY, (Reported) Levothyroxine Sodium (Levothyroxine Sodium), 1 TAB PO DAILY, (Reported) Linaclotide (Linzess), 1 CAP PO DAILY, (Reported) Naldemedine Tosylate (Symproic), 1 TAB PO DAILY, (Reported) Nystatin (Nystatin), 4 ML PO QID, (Reported) Pantoprazole Sodium (Pantoprazole Sodium), 1 TAB PO BID, (Reported) Pregabalin (Pregabalin), 1 CAP PO TID, (Reported) Tamsulosin Hcl (Flomax), 2 CAP PO DAILY, (Reported) Scheduled PRN Buprenorphine Hcl (Buprenorphine Hcl), 1 TAB SL TID PRN for pain, (Reported) Clonazepam (Clonazepam), 0.5 MG PO TID PRN for for anxiety/agitation, (Reported) Ondansetron HCl (Ondansetron HCl), 1 TAB PO Q8H PRN for nausea/vomiting, (Reported) Oxycodone Hcl/Acetaminophen (Oxycodone-Acetaminophen 10-325), 1 TAB PO BID PRN for severe pain, (Reported) Miscellaneous Medications Naloxegol Oxalate (Movantik), 4 TAB, (Reported) Past Medical History Past Medical History: CVA/TIA/Stroke, Sinusitis, Atrial Fibrillation, Co ngestive Heart Failure, High Cholesterol, Hypertension, COPD, Sleep Apnea, *GI/HEPATOBILIARY*, Bowel Obstruction, Peptic Ulcer Disease, UTI, Chronic Pain, Cellulitis, Anxiety Other Past Medical History: Peripheral neuropathy, chronic venous insufficiency Past Surgical History: no surgical history Patient History: (COPD) Chronic obstructive lung disease MOTHER, Onset:60 years & older DVT FATHER, Onset:60 years & older FH: colon cancer brother, Onset:50's - 60 Smoking Status: Never smoker Alcohol Use: Sober Drug Use: none Lives with: Spouse Lives In: Home Occupation: retired Review of Systems All Other Systems at this time: Reviewed and Negative Physical Exam Physical Exam Vital Signs: Temperature: 97.9, Heart Rate: 65, Respiratory Rate: 16, BP: 172/81, Pulse Oximetry: 96, Weight: 103.400 Oxygen Flow Rate: 0 Physical Exam General: Pt is awake, alert, oriented x4 in no acute distress, chronically ill- appearing and deconditioned Head: Normocephalic and atraumatic. Eyes: Conjunctiva normal. ENT: Mucous membranes moist. Neck: Supple. Chest: Clear to auscultation bilaterally, without rales, rhonchi, or wheezes. There is no accessory muscle use or retractions. Cardiac: Regular rate and rhythm without murmurs, gallops or rubs. Palpation of the chest wall is normal. Abd: Soft, nondistended, nontender, with normoactive bowel sounds. No guarding or rebound. Extremities: Patient with bilateral lower extremity edema. He has circumferential edema and stasis dermatitis to the right leg, with the erythema well below the knee, extending slightly onto the medial and lateral ankle area. Patient with varicosities throughout, an area of 2 x 3 cm of chronic nonhealing wound in the anterior tibia. Skin: [place], warm and dry with no significant rash appreciated. Neuro: Cranial nerves II-XII grossly intact. The gait is normal. Progress Results/Orders Results/Orders Orders - WANDA GREENFIELD MD Culture Blood (01/05/25 09:08) Vl Venous (01/05/25 09:08) Covid19 Binax Poc Result Entry (01/05/25 09:08) Completed Orders - WANDA GREENFIELD MD Lacticsepsis (01/05/25 09:08) Vl Venous (01/05/25 09:08) Influenza Type A&B Rapid Test (01/05/25 09:08) Piperacillin/Tazo 3.375gm/50ml (Zosyn 3. (01/05/25 09:10) Hydrocodone/Apap 10/325 ([place] 10/325mg (01/05/25 10:00) Medications Received in ER Medications (Trade) Dose Ordered Sig/Rell Route PRN Reason Start Time Stop Time Status Last Admin Dose Admin Piperacillin/ Tazobactam/ Dextrose 50 ml @ 100 mls/hr ONCE ONCE IV 01/05/25 09:10 01/05/25 09:39 DC 01/05/25 09:28 100 MLS/HR ([place] 10/325mg tab) 1 tab ONCE ONCE PO 01/05/25 10:00 01/05/25 10:01 DC 01/05/25 10:04 1 TAB Vital Signs 01/05/25 01/05/25 01/05/25 01/05/25 06:12 07:33 07:42 09:26 Temp 97.9 Pulse 65 65 65 Resp 18 18 16 16 B/P (MAP) 149/71 172/81 (111) 142/95 (111) Pulse Ox 94 96 95 O2 Flow Rate 0 0 01/05/25 01/05/25 01/05/25 10:04 10:52 11:49 Pulse 72 74 Resp 16 18 18 B/P (MAP) 177/117 (137) 133/103 (113) Pulse Ox 94 94 O2 Flow Rate 0 0 Laboratory Tests Test 01/05/25 06:28 01/05/25 07:39 01/05/25 08:12 01/05/25 09:23 White Blood Count 9.2 Red Blood Count 4.40 L Hemoglobin 10.2 L Hematocrit 32.0 L Mean Corpuscular Volume 72.7 L Mean Corpuscular Hemoglobin 23.1 L Mean Corpuscular Hemoglobin Concent 31.8 L Red Cell Distribution Width 18.4 H Platelet Count 320 Mean Platelet Volume 7.3 L Neutrophils (%) (Auto) 64.5 Lymphocytes (%) (Auto) 20.3 L Monocytes (%) (Auto) 8.5 Eosinophils (%) (Auto) 5.7 Basophils (%) (Auto) 1.0 Neutrophils # (Auto) 6.0 Lymphocytes # (Auto) 1.9 Monocytes # (Auto) 0.8 Eosinophils # (Auto) 0.5 Basophils # (Auto) 0.1 CBC Comment Sodium Level 143 Potassium Level 4.4 Chloride Level 108 H Carbon Dioxide Level 28.8 Anion Gap 6 L Blood Urea Nitrogen 29 H Creatinine 1.25 H Estimated GFR/1.73 m2 57 BUN/Creatinine Ratio 23.2 H Glucose Level 113 H Calcium Level 8.6 Total Bilirubin 0.2 Aspartate Amino Transf (AST/SGOT) 17 Alanine Aminotransferase (ALT/SGPT) 13 Alkaline Phosphatase 133 H Troponin I High Sensitivity 10 8 8 Pro-B-Type Natriuretic Peptide 32 Total Protein 6.9 Albumin 3.4 Globulin 3.5 Albumin/Globulin Ratio 1.0 L Lipase 30 Chemistry Comments Urine Specimen Description Non-specified Urine Color Yellow Urine Clarity Clear Urine pH 7.0 Urine Specific [place] 1.020 Urine Protein Negative Urine Glucose (UA) Negative Urine Ketones Negative Urine Occult Blood Negative Urine Nitrite Negative Urine Bilirubin Negative Urine Urobilinogen 0.2 Urine Leukocyte Esterase Negative Urine Culture Indicated Not ind Volume Urine Centrifuged 10 ml Urine Comment Troponin I High Sens Percent Delta 20 0 Troponin I Hi Sens Absolute Change -2 0 Lactic Acid Level 0.7 Test 01/05/25 09:24 Influenza Type A Antigen Negative Influenza Type B Antigen Negative SARS-CoV-2 Antigen (Rapid) Negative Microbiology Date/Time Source Procedure Growth Status 11/16/25 09:23 Blood Iv Start Blood Culture - Preliminary NEGATIVE (LESS THAN 24 HOURS) Resulted Medical Decision Making Additional information obtaine: old records Findings Differential Diagnosis Patient presenting with several complaints and concerns for sepsis, no evidence for sepsis found on exam today. Examination is reassuring, except for a mild stasis dermatitis with possible secondary cellulitis over the right lower extremity, with a chronic nonhealing venous leg ulceration. He has no evidence for deep vein thrombosis. Laboratory workup unremarkable, and no other infectious pathology noted. Urinalysis is negative. Patient without respiratory symptoms. No evidence for acute cardiac ischemia. Patient is to be started on antibiotics for his leg, and he is asked to call the [facility] to reestablish care as his wound will require debridement and he will likely need compression, and referral to vein specialist. Patient understands to return to the emergency department for any spreading or worsening of the redness in his leg or any other concerns. Departure Time of Disposition: 12:41 Disposition: 01 HOME / SELF CARE / HOMELESS Impression: Primary Impression: Stasis dermatitis Additional Impressions: Cellulitis Qualified Codes: L03.115 - Cellulitis of right lower limb Venous stasis ulcer Qualified Codes: I83.012 - Varicose veins of right lower extremity with ulcer of calf; L97.212 - Non-pressure chronic ulcer of right calf with fat layer exposed Condition: Stable Discharge Instructions: Venous Ulcer Additional Instructions: Please take the antibiotics and finished them, as prescribed. Continue your compression. Call the wound care center at [phone] to reestablish care so that you can begin to have debridements and care for your wound. Return to the emergency department immediately if you have spreading redness upward on your leg, fever, pus from your wound, or any other concerns. Referrals: NO PRIMARY CARE PROVIDER (PCP) Prescriptions Amox Tr/Potassium Clavulanate 875/125 MG (Augmentin 875/125 MG) 875 Mg-125 Mg Tablet 1 TAB PO Q12H for 10 Days, #20 TAB Prov: WANDA GREENFIELD MD 01/05/25 Education Educated: Patient Educated regarding: diagnosis, treatment Signature Scribe Signature: Attestation: WANDA GREENFIELD MD Jan 05, 2025 09:07
[2025-01-05] MEDS: piperacillin/tazo 3.375gm/50ml 50 ML IV ONE (09:28)
[2025-01-05 09:48] LABS: INFLUENZA TYPE A ANTIGEN RAPID NEGATIVE (Negative); INFLUENZA TYPE B ANTIGEN RAPID NEGATIVE (Negative)
[2025-01-05] MEDS: HYDROcodone/acetaminophen 10/325mg tab PO ONE (10:04)
--- NOTE | 2025-01-05 10:26 | VASCULAR REPORT ---
Technique: Real-time ultrasound imaging, with color Doppler and compression of the right common femoral vein, femoral vein, greater saphenous vein, and popliteal vein. Indication: Right lower extremity pain/swelling Comparison: VASC VL VENOUS on DOS: 07/05/24, VASC VL VENOUS on DOS: 04/30/24 Findings: There is normal compressibility and flow augmentation in all of the imaged right lower extremity deep veins. There is thrombosis of a varicose vein in the distal right thigh, possibly arising of the right great saphenous vein. There is right lower extremity soft tissue edema. Impression: Thrombosis of a superficial vein in the right distal thigh consistent with superficial vein thrombus. Correlate clinically for thrombophlebitis. No evidence of DVT in the right lower extremity. Right lower extremity soft tissue edema.
[2025-01-05] MEDS ORDERED: AMOX-580 PO (12:50)
[2025-01-05 12:59] VITALS: BP 166/85; PULSE 72; RESP 16; O2SAT 94
== END 2025-01-05 13:18 | disposition home or self-care (01) ==
LOC: ER 06:04
DX: I83.012 Varicose veins of right lower extremity with ulcer of calf (principal); I87.2 Venous insufficiency (chronic) (peripheral); L03.115 Cellulitis of right lower limb; E78.00 Pure hypercholesterolemia, unspecified; G47.30 Sleep apnea, unspecified; G89.29 Other chronic pain; F41.9 Anxiety disorder, unspecified; I25.2 Old myocardial infarction; I11.0 Hypertensive heart disease with heart failure; I50.9 Heart failure, unspecified; I48.91 Unspecified atrial fibrillation; J44.9 Chronic obstructive pulmonary disease, unspecified; Z86.73 Personal history of transient ischemic attack (TIA), and cerebral infarction without residual deficits; Z87.11 Personal history of peptic ulcer disease; Z87.440 Personal history of urinary (tract) infections; Z88.1 Allergy status to other antibiotic agents; Z79.899 Other long term (current) drug therapy; Z79.82 Long term (current) use of aspirin; Z20.822 Contact with and (suspected) exposure to COVID-19
CPT/HCPCS: 36415; 71045; 80053; 81003; 83605; 83690; 83880; 84484; 85025; 87040; 87804; 87811; 93005; 93971; 96365; 99285; A6222; A6446; A6449; J2543